=== PATIENT | female | born 1930 | race Caucasian/White ===

== ENCOUNTER 2019-06-11 10:04 | Inpatient (IN) | payer MEDICARE, OTHER ==
[2019-06-11] MEDS ORDERED: HYDROmorphone 0.5 MG/0.5 ML Syringe IVPUSH ONE (11:20)
--- NOTE | 2019-06-11 12:28 | EDM.PDOC ---
ED HPI GENERAL MEDICAL PROBLEM - General Chief Complaint: Lower Extremity Injury/Pain Stated Complaint: FALL,LEFT KNEE PAIN Time Seen by Provider: 06/11/19 11:07 Source of Information: Reports: [facility]sp Records, RN Notes Reviewed, Other ( Staff member from [facility] [place]) History Limitations: Reports: Altered Mental Status (hx/of dementia) - History of Present Illness INITIAL COMMENTS - FREE TEXT/NARRATIVE: Patient is an 88-year-old female who presents to the ED for evaluation of a left leg injury. Patient lives at the [facility] - [place], [place], which is a memory care facility. She presents with a staff member from the [facility] [place], [place]. The patient fell in her bathroom this morning, there was no one present at that time. But the patient denies any sort of head injury, there is no obvious discoloration, bruising, or swelling noted to the head. She is complaining of severe left knee pain, and also pain into her left hip. She states that her whole leg from her tippy toes to her hip hurts. She has not had any prior injury to this leg that would have been causing issues beforehand. Is not been able to bear weight, and was brought here by wheelchair and bus, and then was transferred to the bed by Misty lift in the ER. Patient is alert and coherent at this time. She does have a history of A. fib, and she is on metoprolol, and Eliquis for this. She would rate her pain at a 10 out of 10. Left Hip Pain Score (Numeric/FACES): 10 Left Knee Pain Score (Numeric/FACES): 10 - Related Data Allergies Allergy/AdvReac Type Severity Reaction Status Date / Time aloe vera Allergy Rash Verified 06/11/19 10:36 Home Meds: Home Meds Acetaminophen [Tylenol Arthritis Pain] 650 mg PO Q8H PRN 06/11/19 [History] Apixaban [Eliquis] 2.5 mg PO BID 06/11/19 [History] Ascorbate Calcium [Vitamin C] 500 mg PO MOWEFR 06/11/19 [History] Bisacodyl [Dulcolax] 5 mg PO DAILY PRN 06/11/19 [History] Celecoxib 200 mg PO DAILY 06/11/19 [History] Cholecalciferol (Vitamin D3) [Vitamin D3] 1,000 unit PO DAILY 06/11/19 [History] Docusate Sodium [Colace] 100 mg PO TID PRN 06/11/19 [History] Ferrous Sulfate 325 mg PO MOWEFR 06/11/19 [History] Menthol [Biofreeze] 1 applic TOP TID PRN 06/11/19 [History] Metoprolol Succinate [Toprol Xl] 25 mg PO DAILY 06/11/19 [History] Mirtazapine 7.5 mg PO BEDTIME 06/11/19 [History] Omeprazole 20 mg PO DAILY 06/11/19 [History] Sertraline [Zoloft] 75 mg PO DAILY 06/11/19 [History] Past Medical History HEENT History: Reports: Other (See Below) Other HEENT History: has no teeth. 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 History: Reports: Neurological History: Reports: Other (See Below) Other Neuro History: dementia--pt resides in memory care facility Psychiatric History: Reports: Dementia Hematologic History: Reports: Anemia - Past Surgical History HEENT Surgical History: Reports: Tonsillectomy GI Surgical History: Reports: Appendectomy, Cholecystectomy Social & Family History - Tobacco Use Smoking Status *Q: Never Smoker Second Hand Smoke Exposure: No - Caffeine Use Caffeine Use: Reports: Tea - Recreational Drug Use Recreational Drug Use: No Review of Systems - Review of Systems Review Of Systems: See Below Constitutional: Denies: Chills, Fever Respiratory: Denies: Shortness of Breath Cardiovascular: Denies: Chest Pain GI/Abdominal: Denies: Abdominal Pain, Diarrhea, Nausea, Vomiting Genitourinary: Denies: Dysuria Musculoskeletal: Reports: Joint Pain (Left hip/knee) Skin: Denies: Bruising Neurological: Denies: Numbness, Tingling ED EXAM, GENERAL - Physical Exam Exam: See Below Exam Limited By: Altered Mental Status (pt follows commands appropriately) General Appearance: Alert, WD/WN, No Apparent Distress Eye Exam: Bilateral Eye: EOMI, Normal Inspection, PERRL Ears: Normal External Exam, Normal Canal, Hearing Grossly Normal, Normal TMs Nose: Normal Inspection Throat/Mouth: Normal Inspection, Normal Lips, Normal Teeth, Normal Gums, Normal Oropharynx, Normal Voice, No Airway Compromise Head: Atraumatic, Normocephalic Neck: Normal Inspection Respiratory/Chest: No Respiratory Distress, Lungs Clear, Normal Breath Sounds, No Accessory Muscle Use, Chest Non-Tender Cardiovascular: Normal Peripheral Pulses, Regular Rate, Rhythm, No Murmur Peripheral Pulses: 3+: Dorsalis Pedis (L), Dorsalis Pedis (R) GI/Abdominal: Normal Bowel Sounds, Soft, Non-Tender, No Distention, No Mass Extremities: Normal Inspection, Normal Capillary Refill, Limited Range of Motion (pt unable to move L leg much at all d/t pain), Other (pt is tender to palpation of superior left knee, slight deformity noted, no pain with palpation of L hip joing). No: Joint Swelling Neurological: Alert, Normal Cognition (appropriate for her self), No Motor/ Sensory Deficits Psychiatric: Normal Affect, Normal Mood Skin Exam: Warm, Dry, Intact, Normal Color, No Rash EKG INTERPRETATION EKG Date: 06/11/19 Time: 12:31 Rhythm: A-Fib (Rate of 75-100.) Rate (Beats/Min): 83 [place]: Normal P-Wave: Absent QRS: Normal ST-T: Normal QT: Prolonged Comparison: NA - No Prior EKG EKG Interpretation Comments: EKG was reviewed by myself and Dr. Rodriguez, no acute ischemic changes were noted. Course - Vital Signs Last Recorded V/S: Last Vital Signs Temp 98.6 F 06/11/19 19:15 Pulse 77 06/11/19 21:32 Resp 14 06/11/19 19:15 BP 128/81 06/11/19 21:02 Pulse Ox 98 06/11/19 21:32 - Orders/Labs/Meds Orders: Active Orders 24 hr Category Date Time Status Antiembolic Devices [RC] BID Care 06/11/19 19:38 Active Elevate Extremity [RC] BID Care 06/11/19 19:38 Active Insert Coles Catheter [Insert Urinary Catheter] [OM.PC] Care 06/11/19 15:45 Ordered Q24H Notify Provider Consults [RC] ASDIRECTED Care 06/11/19 12:30 Active Notify Provider [RC] ASDIRECTED Care 06/11/19 18:32 Active Oxygen Therapy [RC] ASDIRECTED Care 06/11/19 18:32 Active Pulse Oximetry [RC] ASDIRECTED Care 06/11/19 18:32 Active RT Incentive Spirometry [RC] Q1HWA Care 06/11/19 19:35 Active Urinary Catheter Assessment [RC] 04,10,16,22 Care 06/11/19 15:39 Active Consult to Physician [CONS] Stat Cons 06/11/19 12:30 Active OT Evaluation and Treatment [CONS] Routine Cons 06/11/19 19:35 Active PT Evaluation and Treatment [CONS] Routine Cons 06/11/19 19:35 Active Knee 1V or 2V Lt [CR] Timed Exams 06/11/19 19:38 Taken COMPREHENSIVE METABOLIC PN,CMP [CHEM] AM Lab 06/12/19 19:45 Ordered Acetaminophen/HYDROcodone [Dingle 325-5 MG] Med 06/11/19 19:41 Active 1 - 2 tab PO Q6H PRN ceFAZolin [Ancef] 2 gm Med 06/12/19 00:00 Active Premix Bag 1 bag IV Q8H Schedule Procedure [COMM] Stat Oth 06/11/19 15:08 Ordered Sequential Compression Device [OM.PC] Per Unit Routine Oth 06/11/19 19:35 Ordered Weight bearing status [OM.PC] Routine Oth 06/11/19 19:42 Ordered Medication Orders Hydrocodone Bitart/Acetaminophen (Dingle 325-5 Mg) 1 - 2 tab PO Q6H PRN PRN Reason: Pain Last Admin: 06/11/19 20:25 Dose: 2 tab Cefazolin Sodium/Dextrose 2 gm (/ Premix) 50 mls @ 100 mls/hr IV Q8H BETH Stop: 06/12/19 16:29 Lactated Ringer's (Ringers, Lactated) 1,000 mls @ 75 mls/hr IV ASDIRECTED BETH Last Admin: 06/11/19 20:25 Dose: 75 mls/hr Labs: Laboratory Tests 06/11/19 06/11/19 Range/Units 10:55 10:55 WBC 8.82 (3.98-10.04) K/mm3 RBC 4.18 (3.98-5.22) M/mm3 Hgb 10.7 L (11.2-15.7) gm/dl Hct 32.3 L (34.1-44.9) % MCV 77.3 L (79.4-94.8) fl MCH 25.6 (25.6-32.2) pg MCHC 33.1 (32.2-35.5) g/dl RDW Std Deviation 46.9 H (36.4-46.3) fL Plt Count 323 (182-369) K/mm3 MPV 10.4 (9.4-12.3) fl Neut % (Auto) 79.9 H (34.0-71.1) % Lymph % (Auto) 11.2 L (19.3-51.7) % [place] % (Auto) 7.6 (4.7-12.5) % Eos % (Auto) 0.9 (0.7-5.8) Baso % (Auto) 0.1 (0.1-1.2) % Neut # (Auto) 7.04 H (1.56-6.13) K/mm3 Lymph # (Auto) 0.99 L (1.18-3.74) K/mm3 [place] # (Auto) 0.67 H (0.24-0.36) K/mm3 Eos # (Auto) 0.08 (0.04-0.36) K/mm3 Baso # (Auto) 0.01 (0.01-0.08) K/mm3 Sodium 136 (136-145) mEq/L Potassium 4.1 (3.5-5.1) mEq/L Chloride 103 (98-107) mEq/L Carbon Dioxide 23 (21-32) mEq/L Anion Gap 14.1 (5-15) BUN 28 H (7-18) mg/dL Creatinine 1.3 H (0.55-1.02) mg/dL Est Cr Clr Drug Dosing 24.57 mL/min Estimated GFR (MDRD) 39 (>60) mL/min BUN/Creatinine Ratio 21.5 H (14-18) Glucose 117 H (83-115) mg/dL Calcium 8.2 L (8.5-10.1) mg/dL Total Bilirubin 1.0 (0.2-1.0) mg/dL AST 26 (15-37) U/L ALT 40 (14-59) U/L Alkaline Phosphatase 101 (46-116) U/L Total Protein 6.2 L (6.4-8.2) g/dl Albumin 3.0 L (3.4-5.0) g/dl Globulin 3.2 gm/dL Albumin/Globulin Ratio 0.9 L (1-2) Meds: Medications Generic Name Dose Route Start Last Admin Trade Name Danilo PRN Reason Stop Dose Admin Hydrocodone Bitart/Acetaminophen 1 - 2 tab 06/11/19 19:41 06/11/19 20:25 Dingle 325-5 Mg PO 2 tab Q6H PRN Administration Pain Cefazolin Sodium/Dextrose 2 gm 50 mls @ 100 mls/hr 06/12/19 00:00 / Premix IV 06/12/19 16:29 Q8H BETH Lactated Ringer's 1,000 mls @ 75 mls/hr 06/11/19 20:00 06/11/19 20:25 Ringers, Lactated IV 75 mls/hr ASDIRECTED BETH Administration Discontinued Medications Generic Name Dose Route Start Last Admin Trade Name Danilo PRN Reason Stop Dose Admin Bupivacaine HCl Confirm 06/11/19 15:40 Sensorcaine-Mpf 0.25% Administered 06/11/19 15:41 Dose 20 ml .ROUTE .STK-MED ONE Bupivacaine HCl Confirm 06/11/19 16:25 06/11/19 18:12 Sensorcaine-Mpf 0.25% Administered 06/11/19 16:26 20 ml Dose Administration 10 ml .ROUTE .STK-MED ONE Bupivacaine HCl/Dextrose Confirm 06/11/19 15:28 Marcaine 0.75% Spinal Administered 06/11/19 15:29 Dose 2 ml .ROUTE .STK-MED ONE Cefazolin Sodium Confirm 06/11/19 15:23 Ancef Administered 06/11/19 15:24 Dose 2 gm .ROUTE .STK-MED ONE Ephedrine Sulfate Confirm 06/11/19 16:15 Ephedrine In Ns Administered 06/11/19 16:16 Dose 25 mg .ROUTE .STK-MED ONE Ephedrine Sulfate Confirm 06/11/19 17:06 Ephedrine In Ns Administered 06/11/19 17:07 Dose 25 mg .ROUTE .STK-MED ONE Fentanyl Confirm 06/11/19 15:21 Sublimaze Administered 06/11/19 15:22 Dose 100 mcg .ROUTE .STK-MED ONE Hydromorphone HCl 0.5 mg 06/11/19 11:20 06/11/19 11:35 Dilaudid IVPUSH 06/11/19 11:21 0.5 mg ONETIME ONE Administration Sodium Chloride 1,000 mls @ 999 mls/hr 06/11/19 13:47 06/11/19 13:57 Normal Saline IV 06/11/19 14:47 999 mls/hr ONETIME ONE Administration Sodium Chloride 1,000 mls @ 999 mls/hr 06/11/19 14:33 06/11/19 15:16 Normal Saline IV 06/11/19 15:33 500 mls/hr ONETIME ONE Administration Lidocaine HCl Confirm 06/11/19 15:23 Xylocaine-Mpf 1% Administered 06/11/19 15:24 Dose 4 mls @ as directed .ROUTE .STK-MED ONE Lactated Ringer's Confirm 06/11/19 15:30 Ringers, Lactated Administered 06/11/19 15:31 Dose 1,000 mls @ as directed .ROUTE .STK-MED ONE Phenylephrine HCl Confirm 06/11/19 16:22 Phenylephrine In Ns 100 Mcg/Ml Administered 06/11/19 16:23 Dose 1 mg .ROUTE .STK-MED ONE Phenylephrine HCl Confirm 06/11/19 16:47 Phenylephrine In Ns 100 Mcg/Ml Administered 06/11/19 16:48 Dose 1 mg .ROUTE .STK-MED ONE Phenylephrine HCl Confirm 06/11/19 18:01 Phenylephrine In Ns 100 Mcg/Ml Administered 06/11/19 18:02 Dose 1 mg .ROUTE .STK-MED ONE Propofol Confirm 06/11/19 15:20 Diprivan 20 Ml Administered 06/11/19 15:21 Dose 200 mg .ROUTE .STK-MED ONE - Re-Assessments/Exams Free Text/Narrative Re-Assessment/Exam: 06/11/19 12:28 Patient presents to the ED for the evaluation of a left leg injury. Did order left hip and left knee x-ray, and this does demonstrate a distal anterior displaced fracture of the left femur. Patient was given 0.5 mg of Dilaudid, and has achieved adequate pain control with this. Labs were drawn, CBC, CMP, will order EKG and chest x-ray as the patient will likely need fixation of this in the OR due to the displacement. I have called Dr. Michelle, so he can look at the films. He is in surgery, and will review this between cases. 06/11/19 14:34 Official radiology read is pending on both studies, however the hospitalist Dr. Blanquita Glover was over to evaluate the patient, and is questioning an impacted fracture of the left hip. I have called radiology to have Dr. Faulkner read this urgently as it was made known to me that Dr. Michelle is trying to get her cleared for surgery sooner rather than later. Upon review of the films, the head of the left femur does look slightly impacted, this was not obvious when I looked at the initial films. The whole hip joint is severely osteoarthritic. The patient does have an anteriorly displaced distal femur fracture. Labs are essentially WNL, and Chest x-ray and EKG was also done, EKG demonstrated A-fib, Chest x-ray demonstrates no focal abnormalities, but again, official radiology read is pending at this time. RN has informed me that her blood pressure is mildly low systolically is in the high 80s. I did order 1 bolus of fluids to be given wide open, and have ordered a second to be ran at 500 mils per hour as her systolic blood pressure was still in the high 80s after the initial bolus. Of note patient is laying flat in bed, as this causes her the least amount of pain. 06/11/19 15:08 Official radiology reads are done, there is severe degenerative change noted within the left hip, but no impaction fracture appreciated. The only acute finding was the distal displaced femur fracture as noted in my prior reads. Chest x-ray shows findings suspicious for mild CHF, but no other acute findings. At this time it is made apparent to me that the patient is going for surgery for fixation of the femur fracture. Departure - Departure Time of Disposition: 14:30 Disposition: DC/Tfer to Critical Access [facility] Condition: Fair Clinical Impression: Femur fracture, left Qualifiers: Encounter type: initial encounter Femur location: distal, unspecified portion Fracture type: closed Fracture morphology: other fracture Qualified Code(s): S72.492A - Other fracture of lower end of left femur, initial encounter for closed fracture - Discharge Information *PRESCRIPTION DRUG MONITORING PROGRAM REVIEWED*: No *COPY OF PRESCRIPTION DRUG MONITORING REPORT IN PATIENT MURIEL: No Sepsis Event Note - Evaluation Sepsis Screening Result: No Definite Risk - Focused Exam Vital Signs: Vital Signs Temp Pulse Resp BP Pulse Ox Pulse Ox 06/11/19 19:15 98.6 F 14 109/83 94 L 06/11/19 19:00 18 93/76 94 L 06/11/19 18:50 14 102/77 98 06/11/19 18:40 14 90/54 L 100 93 L 06/11/19 18:26 98.2 F 13 90/64 93 L 06/11/19 15:30 98.3 F 80 17 111/80 95 06/11/19 13:15 98.5 F Date Exam was Performed: 06/11/19 Time Exam was Performed: 22:25 - My Orders Last 24 Hours: My Active Orders 06/11/19 12:30 Notify Provider Consults [RC] ASDIRECTED Consult to Physician [CONS] Stat - Assessment/Plan Last 24 Hours: My Active Orders 06/11/19 12:30 Notify Provider Consults [RC] ASDIRECTED Consult to Physician [CONS] Stat
[2019-06-11] MEDS ORDERED: Sodium Chloride 0.9% 1,000 ML IV ONE ×2 (13:47→14:33)
--- NOTE | 2019-06-11 14:26 | PCM.CONS ---
H&P History of Present Illness - General Date of Service: 06/11/19 - History of Present Illness Initial Comments - Free Text/Narative: --History obtained by chart review-- Patient fell in the restroom this morning around 9:30AM. Fall was not witnessed but they deny any LOC, loss of continence (bowel or urinary), head trauma, chest pain or any other complaints. Patient complained of pain immediately after fall for which she was brought to the ED by [facility] staff Left Hip Pain Score (Numeric/FACES): 10 Left Knee Pain Score (Numeric/FACES): 10 - Related Data Allergies/Adverse Reactions: Allergies Allergy/AdvReac Type Severity Reaction Status Date / Time aloe vera Allergy Rash Verified 06/11/19 10:36 Past Medical History HEENT History: Reports: Other (See Below) Other HEENT History: has no teeth. 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: Neurological History: Reports: Other (See Below) Other Neuro History: dementia--pt resides in memory care facility Psychiatric History: Reports: Dementia Hematologic History: Reports: Anemia - Past Surgical History HEENT Surgical History: Reports: Tonsillectomy GI Surgical History: Reports: Appendectomy, Cholecystectomy Social & Family History - Tobacco Use Smoking Status *Q: Never Smoker Second Hand Smoke Exposure: No - Caffeine Use Caffeine Use: Reports: Tea - Recreational Drug Use Recreational Drug Use: No H&P Review of Systems - Review of Systems: Review Of Systems: Unable To Obtain Reason Not Obtained: Patient with altered mental status, worse than baseline Exam - Exam Exam: See Below - Vital Signs Vital Signs: Last Vital Signs Temp 99.4 F 06/11/19 10:04 Pulse 94 06/11/19 10:04 Resp 20 06/11/19 10:04 BP 136/100 H 06/11/19 10:04 Pulse Ox 97 06/11/19 10:04 Weight: 75.478 kg - Exam General: Alert. No: Mild Distress HEENT: Conjunctiva Clear, EACs Clear, EOMI, Hearing Intact, PERRLA Neck: Supple, Trachea Midline Lungs: Clear to Auscultation, Normal Respiratory Effort Cardiovascular: Regular Rate, Regular Rhythm. No: Systolic Murmur, Diastolic Murmur, Rubs, Gallop/S3, Gallop/S4 GI/Abdominal Exam: Normal Bowel Sounds, Soft, Non-Tender, No Organomegaly Extremities: Other (pain in left hip) Skin: Ecchymosis Skin Alteration Location (Drawings Not To Scale): 1 - large ecchymotic lesion Psychiatric: Normal Affect, Normal Mood - Patient Data Result Diagrams: 06/11/19 10:55 06/11/19 10:55 Sepsis Event Note - Evaluation Sepsis Screening Result: No Definite Risk - Focused Exam Vital Signs: Vital Signs Temp Pulse Resp BP Pulse Ox 06/11/19 10:04 99.4 F 94 20 136/100 H 97 Date Exam was Performed: 06/11/19 Time Exam was Performed: 14:50 Consult PN Assessment/Plan POD#: 0 Problem List Initiated/Reviewed/Updated: Yes Plan: Femoral distal fracture 2/2 fall from own height Primary osteoarthritis of left hip Vitamin D deficiency Fall from own height this AM Fracture does not appear displaced Geriatric estimated risk probability for perioperative myocardial infarction or cardiac arrest 0.3% Estimated risk of adverse outcome with non-cardiac surgery, very low risk Estimate rate of myocardial infarction, pulmonary edema, ventricular fibrillation, cardiac arrest, or complete heart block 0.4% PLAN - Surgery today - Pain management Dementia Major depressive disorder Anxiety Can transfer, ambulate and bed mobility by himself Uses a 4 wheeled walker for ambulation Dress and personal hygiene as well as bathing with 1 assist Is continent as for toileting Home management with Sertraline, Mirtazapine PLAN - Continue home meds once PO Atrial fibrillation Chronic anticoagulation with Eliquis Large hematoma of right chest Rate controlled HR 88 on admission Home management with metoprolol and Eliquis Given 3 extra doses of double her prescribed dose last week She has a large ecchymotic lesion with hematoma on right chest that extends from axilla down to breast PLAN - Continue metoprolol after surgery - Monitor hematoma size and temperature, if worsening will et US Constipation Unknown last BM Home management with colace PLAN - Continue home colace once PO Hiatal hernia 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 esophagitis No signs of GI bleed Hb 10.7 PLAN - Continue Omeprazole PROPHYLAXIS: DVT- Hold Eliquis for now GI- Continue home omeprazole CODE STATUS: FULL CODE DISPOSITION: Patient will be admitted for surgery. PERIOPERATIVE RISK EVALUATION Geriatric estimated risk probability for perioperative myocardial infarction or cardiac arrest 0.3% Estimated risk of adverse outcome with non-cardiac surgery, very low risk Estimate rate of myocardial infarction, pulmonary edema, ventricular fibrillation, cardiac arrest, or complete heart block 0.4% Requesting Provider: Tee Michelle MD Date Consult Requested: 06/11/19 Reason for Consult: Pre-operative evaluation Patient History Reviewed: Yes Admission H&P Reviewed: Yes Consult Result/Summary:: PERIOPERATIVE RISK EVALUATION Geriatric estimated risk probability for perioperative myocardial infarction or cardiac arrest 0.3% Estimated risk of adverse outcome with non-cardiac surgery, very low risk Estimate rate of myocardial infarction, pulmonary edema, ventricular fibrillation, cardiac arrest, or complete heart block 0.4% Time Spent (in minutes): 60
--- NOTE | 2019-06-11 14:55 | PCM.PREANE ---
Preanesthetic Assessment - Procedure Proposed Procedure: ORIF left femur - Anesthesia/Transfusion/Family Hx Anesthesia History: Prior Anesthesia Without Reaction Family History of Anesthesia Reaction: No Transfusion History: Prior Transfusion Without Reaction - Review of Systems General: Fatigue Pulmonary: No Symptoms Cardiovascular: No Symptoms Gastrointestinal: No Symptoms Neurological: No Symptoms Other: Reports: None - Physical Assessment NPO Status Date: 06/11/19 NPO Status Time: 08:00 Vital Signs: Last Vital Signs Temp 37.4 C 06/11/19 10:04 Pulse 94 06/11/19 10:04 Resp 20 06/11/19 10:04 BP 136/100 H 06/11/19 10:04 Pulse Ox 97 06/11/19 10:04 Height: 1.57 m Weight: 75.478 kg ASA Class: 3 Mental Status: Other (dementia) Thyro-Mental Finger Breadths: 3 Mouth Opening Finger Breadths: 2 ROM/Head Extension: Full Lungs: Clear to Auscultation, Normal Respiratory Effort Cardiovascular: Irregular Rhythm (A-Fib) - Lab Values: Laboratory Last Values WBC 8.82 K/mm3 (3.98-10.04) 06/11/19 10:55 RBC 4.18 M/mm3 (3.98-5.22) 06/11/19 10:55 Hgb 10.7 gm/dl (11.2-15.7) L 06/11/19 10:55 Hct 32.3 % (34.1-44.9) L 06/11/19 10:55 MCV 77.3 fl (79.4-94.8) L 06/11/19 10:55 MCH 25.6 pg (25.6-32.2) 06/11/19 10:55 MCHC 33.1 g/dl (32.2-35.5) 06/11/19 10:55 RDW Std Deviation 46.9 fL (36.4-46.3) H 06/11/19 10:55 Plt Count 323 K/mm3 (182-369) 06/11/19 10:55 MPV 10.4 fl (9.4-12.3) 06/11/19 10:55 Neut % (Auto) 79.9 % (34.0-71.1) H 06/11/19 10:55 Lymph % (Auto) 11.2 % (19.3-51.7) L 06/11/19 10:55 [place] % (Auto) 7.6 % (4.7-12.5) 06/11/19 10:55 Eos % (Auto) 0.9 (0.7-5.8) 06/11/19 10:55 Baso % (Auto) 0.1 % (0.1-1.2) 06/11/19 10:55 Neut # (Auto) 7.04 K/mm3 (1.56-6.13) H 06/11/19 10:55 Lymph # (Auto) 0.99 K/mm3 (1.18-3.74) L 06/11/19 10:55 [place] # (Auto) 0.67 K/mm3 (0.24-0.36) H 06/11/19 10:55 Eos # (Auto) 0.08 K/mm3 (0.04-0.36) 06/11/19 10:55 Baso # (Auto) 0.01 K/mm3 (0.01-0.08) 06/11/19 10:55 Sodium 136 mEq/L (136-145) 06/11/19 10:55 Potassium 4.1 mEq/L (3.5-5.1) 06/11/19 10:55 Chloride 103 mEq/L (98-107) 06/11/19 10:55 Carbon Dioxide 23 mEq/L (21-32) 06/11/19 10:55 Anion Gap 14.1 (5-15) 06/11/19 10:55 BUN 28 mg/dL (7-18) H 06/11/19 10:55 Creatinine 1.3 mg/dL (0.55-1.02) H 06/11/19 10:55 Est Cr Clr Drug Dosing 24.57 mL/min 06/11/19 10:55 Estimated GFR (MDRD) 39 mL/min (>60) 06/11/19 10:55 BUN/Creatinine Ratio 21.5 (14-18) H 06/11/19 10:55 Glucose 117 mg/dL (83-115) H 06/11/19 10:55 Calcium 8.2 mg/dL (8.5-10.1) L 06/11/19 10:55 Total Bilirubin 1.0 mg/dL (0.2-1.0) 06/11/19 10:55 AST 26 U/L (15-37) 06/11/19 10:55 ALT 40 U/L (14-59) 06/11/19 10:55 Alkaline Phosphatase 101 U/L (46-116) 06/11/19 10:55 Total Protein 6.2 g/dl (6.4-8.2) L 06/11/19 10:55 Albumin 3.0 g/dl (3.4-5.0) L 06/11/19 10:55 Globulin 3.2 gm/dL 06/11/19 10:55 Albumin/Globulin Ratio 0.9 (1-2) L 06/11/19 10:55 - Imaging/EKG Impressions: EKG A-Fib with prolonged QT - Allergies Allergies/Adverse Reactions: Allergies Allergy/AdvReac Type Severity Reaction Status Date / Time aloe vera Allergy Rash Verified 06/11/19 10:36 - Anesthesia Plan Beta Irma: Metoprolol Med Last Dose Date: 06/11/19 Med Last Dose Time: 09:30 - Acknowledgements Anesthesia Type Planned: Spinal Pt an Appropriate Candidate for the Planned Anesthesia: Yes Alternatives and Risks of Anesthesia Discussed w Pt/Guardian: Yes Pt/Guardian Understands and Agrees with Anesthesia Plan: Yes PreAnesthesia Questionnaire HEENT History: Reports: Other (See Below) Other HEENT History: has no teeth. Cardiovascular History: Reports: Afib Gastrointestinal History: Reports: GERD Genitourinary History: Reports: UTI, Recurrent [employer] History: Reports: Neurological History: Reports: Other (See Below) Other Neuro History: dementia--pt resides in memory care facility Psychiatric History: Reports: Dementia Hematologic History: Reports: Anemia - Past Surgical History HEENT Surgical History: Reports: Tonsillectomy GI Surgical History: Reports: Appendectomy, Cholecystectomy - SUBSTANCE USE Smoking Status *Q: Never Smoker Second Hand Smoke Exposure: No Days Per Week of Alcohol Use: 0 Number of Drinks Per Day: 0 Total Drinks Per Week: 0 Recreational Drug Use History: No - CURRENT (IN HOUSE) MEDS Current Meds: Current Medications Sodium Chloride (Normal Saline) 1,000 mls @ 999 mls/hr IV ONETIME ONE Stop: 06/11/19 15:33 Discontinued Medications Hydromorphone HCl (Dilaudid) 0.5 mg IVPUSH ONETIME ONE Stop: 06/11/19 11:21 Last Admin: 06/11/19 11:35 Dose: 0.5 mg Sodium Chloride (Normal Saline) 1,000 mls @ 999 mls/hr IV ONETIME ONE Stop: 06/11/19 14:47 Last Admin: 06/11/19 13:57 Dose: 999 mls/hr
--- NOTE | 2019-06-11 15:03 | CR ---
Left knee: AP and lateral views of the left knee were obtained. Displaced distal femur fracture is seen within the epicondylar region. Displacement of the proximal fragment is anterior with slight overlapping of the fracture fragments. Severe joint space narrowing is noted within the medial compartment of the left knee. Osteophytes are noted off the medial joint. Bony structures are osteopenic. Soft tissue swelling is noted. Impression: 1. Displaced distal femur fracture. 2. Other findings as noted above. Diagnostic code #5 This report was dictated in [place] Standard Time
--- NOTE | 2019-06-11 15:03 | CR ---
Pelvis and left hip: AP view of the pelvis is obtained as well as AP and lateral views of the left hip. Severe joint space narrowing and degenerative subchondral cysts are seen within the left hip as well as some remodeling of the femoral head and acetabulum. Joint space within the right hip is preserved. Osteopenia is seen. Disc space narrowing and scoliosis is noted within the spine. Nothing acute is seen. Impression: 1. Severe degenerative change within the left hip as noted above. 2. Other findings as described above. 3. Nothing acute is appreciated on AP pelvis or on two- view left hip exam. Diagnostic code #3 This report was dictated in [place] Standard Time
--- NOTE | 2019-06-11 15:03 | CR ---
Chest: Portable view of the chest was obtained. Comparison: No prior chest x-ray. Heart is enlarged. Tortuous thoracic aorta is seen. Pulmonary vessels are slightly congested. Lungs otherwise are clear. Degenerative change is noted within both shoulders. Bony structures are osteopenic. Impression: 1. Findings suspicious for mild CHF. 2. Other nonacute findings as noted above. Diagnostic code #3 This report was dictated in [place] Standard Time
[2019-06-11] MEDS ORDERED: Propofol 200 MG/20 ML SDV ONE (15:20)
[2019-06-11] MEDS ORDERED: fentaNYL 100 MCG/2 ML SDV ONE (15:21)
[2019-06-11] MEDS ORDERED: Lidocaine 1% 4 ML ONE (15:23)
[2019-06-11] MEDS ORDERED: ceFAZolin 1 GM Vial ONE (15:23)
[2019-06-11] MEDS ORDERED: Bupivacaine 0.75%/D5W 2 ML Amp ONE (15:28)
[2019-06-11] MEDS ORDERED: Lactated Ringers 1,000 ML ONE (15:30)
[2019-06-11] MEDS ORDERED: Bupivacaine 0.25% 10 ML SDV ONE ×2 (15:40→16:25)
[2019-06-11] MEDS ORDERED: ePHEDrine/Normal Saline 25 MG/5 ML Syringe ONE ×2 (16:15→17:06)
[2019-06-11] MEDS ORDERED: Phenylephrine/Normal Saline 100 MCG/ML 10 ML Syringe ONE ×3 (16:22→18:01)
--- NOTE | 2019-06-11 18:33 | PCM.POSTAN ---
POST ANESTHESIA ASSESSMENT - MENTAL STATUS Mental Status: Alert, Oriented - VITAL SIGNS Vital Signs: Last Vital Signs Temp 36.8 C 06/11/19 18:26 Pulse 80 06/11/19 15:30 Resp 13 06/11/19 18:26 BP 90/64 06/11/19 18:26 Pulse Ox 93 L 06/11/19 18:26 - RESPIRATORY Respiratory Status: Respiratory Rate WNL, Airway Patent, O2 Saturation Stable - CARDIOVASCULAR CV Status: Pulse Rate WNL, Blood Pressure Stable - GASTROINTESTINAL GI Status: No Symptoms - PAIN Pain Score: 0 - POST OP HYDRATION Hydration Status: Adequate & Stable - OBSERVATIONS Free Text/Narrative:: no anesthesia complications noted
--- NOTE | 2019-06-11 19:10 | CR ---
Left knee: 14 fluoroscopic spot views were obtained utilizing C-arm device. Study shows fixation of previous distal left knee fracture. Plate and screws are noted on the final films. Fluoroscopy time is given as 220 seconds. Impression: 1. Procedural study as noted above. Diagnostic code #2 This report was dictated in [place] Standard Time
[2019-06-11] MEDS: Lactated Ringers 1,000 ML IV SCH (20:25)
[2019-06-11] MEDS: Acetaminophen/HYDROcodone 325-5 MG Tab PO PRN (20:25)
[2019-06-11] MEDS: ceFAZolin 2 GM in Premix Bag 1 BAG IV SCH (23:01)
[2019-06-12] MEDS ORDERED: Furosemide 20 MG/2 ML VIAL IVPUSH ONE (01:05)
[2019-06-12] MEDS: Acetaminophen/HYDROcodone 325-5 MG Tab PO PRN ×3 (02:59→18:56)
--- NOTE | 2019-06-12 07:48 | PCM48HPAN ---
Post Anesthesia Note - EVALUATION WITHIN 48HRS OF ANESTHETIC Vital Signs in Normal Range: Yes Patient Participated in Evaluation: Yes Respiratory Function Stable: Yes Airway Patent: Yes Cardiovascular Function Stable: Yes Hydration Status Stable: Yes Pain Control Satisfactory: Yes Nausea and Vomiting Control Satisfactory: Yes Mental Status Recovered: Yes Vital Signs: Last Vital Signs Temp 36.8 C 06/12/19 03:05 Pulse 96 06/12/19 03:05 Resp 16 06/12/19 03:05 BP 88/58 L 06/12/19 03:05 Pulse Ox 93 L 06/12/19 03:05
[2019-06-12] MEDS: ceFAZolin 2 GM in Premix Bag 1 BAG IV SCH ×2 (08:02→16:20)
--- NOTE | 2019-06-12 10:20 | CR ---
Left knee: AP and lateral views of the left knee were obtained. Comparison: Operative study performed earlier on same day as well as baseline left knee exam of 06/11/19. Distal femur fracture is seen. Plate and screws are in place affixing the fracture. Soft tissue air is noted as well as skin marybel. Osteopenia is seen. Mild degenerative change is noted within the lateral joint. Impression: 1. Plate and screws affix previous femur fracture. 2. Other findings as noted above. Diagnostic code #2 This report was dictated in [place] Standard Time I agree with preliminary report from [facility], finalized on 06/11/19, 10:46 PM Central Time
[2019-06-12] MEDS: Lactated Ringers 1,000 ML IV SCH (10:29)
--- NOTE | 2019-06-12 13:00 | CT ---
Head CT Technique: Multiple axial sections through the brain were obtained. Intravenous contrast was not utilized. Comparison: No prior intracranial imaging is available. Findings: Ventricles along with basal cisterns and sulci over the convexities are mildly prominent. No abnormal parenchymal densities are seen. No evidence of intracranial hemorrhage. No midline shift or mass effect is seen. Visualized mastoid sinuses show nothing acute. Visualized paranasal sinuses show nothing acute. No acute calvarial abnormality is appreciated. Mild atherosclerotic calcification is seen within the carotid siphon and within the vertebral vessels. Impression: 1. Mild senescent change. 2. No acute intracranial abnormality is identified. Diagnostic code #2 This report was dictated in [place] Standard Time
--- NOTE | 2019-06-12 13:53 | PCM.HP.2 ---
H&P History of Present Illness - General Date of Service: 06/11/19 Admit Problem/Dx: Admission Diagnosis/Problem Admission Diagnosis/Problem Fracture of distal end of femur - History of Present Illness Initial Comments - Free Text/Narative: --History obtained by chart review and verbal staff reports-- Patient fell in the restroom this morning around 9:30AM. Fall was not witnessed but they deny any LOC, loss of continence (bowel or urinary), head trauma, chest pain or any other complaints. Patient complained of pain immediately after fall for which she was brought to the ED by [facility] staff Left Hip Pain Score (Numeric/FACES): 10 Left Knee Pain Score (Numeric/FACES): 10 - Related Data Allergies/Adverse Reactions: Allergies Allergy/AdvReac Type Severity Reaction Status Date / Time aloe vera Allergy Rash Verified 06/11/19 10:36 Home Medications: Home Meds Acetaminophen [Tylenol Arthritis Pain] 650 mg PO Q8H PRN 06/11/19 [History] Apixaban [Eliquis] 2.5 mg PO BID 06/11/19 [History] Ascorbate Calcium [Vitamin C] 500 mg PO MOWEFR 06/11/19 [History] Bisacodyl [Dulcolax] 5 mg PO DAILY PRN 06/11/19 [History] Celecoxib 200 mg PO DAILY 06/11/19 [History] Cholecalciferol (Vitamin D3) [Vitamin D3] 1,000 unit PO DAILY 06/11/19 [History] Docusate Sodium [Colace] 100 mg PO TID PRN 06/11/19 [History] Ferrous Sulfate 325 mg PO MOWEFR 06/11/19 [History] Menthol [Biofreeze] 1 applic TOP TID PRN 06/11/19 [History] Metoprolol Succinate [Toprol Xl] 25 mg PO DAILY 06/11/19 [History] Mirtazapine 7.5 mg PO BEDTIME 06/11/19 [History] Omeprazole 20 mg PO DAILY 06/11/19 [History] Sertraline [Zoloft] 75 mg PO DAILY 06/11/19 [History] Past Medical History HEENT History: Reports: Other (See Below) Other HEENT History: has no teeth. Cardiovascular History: Reports: Afib Gastrointestinal History: Reports: GERD Genitourinary History: Reports: UTI, Recurrent [employer] History: Reports: Musculoskeletal History: Reports: Arthritis, Other (See Below) Other Musculoskeletal History: Unilateral osteoarthritis of L hip Neurological History: Reports: Other (See Below) Other Neuro History: dementia--pt resides in memory care facility Psychiatric History: Reports: Dementia Hematologic History: Reports: Anemia Other Hematologic History: Vitamin D deficiency - Past Surgical History HEENT Surgical History: Reports: Tonsillectomy GI Surgical History: Reports: Appendectomy, Cholecystectomy Social & Family History - Family History Family Medical History: Noncontributory - Tobacco Use Smoking Status *Q: Never Smoker Tobacco Use Comment: Pt lives in assisted living and no smoking allowed Second Hand Smoke Exposure: No - Caffeine Use Caffeine Use: Reports: Tea - Alcohol Use Days Per Week of Alcohol Use: 0 Number of Drinks Per Day: 0 Total Drinks Per Week: 0 - Recreational Drug Use Recreational Drug Use: No H&P Review of Systems - Review of Systems: Review Of Systems: Unable To Obtain Reason Not Obtained: Patient with altered mental status, worse than baseline Exam - Exam Exam: See Below - Vital Signs Vital Signs: Last Vital Signs Temp 98.2 F 06/12/19 08:07 Pulse 85 06/12/19 08:07 Resp 16 06/12/19 08:07 BP 101/50 L 06/12/19 08:07 Pulse Ox 96 06/12/19 08:07 Weight: 79.787 kg - Exam Skin Alteration Location (Drawings Not To Scale): 1 - Ecchymosis Physical Exam Comments:: General: Alert. No: Mild Distress HEENT: Conjunctiva Clear, EACs Clear, EOMI, Hearing Intact, PERRLA Neck: Supple, Trachea Midline Lungs: Clear to Auscultation, Normal Respiratory Effort Cardiovascular: Regular Rate, Regular Rhythm. No: Systolic Murmur, Diastolic Murmur, Rubs, Gallop/S3, Gallop/S4 GI/Abdominal Exam: Normal Bowel Sounds, Soft, Non-Tender, No Organomegaly Extremities: Other (pain in left hip) Skin: Ecchymosis - Patient Data Lab Results Last 24 hrs: Laboratory Results - last 24 hr 06/11/19 06/12/19 06/12/19 Range/Units 20:30 05:35 05:35 WBC 8.44 (3.98-10.04) K/mm3 RBC 3.10 L (3.98-5.22) M/mm3 Hgb 8.0 L D (11.2-15.7) gm/dl Hct 24.6 L (34.1-44.9) % MCV 79.4 (79.4-94.8) fl MCH 25.8 (25.6-32.2) pg MCHC 32.5 (32.2-35.5) g/dl RDW Std Deviation 47.0 H (36.4-46.3) fL Plt Count 233 D (182-369) K/mm3 MPV 9.8 (9.4-12.3) fl Neut % (Auto) 69.7 (34.0-71.1) % Lymph % (Auto) 18.1 L (19.3-51.7) % [place] % (Auto) 10.9 (4.7-12.5) % Eos % (Auto) 0.9 (0.7-5.8) Baso % (Auto) 0.2 (0.1-1.2) % Neut # (Auto) 5.87 (1.56-6.13) K/mm3 Lymph # (Auto) 1.53 (1.18-3.74) K/mm3 [place] # (Auto) 0.92 H (0.24-0.36) K/mm3 Eos # (Auto) 0.08 (0.04-0.36) K/mm3 Baso # (Auto) 0.02 (0.01-0.08) K/mm3 Manual Slide Review Normal smear Sodium 137 (136-145) mEq/L Potassium 3.9 (3.5-5.1) mEq/L Chloride 106 (98-107) mEq/L Carbon Dioxide 21 (21-32) mEq/L Anion Gap 13.9 (5-15) BUN 27 H (7-18) mg/dL Creatinine 1.1 H (0.55-1.02) mg/dL Est Cr Clr Drug Dosing 29.04 mL/min Estimated GFR (MDRD) 47 (>60) mL/min BUN/Creatinine Ratio 24.5 H (14-18) Glucose 96 (83-115) mg/dL Calcium 7.6 L (8.5-10.1) mg/dL Phosphorus 4.0 (2.6-4.7) mg/dL Magnesium 1.6 L (1.8-2.4) mg/dl Total Bilirubin 0.9 (0.2-1.0) mg/dL AST 21 (15-37) U/L ALT 26 (14-59) U/L Alkaline Phosphatase 77 (46-116) U/L Total Protein 4.9 L (6.4-8.2) g/dl Albumin 2.3 L (3.4-5.0) g/dl Globulin 2.6 gm/dL Albumin/Globulin Ratio 0.9 L (1-2) MRSA (PCR) Negative Result Diagrams: 06/12/19 05:35 06/12/19 05:35 Sepsis Event Note - Evaluation Sepsis Screening Result: No Definite Risk - Focused Exam Vital Signs: Vital Signs Temp Pulse Resp BP Pulse Ox 06/12/19 08:07 98.2 F 85 16 101/50 L 96 06/12/19 03:05 98.2 F 96 16 88/58 L 93 L Date Exam was Performed: 06/12/19 Time Exam was Performed: 13:58 - Problem List (1) Fall SNOMED Code(s): 7455252, 787672839 ICD Code: W19.XXXA - UNSPECIFIED FALL, INITIAL ENCOUNTER Status: Acute Current Visit: Yes (2) Femur fracture, left SNOMED Code(s): 06789523 ICD Code: S72.92XA - UNSP FRACTURE OF LEFT FEMUR, INIT ENCNTR FOR CLOSED FRACTURE Status: Acute Current Visit: Yes Qualifiers: Encounter type: initial encounter Femur location: distal, unspecified portion Fracture type: closed Fracture morphology: other fracture Qualified Code(s): S72.492A - Other fracture of lower end of left femur, initial encounter for closed fracture (3) Atrial fibrillation SNOMED Code(s): 12651301 ICD Code: I48.91 - UNSPECIFIED ATRIAL FIBRILLATION Status: Acute Current Visit: Yes (4) Vitamin D deficiency SNOMED Code(s): 27942598 ICD Code: E55.9 - VITAMIN D DEFICIENCY, UNSPECIFIED Status: Acute Current Visit: Yes (5) Dementia SNOMED Code(s): 88060746 ICD Code: F03.90 - UNSPECIFIED DEMENTIA WITHOUT BEHAVIORAL DISTURBANCE Status: Acute Current Visit: Yes (6) Chronic anticoagulation SNOMED Code(s): 073642460 ICD Code: Z79.01 - [facility] (CURRENT) USE OF ANTICOAGULANTS Status: Acute Current Visit: Yes (7) Hematoma SNOMED Code(s): 385571305 ICD Code: T14.8XXA - OTHER INJURY OF UNSPECIFIED BODY REGION, INITIAL ENCOUNTER Status: Acute Current Visit: Yes (8) Hiatal hernia 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 esophagitis SNOMED Code(s): 693864411 ICD Code: K44.9 - DIAPHRAGMATIC HERNIA WITHOUT OBSTRUCTION OR GANGRENE; K21.9 - GASTRO-ESOPHAGEAL REFLUX DISEASE WITHOUT ESOPHAGITIS Status: Acute Current Visit: Yes (9) Constipation SNOMED Code(s): 10386272 ICD Code: K59.00 - CONSTIPATION, UNSPECIFIED Status: Acute Current Visit : Yes Problem List Initiated/Reviewed/Updated: Yes Assessment/Plan Comment:: Femoral distal fracture 2/2 fall from own height Primary osteoarthritis of left hip Vitamin D deficiency Fall from own height this AM Fracture does not appear displaced Geriatric estimated risk probability for perioperative myocardial infarction or cardiac arrest 0.3% Estimated risk of adverse outcome with non-cardiac surgery, very low risk Estimate rate of myocardial infarction, pulmonary edema, ventricular fibrillation, cardiac arrest, or complete heart block 0.4% PLAN - Surgery today - Pain management Dementia Major depressive disorder Anxiety Can transfer, ambulate and bed mobility by himself Uses a 4 wheeled walker for ambulation Dress and personal hygiene as well as bathing with 1 assist Is continent as for toileting Home management with Sertraline, Mirtazapine PLAN - Continue home meds once PO Atrial fibrillation Chronic anticoagulation with Eliquis Large hematoma of right chest Rate controlled HR 88 on admission Home management with metoprolol and Eliquis Given 3 extra doses of double her prescribed dose last week She has a large ecchymotic lesion with hematoma on right chest that extends from axilla down to breast PLAN - Continue metoprolol after surgery - Monitor hematoma size and temperature, if worsening will et US Constipation Unknown last BM Home management with colace PLAN - Continue home colace once PO Hiatal hernia 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 esophagitis No signs of GI bleed Hb 10.7 PLAN - Continue Omeprazole PROPHYLAXIS: DVT- Hold Eliquis for now GI- Continue home omeprazole CODE STATUS: FULL CODE DISPOSITION: Patient will be admitted for surgery. Resident of [facility] [place], will need placement depending on PT/OT recommendations. No MPOA. PERIOPERATIVE RISK EVALUATION Geriatric estimated risk probability for perioperative myocardial infarction or cardiac arrest 0.3% Estimated risk of adverse outcome with non-cardiac surgery, very low risk Estimate rate of myocardial infarction, pulmonary edema, ventricular fibrillation, cardiac arrest, or complete heart block 0.4%
[2019-06-12] MEDS ORDERED: Lidocaine 1% 10 ML MDV SCH (14:00)
--- NOTE | 2019-06-12 14:08 | US ---
Left shoulder: Multiple real-time images of the left shoulder obtained. Fluid collection is seen within the left shoulder measuring 7.9 x 3.2 x 8.5 cm. Impression: 1. Fluid collection as noted above. Diagnostic code #3 This report was dictated in [place] Standard Time
--- NOTE | 2019-06-12 14:08 | CR ---
Left shoulder: Three views of the left shoulder were obtained. Comparison: No prior shoulder exam. Severe degenerative change is noted within the left shoulder with findings suspicious for chronic rotator cuff tear. Bony structures are osteoporotic. No acute bony abnormality is seen. Soft tissue swelling is seen within the left shoulder. Impression: 1. Severe degenerative change within the left glenohumeral joint with findings suspicious for chronic rotator cuff tear. 2. Soft tissue swelling within the left shoulder which correlates to the clinical history. Diagnostic code #3 This report was dictated in [place] Standard Time
--- NOTE | 2019-06-12 15:06 | PCM.PN ---
- General Info Date of Service: 06/12/19 Subjective Update: Feeling ok Tolerating diet Moving to and from chair Pain controlled - Patient Data Vitals - Most Recent: Last Vital Signs Temp 98.2 F 06/12/19 08:07 Pulse 85 06/12/19 08:07 Resp 16 06/12/19 08:07 BP 101/50 L 06/12/19 08:07 Pulse Ox 96 06/12/19 08:07 Weight - Most Recent: 79.787 kg - Exam General: Alert, Oriented, Cooperative, No Acute Distress HEENT: Pupils Equal, Pupils Reactive, Mucous Membr. Moist/[place] Neck: Supple, Trachea Midline, No JVD Lungs: Clear to Auscultation, Normal Respiratory Effort. No: Crackles, Rales, Rub, Stridor, Wheezing Cardiovascular: Regular Rate, Regular Rhythm. No: Murmurs, Gallops, Rubs GI/Abdominal Exam: Normal Bowel Sounds, Soft, Non-Tender, No Organomegaly Extremities: Normal Capillary Refill, Limited Range of Motion Neurological: No New Focal Deficit Psy/Mental Status: Alert, Normal Affect, Normal Mood Sepsis Event Note - Evaluation Sepsis Screening Result: No Definite Risk - Focused Exam Vital Signs: Vital Signs Temp Pulse Resp BP Pulse Ox 06/12/19 08:07 98.2 F 85 16 101/50 L 96 06/12/19 03:05 98.2 F 96 16 88/58 L 93 L Date Exam was Performed: 06/12/19 Time Exam was Performed: 15:07 - Problem List & Annotations (1) Fall SNOMED Code(s): 4028313, 180592158 Code(s): W19.XXXA - UNSPECIFIED FALL, INITIAL ENCOUNTER Status: Acute Current Visit: Yes (2) Femur fracture, left SNOMED Code(s): 17604276 Code(s): S72.92XA - UNSP FRACTURE OF LEFT FEMUR, INIT ENCNTR FOR CLOSED FRACTURE Status: Acute Current Visit: Yes Qualifiers: Encounter type: initial encounter Femur location: distal, unspecified portion Fracture type: closed Fracture morphology: other fracture Qualified Code(s): S72.492A - Other fracture of lower end of left femur, initial encounter for closed fracture (3) Atrial fibrillation SNOMED Code(s): 62872106 Code(s): I48.91 - UNSPECIFIED ATRIAL FIBRILLATION Status: Acute Current Visit: Yes (4) Vitamin D deficiency SNOMED Code(s): 60708418 Code(s): E55.9 - VITAMIN D DEFICIENCY, UNSPECIFIED Status: Acute Current Visit: Yes (5) Dementia SNOMED Code(s): 51937983 Code(s): F03.90 - UNSPECIFIED DEMENTIA WITHOUT BEHAVIORAL DISTURBANCE Status: Acute Current Visit: Yes (6) Chronic anticoagulation SNOMED Code(s): 490577295 Code(s): Z79.01 - PRISON (CURRENT) USE OF ANTICOAGULANTS Status: Acute Current Visit: Yes (7) Hematoma SNOMED Code(s): 817067401 Code(s): T14.8XXA - OTHER INJURY OF UNSPECIFIED BODY REGION, INITIAL ENCOUNTER Status: Acute Current Visit: Yes (8) Hiatal hernia 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 esophagitis SNOMED Code(s): 140644926 Code(s): K44.9 - DIAPHRAGMATIC HERNIA WITHOUT OBSTRUCTION OR GANGRENE; K21.9 - GASTRO-ESOPHAGEAL REFLUX DISEASE WITHOUT ESOPHAGITIS Status: Acute Current Visit: Yes (9) Constipation SNOMED Code(s): 80327284 Code(s): K59.00 - CONSTIPATION, UNSPECIFIED Status: Acute Current Visit: Yes - Problem List Review Problem List Initiated/Reviewed/Updated: Yes - Plan Plan:: Femoral distal fracture 2/2 fall from own height s/p ORIF left femur 06/11/19 Post-operative anemia Primary osteoarthritis of left hip Vitamin D deficiency Fall from own height this AM Fracture does not appear displaced Pain control with [place] 5, none requested yet Hb on admission 10.7 now 8 PLAN - PT/OT evaluation and recommendations - Pain management - Repeat CBC in AM Dementia Major depressive disorder Anxiety Can transfer, ambulate and bed mobility by himself Uses a 4 wheeled walker for ambulation Dress and personal hygiene as well as bathing with 1 assist Is continent as for toileting Home management with Sertraline, Mirtazapine PLAN - Continue home meds Atrial fibrillation Chronic anticoagulation with Eliquis Large hematoma of right chest Rate controlled HR trend 76-91x' Home management with metoprolol and Eliquis Given 3 extra doses of double her prescribed dose last week She has a large ecchymotic lesion with hematoma on right chest that extends from axilla down to breast PLAN - Continue metoprolol after surgery - Monitor hematoma size and temperature, if worsening will get US - Hold Eliquis Constipation Last BM 06/10 Home management with colace PLAN - Continue home colace once PO Hiatal hernia 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 esophagitis No signs of GI bleed Hb 10.7 PLAN - Continue Omeprazole PROPHYLAXIS: DVT- TEDs GI- Continue home omeprazole CODE STATUS: FULL CODE DISPOSITION: Admitted for surgery on 06/11, no post operative complications so far. Pending PT/OT evaluation and recommendations. Resident of [facility], will need placement depending on PT/OT recommendations. No MPOA.
--- NOTE | 2019-06-12 15:23 | PCM.PRNOTE ---
- Free Text/Narrative Note: Left Shoulder Arthrocentesis Date: 06/12/19 Time: 15:00 Consent for Arthrocentesis: Risks and benefits discussed with patient and verbal consent obtained Pre-Procedure Diagnosis: acute left shoulder swelling with concern for hemarthrosis Post-Procedure Diagnosis: Hemarthrosis Anesthesia: 5 cc of Lidocaine The anterior left shoulder was prepped in the usual sterile fashion and the overlying skin cleaned using povidone iodine. Local anesthesia achieved using 5 ml of Lidocaine 1% without epinephrine was injected into the joint using posterior approach. Lidocaine then introduced into the joint space. 200mL of bloody colored was fluid removed. Samples were sent to the lab for analysis. The patient tolerated the procedure well without complications. Estimated Blood Loss: minimal
[2019-06-12] MEDS ORDERED: Magnesium Sulfate/Water 4 GM in Premix Bag 1 BAG IV SCH (21:00)
[2019-06-12] MEDS ORDERED: Magnesium Sulfate/Water 4 GM in Premix Bag 1 BAG IV ONE (21:15)
[2019-06-12] MEDS: Mirtazapine 15 MG Tab PO SCH (21:49)
[2019-06-13] MEDS: Lactated Ringers 1,000 ML IV SCH ×2 (00:33→21:18)
[2019-06-13] MEDS: Acetaminophen/HYDROcodone 325-5 MG Tab PO PRN ×3 (04:26→18:40)
[2019-06-13] MEDS ORDERED: Sodium Chloride 0.9% 250 ML IV SCH (06:30)
[2019-06-13] MEDS: Ferrous Sulfate 324 MG Tab.EC PO SCH (09:51)
[2019-06-13] MEDS: Cholecalciferol (Vitamin D3) 25 MCG Tab PO SCH (09:51)
[2019-06-13] MEDS: Sertraline 25 MG Tab PO SCH (09:52)
[2019-06-13] MEDS ORDERED: hydrALAZINE 20 MG/ML SDV IVPUSH PRN (10:01)
--- NOTE | 2019-06-13 14:36 | PCM.PN ---
- General Info Date of Service: 06/13/19 Subjective Update: Tolerating diet, eating 100% of soft diet 1L NC Slept ok - Patient Data Vitals - Most Recent: Last Vital Signs Temp 98.5 F 06/13/19 13:06 Pulse 91 06/13/19 13:06 Resp 21 H 06/13/19 13:06 BP 126/72 06/13/19 13:06 Pulse Ox 92 L 06/13/19 13:06 Weight - Most Recent: 82.508 kg - Exam General: Alert, Cooperative, No Acute Distress HEENT: Pupils Equal, Pupils Reactive, Mucous Membr. Moist/[place] Neck: Supple, Trachea Midline, No JVD Lungs: Decreased Breath Sounds. No: Rales, Rhonchi, Wheezing Cardiovascular: Regular Rate, Regular Rhythm, No Murmurs GI/Abdominal Exam: Normal Bowel Sounds, Soft, Non-Tender Back Exam: Normal Inspection Extremities: Normal Capillary Refill, Pedal Edema Neurological: No New Focal Deficit Sepsis Event Note - Evaluation Sepsis Screening Result: No Definite Risk - Focused Exam Vital Signs: Vital Signs Temp Pulse Pulse Resp BP BP Pulse Ox 06/13/19 13:06 98.5 F 91 21 H 126/72 92 L 06/13/19 12:52 98.0 F 93 20 114/76 91 L 06/13/19 12:40 98.0 F 93 20 114/76 91 L 06/13/19 11:45 96.4 F 89 20 129/65 94 L 06/13/19 09:41 98.8 F 84 20 128/76 89 L 06/13/19 09:38 98.8 F 82 20 128/76 92 L 06/13/19 09:24 99.2 F 79 24 H 109/88 93 L 06/13/19 09:16 99.1 F 79 24 H 109/88 93 L 06/13/19 08:37 06/13/19 07:56 98.4 F 86 20 108/49 L 94 L 06/13/19 03:11 99.1 F 86 16 108/59 L 96 Pulse Ox 06/13/19 13:06 06/13/19 12:52 06/13/19 12:40 06/13/19 11:45 06/13/19 09:41 06/13/19 09:38 06/13/19 09:24 06/13/19 09:16 06/13/19 08:37 95 06/13/19 07:56 06/13/19 03:11 Date Exam was Performed: 06/13/19 Time Exam was Performed: 19:45 - Problem List & Annotations (1) Fall SNOMED Code(s): 4057564, 066392092 Code(s): W19.XXXA - UNSPECIFIED FALL, INITIAL ENCOUNTER Status: Acute Current Visit: Yes (2) Femur fracture, left SNOMED Code(s): 25366601 Code(s): S72.92XA - UNSP FRACTURE OF LEFT FEMUR, INIT ENCNTR FOR CLOSED FRACTURE Status: Acute Current Visit: Yes Qualifiers: Encounter type: initial encounter Femur location: distal, unspecified portion Fracture type: closed Fracture morphology: other fracture Qualified Code(s): S72.492A - Other fracture of lower end of left femur, initial encounter for closed fracture (3) Atrial fibrillation SNOMED Code(s): 87929970 Code(s): I48.91 - UNSPECIFIED ATRIAL FIBRILLATION Status: Acute Current Visit: Yes (4) Vitamin D deficiency SNOMED Code(s): 86745285 Code(s): E55.9 - VITAMIN D DEFICIENCY, UNSPECIFIED Status: Acute Current Visit: Yes (5) Dementia SNOMED Code(s): 36018255 Code(s): F03.90 - UNSPECIFIED DEMENTIA WITHOUT BEHAVIORAL DISTURBANCE Status: Acute Current Visit: Yes (6) Chronic anticoagulation SNOMED Code(s): 711875178 Code(s): Z79.01 - SUPERVISOR COMMUNICATIONS AND SIGNALS (CURRENT) USE OF ANTICOAGULANTS Status: Acute Current Visit: Yes (7) Hematoma SNOMED Code(s): 827277053 Code(s): T14.8XXA - OTHER INJURY OF UNSPECIFIED BODY REGION, INITIAL ENCOUNTER Status: Acute Current Visit: Yes (8) Hiatal hernia 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 esophagitis SNOMED Code(s): 075558137 Code(s): K44.9 - DIAPHRAGMATIC HERNIA WITHOUT OBSTRUCTION OR GANGRENE; K21.9 - GASTRO-ESOPHAGEAL REFLUX DISEASE WITHOUT ESOPHAGITIS Status: Acute Current Visit: Yes (9) Constipation SNOMED Code(s): 09198373 Code(s): K59.00 - CONSTIPATION, UNSPECIFIED Status: Acute Current Visit: Yes (10) Postoperative anemia due to acute blood loss SNOMED Code(s): 98461222859656807 Code(s): D62 - ACUTE POSTHEMORRHAGIC ANEMIA Status: Acute Current Visit: Yes - Problem List Review Problem List Initiated/Reviewed/Updated: Yes - Plan Plan:: Femoral distal fracture 2/2 fall from own height s/p ORIF left femur 06/11/19 Post-operative anemia Primary osteoarthritis of left hip Vitamin D deficiency Fall from own height this AM Fracture does not appear displaced Pain control with [place] 5, none requested yet Hb on admission 10.7, 7 today PLAN - PT/OT evaluation and recommendations - Pain management - Transfuse 2u PRBC - Recheck Hb Dementia Major depressive disorder Anxiety Can transfer, ambulate and bed mobility by himself Uses a 4 wheeled walker for ambulation Dress and personal hygiene as well as bathing with 1 assist Is continent as for toileting Home management with Sertraline, Mirtazapine PLAN - Continue home meds Atrial fibrillation Chronic anticoagulation with Eliquis Large hematoma of right chest Rate controlled Home management with metoprolol and Eliquis Given 3 extra doses of double her prescribed dose last week She has a large ecchymotic lesion with hematoma on right chest that extends from axilla down to breast PLAN - Continue metoprolol after surgery - Monitor hematoma size and temperature, if worsening will get US - Hold Eliquis Constipation Last BM 06/10 Home management with colace PLAN - Continue home colace once PO Hiatal hernia 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 esophagitis No signs of GI bleed Hb 10.7 PLAN - Continue Omeprazole PROPHYLAXIS: DVT- TEDs GI- Continue home omeprazole CODE STATUS: FULL CODE DISPOSITION: Admitted for surgery on 06/11, no post operative complications so far. Pending PT/OT evaluation and recommendations. Pivot with 2 assist today Resident of [facility], will need placement depending on PT/OT recommendations. Pending cognitive evaluation No MPOA.
[2019-06-13] MEDS ORDERED: Furosemide 20 MG/2 ML VIAL IVPUSH ONE (15:15)
[2019-06-13] MEDS: amLODIPine 10 MG Tab PO SCH (21:14)
[2019-06-13] MEDS: Mirtazapine 15 MG Tab PO SCH (21:15)
[2019-06-14] MEDS: Cholecalciferol (Vitamin D3) 25 MCG Tab PO SCH (09:08)
[2019-06-14] MEDS: Psyllium Husk Powder Sugar Free 3.4 GM Packet PO SCH (09:08)
[2019-06-14] MEDS: Sertraline 25 MG Tab PO SCH (09:08)
[2019-06-14] MEDS: Lactated Ringers 1,000 ML IV SCH (10:06)
[2019-06-14] MEDS: Acetaminophen/HYDROcodone 325-5 MG Tab PO PRN ×2 (11:13→20:12)
--- NOTE | 2019-06-14 18:05 | PCM.PN ---
- General Info Date of Service: 06/14/19 Subjective Update: Slept ok Tolerating diet 2 person assist - Patient Data Vitals - Most Recent: Last Vital Signs Temp 98.6 F 06/14/19 11:13 Pulse 91 06/14/19 11:13 Resp 20 06/14/19 08:57 BP 113/70 06/14/19 11:13 Pulse Ox 95 06/14/19 11:13 Weight - Most Recent: 84.64 kg - Exam Physical Findings Comments:: General: Alert, Cooperative, No Acute Distress HEENT: Pupils Equal, Pupils Reactive, Mucous Membr. Moist/[place] Neck: Supple, Trachea Midline, No JVD Lungs: Decreased Breath Sounds. No: Rales, Rhonchi, Wheezing Cardiovascular: Regular Rate, Regular Rhythm, No Murmurs GI/Abdominal Exam: Normal Bowel Sounds, Soft, Non-Tender Back Exam: Normal Inspection Extremities: Normal Capillary Refill, Pedal Edema Neurological: No New Focal Deficit Sepsis Event Note - Evaluation Sepsis Screening Result: No Definite Risk - Focused Exam Vital Signs: Vital Signs Temp Pulse Resp BP Pulse Ox 06/14/19 11:13 98.6 F 91 113/70 95 06/14/19 08:57 99.0 F 100 20 100/66 90 L Date Exam was Performed: 06/14/19 Time Exam was Performed: 20:06 - Problem List & Annotations (1) Fall SNOMED Code(s): 2148191, 328368067 Code(s): W19.XXXA - UNSPECIFIED FALL, INITIAL ENCOUNTER Status: Acute Current Visit: Yes (2) Femur fracture, left SNOMED Code(s): 57364742 Code(s): S72.92XA - UNSP FRACTURE OF LEFT FEMUR, INIT ENCNTR FOR CLOSED FRACTURE Status: Acute Current Visit: Yes Qualifiers: Encounter type: initial encounter Femur location: distal, unspecified portion Fracture type: closed Fracture morphology: other fracture Qualified Code(s): S72.492A - Other fracture of lower end of left femur, initial encounter for closed fracture (3) Atrial fibrillation SNOMED Code(s): 87555926 Code(s): I48.91 - UNSPECIFIED ATRIAL FIBRILLATION Status: Acute Current Visit: Yes (4) Vitamin D deficiency SNOMED Code(s): 57151070 Code(s): E55.9 - VITAMIN D DEFICIENCY, UNSPECIFIED Status: Acute Current Visit: Yes (5) Dementia SNOMED Code(s): 09451787 Code(s): F03.90 - UNSPECIFIED DEMENTIA WITHOUT BEHAVIORAL DISTURBANCE Status: Acute Current Visit: Yes (6) Chronic anticoagulation SNOMED Code(s): 914023200 Code(s): Z79.01 - CERTIFIED ACTIVITIES DIRECTOR (CURRENT) USE OF ANTICOAGULANTS Status: Acute Current Visit: Yes (7) Hematoma SNOMED Code(s): 301183203 Code(s): T14.8XXA - OTHER INJURY OF UNSPECIFIED BODY REGION, INITIAL ENCOUNTER Status: Acute Current Visit: Yes (8) Hiatal hernia 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 esophagitis SNOMED Code(s): 324194819 Code(s): K44.9 - DIAPHRAGMATIC HERNIA WITHOUT OBSTRUCTION OR GANGRENE; K21.9 - GASTRO-ESOPHAGEAL REFLUX DISEASE WITHOUT ESOPHAGITIS Status: Acute Current Visit: Yes (9) Constipation SNOMED Code(s): 58160184 Code(s): K59.00 - CONSTIPATION, UNSPECIFIED Status: Acute Current Visit: Yes (10) Postoperative anemia due to acute blood loss SNOMED Code(s): 50600382481462546 Code(s): D62 - ACUTE POSTHEMORRHAGIC ANEMIA Status: Acute Current Visit: Yes - Problem List Review Problem List Initiated/Reviewed/Updated: Yes - Plan Plan:: Femoral distal fracture 2/2 fall from own height s/p ORIF left femur 06/11/19 Post-operative anemia Primary osteoarthritis of left hip Vitamin D deficiency Fall from own height this AM Fracture does not appear displaced Pain control with [place] 5, none requested yet Hb dropped to 7, transfused 2u 06/13 PLAN - PT/OT evaluation and recommendations - Pain management - Recheck Hb Dementia Major depressive disorder Anxiety Can transfer, ambulate and bed mobility by himself Uses a 4 wheeled walker for ambulation Dress and personal hygiene as well as bathing with 1 assist [place] as for toileting Home management with Sertraline, Mirtazapine PLAN - Continue home meds Atrial fibrillation Chronic anticoagulation with Eliquis Large hematoma of right chest Rate controlled Home management with metoprolol and Eliquis Given 3 extra doses of double her prescribed dose last week She has a large ecchymotic lesion with hematoma on right chest that extends from axilla down to breast PLAN - Continue metoprolol after surgery - Monitor hematoma size and temperature, if worsening will get US - Hold Eliquis Constipation Last BM 06/10 Home management with colace PLAN - Continue home colace once PO Hiatal hernia 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 esophagitis No signs of GI bleed Hb 10.7 PLAN - Continue Omeprazole PROPHYLAXIS: DVT- TEDs GI- Continue home omeprazole CODE STATUS: FULL CODE DISPOSITION: Admitted for surgery on 06/11, no post operative complications so far. Pending PT/OT evaluation and recommendations. Pivot with 2 assist today Resident of [facility], will need placement depending on PT/OT recommendations. Pending cognitive evaluation No MPOA.
[2019-06-14] MEDS: Mirtazapine 15 MG Tab PO SCH (20:12)
[2019-06-14] MEDS: amLODIPine 10 MG Tab PO SCH (20:12)
[2019-06-15] MEDS: Acetaminophen/HYDROcodone 325-5 MG Tab PO PRN ×2 (05:23→13:15)
[2019-06-15] MEDS: Cholecalciferol (Vitamin D3) 25 MCG Tab PO SCH (10:12)
[2019-06-15] MEDS: Sertraline 25 MG Tab PO SCH (10:12)
[2019-06-15] MEDS: Metoprolol Succinate 25 MG Tab.ER PO SCH (10:13)
[2019-06-15] MEDS: Psyllium Husk Powder Sugar Free 3.4 GM Packet PO SCH (10:20)
--- NOTE | 2019-06-15 16:13 | PCM.PN ---
- General Info Date of Service: 06/15/19 Subjective Update: Tolerating diet No BM yet - Patient Data Vitals - Most Recent: Last Vital Signs Temp 98.1 F 06/15/19 05:23 Pulse 85 06/15/19 10:13 Resp 16 06/15/19 05:23 BP 111/68 06/15/19 10:13 Pulse Ox 94 L 06/15/19 05:23 Weight - Most Recent: 84.912 kg - Exam General: Alert, Oriented, Cooperative, No Acute Distress HEENT: Pupils Equal, Pupils Reactive, Mucous Membr. Moist/[place] Neck: Supple, Trachea Midline, No JVD, No Thyromegaly Lungs: Clear to Auscultation, Decreased Breath Sounds. No: Crackles, Rales, Rhonchi, Rub, Wheezing Cardiovascular: Regular Rate, Regular Rhythm, No Murmurs GI/Abdominal Exam: Normal Bowel Sounds, Soft, Non-Tender (Female) Exam: Normal External Exam, Normal Speculum Exam Back Exam: Normal Inspection Extremities: Normal Capillary Refill, Pedal Edema Skin: Ecchymosis Wound/Incisions: Healing Well Neurological: No New Focal Deficit Psy/Mental Status: Alert, Normal Affect, Normal Mood Sepsis Event Note - Evaluation Sepsis Screening Result: No Definite Risk - Focused Exam Vital Signs: Vital Signs Temp Pulse Resp BP Pulse Ox 06/15/19 10:13 85 111/68 06/15/19 05:24 100/81 06/15/19 05:23 98.1 F 100 16 98/60 94 L Date Exam was Performed: 06/16/19 Time Exam was Performed: 08:56 - Problem List & Annotations (1) Fall SNOMED Code(s): 3404293, 145117433 Code(s): W19.XXXA - UNSPECIFIED FALL, INITIAL ENCOUNTER Status: Acute Current Visit: Yes (2) Femur fracture, left SNOMED Code(s): 97484476 Code(s): S72.92XA - UNSP FRACTURE OF LEFT FEMUR, INIT ENCNTR FOR CLOSED FRACTURE Status: Acute Current Visit: Yes Qualifiers: Encounter type: initial encounter Femur location: distal, unspecified portion Fracture type: closed Fracture morphology: other fracture Qualified Code(s): S72.492A - Other fracture of lower end of left femur, initial encounter for closed fracture (3) Atrial fibrillation SNOMED Code(s): 23673676 Code(s): I48.91 - UNSPECIFIED ATRIAL FIBRILLATION Status: Acute Current Visit: Yes (4) Vitamin D deficiency SNOMED Code(s): 09341044 Code(s): E55.9 - VITAMIN D DEFICIENCY, UNSPECIFIED Status: Acute Current Visit: Yes (5) Dementia SNOMED Code(s): 18999945 Code(s): F03.90 - UNSPECIFIED DEMENTIA WITHOUT BEHAVIORAL DISTURBANCE Status: Acute Current Visit: Yes (6) Chronic anticoagulation SNOMED Code(s): 199250939 Code(s): Z79.01 - DIRECTOR OF RADIO SERVICES (CURRENT) USE OF ANTICOAGULANTS Status: Acute Current Visit: Yes (7) Hematoma SNOMED Code(s): 599665905 Code(s): T14.8XXA - OTHER INJURY OF UNSPECIFIED BODY REGION, INITIAL ENCOUNTER Status: Acute Current Visit: Yes (8) Hiatal hernia 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 esophagitis SNOMED Code(s): 990822865 Code(s): K44.9 - DIAPHRAGMATIC HERNIA WITHOUT OBSTRUCTION OR GANGRENE; K21.9 - GASTRO-ESOPHAGEAL REFLUX DISEASE WITHOUT ESOPHAGITIS Status: Acute Current Visit: Yes (9) Constipation SNOMED Code(s): 27730918 Code(s): K59.00 - CONSTIPATION, UNSPECIFIED Status: Acute Current Visit: Yes (10) Postoperative anemia due to acute blood loss SNOMED Code(s): 05151657220046192 Code(s): D62 - ACUTE POSTHEMORRHAGIC ANEMIA Status: Acute Current Visit: Yes - Problem List Review Problem List Initiated/Reviewed/Updated: Yes - Plan Plan:: Femoral distal fracture 2/2 fall from own height s/p ORIF left femur 06/11/19 Post-operative anemia Primary osteoarthritis of left hip Vitamin D deficiency Fall from own height this AM Fracture does not appear displaced Pain control with [place] 5, none requested yet Hb dropped to 7, transfused 2u 06/13--> repeat Hb 9.7 PLAN - PT/OT evaluation and recommendations - Pain management Dementia Major depressive disorder Anxiety Can transfer, ambulate and bed mobility by himself Uses a 4 wheeled walker for ambulation Dress and personal hygiene as well as bathing with 1 assist [place] as for toileting Home management with Sertraline, Mirtazapine PLAN - Continue home meds - Let me sleep protocol Atrial fibrillation Chronic anticoagulation with Eliquis Large hematoma of right chest Rate controlled Home management with metoprolol and Eliquis Given 3 extra doses of double her prescribed dose last week She has a large ecchymotic lesion with hematoma on right chest that extends from axilla down to breast PLAN - Continue metoprolol after surgery - Monitor hematoma size and temperature, if worsening will get US - Hold Eliquis - Start aspirin Constipation Last BM 06/10 Home management with colace PLAN - Continue home colace - Lactulose q6h until BM Hiatal hernia 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 esophagitis No signs of GI bleed Hb 9.7 PLAN - Continue Omeprazole PROPHYLAXIS: DVT- TEDs GI- Continue home omeprazole CODE STATUS: FULL CODE DISPOSITION: Admitted for surgery on 06/11, no post operative complications so far. Pending PT/OT evaluation and recommendations. Pivot with 2 assist today Resident of [facility], will need placement depending on PT/OT recommendations. No MPOA.
[2019-06-15] MEDS: Lactulose Soln 10 GM/15 ML 30 ML UD Cup PO SCH ×2 (17:21→20:31)
[2019-06-15] MEDS: Acetaminophen/Codeine 300-30 MG Tab PO PRN (19:12)
[2019-06-15] MEDS: amLODIPine 10 MG Tab PO SCH (20:20)
[2019-06-15] MEDS: Mirtazapine 15 MG Tab PO SCH (20:20)
[2019-06-16] MEDS: Lactulose Soln 10 GM/15 ML 30 ML UD Cup PO SCH ×2 (03:46→08:51)
[2019-06-16] MEDS: Acetaminophen/Codeine 300-30 MG Tab PO PRN ×2 (03:46→13:00)
[2019-06-16] MEDS: Sertraline 25 MG Tab PO SCH (08:47)
[2019-06-16] MEDS: Ferrous Sulfate 324 MG Tab.EC PO SCH (08:49)
[2019-06-16] MEDS: Cholecalciferol (Vitamin D3) 25 MCG Tab PO SCH (08:49)
[2019-06-16] MEDS: Metoprolol Succinate 25 MG Tab.ER PO SCH (08:49)
[2019-06-16] MEDS: Psyllium Husk Powder Sugar Free 3.4 GM Packet PO SCH (08:51)
--- NOTE | 2019-06-16 11:39 | PCM.DCSUM1 ---
Discharge Summary - Hospital Course HPI Initial Comments: Patient fell in the restroom this morning around 9:30AM. Fall was not witnessed but they deny any LOC, loss of continence (bowel or urinary), head trauma, chest pain or any other complaints. Patient complained of pain immediately after fall for which she was brought to the ED by [facility] staff Diagnosis: Stroke: No - Discharge Data Discharge Date: 06/16/19 Discharge Disposition: DC/Tfer to Medicaid Nur [facility] Condition: Good - Referral to Home Health Primary Care Physician: Anthony Dean MD - Discharge Diagnosis/Problem(s) (1) Fall SNOMED Code(s): 5993218, 269445895 ICD Code: W19.XXXA - UNSPECIFIED FALL, INITIAL ENCOUNTER Status: Acute (2) Femur fracture, left SNOMED Code(s): 48768578 ICD Code: S72.92XA - UNSP FRACTURE OF LEFT FEMUR, INIT ENCNTR FOR CLOSED FRACTURE Status: Acute Qualifiers: Encounter type: initial encounter Femur location: distal, unspecified portion Fracture type: closed Fracture morphology: other fracture Qualified Code(s): S72.492A - Other fracture of lower end of left femur, initial encounter for closed fracture (3) Atrial fibrillation SNOMED Code(s): 35121443 ICD Code: I48.91 - UNSPECIFIED ATRIAL FIBRILLATION Status: Acute (4) Vitamin D deficiency SNOMED Code(s): 45284297 ICD Code: E55.9 - VITAMIN D DEFICIENCY, UNSPECIFIED Status: Acute (5) Dementia SNOMED Code(s): 27912996 ICD Code: F03.90 - UNSPECIFIED DEMENTIA WITHOUT BEHAVIORAL DISTURBANCE Status: Acute (6) Chronic anticoagulation SNOMED Code(s): 379047517 ICD Code: Z79.01 - GROUP HOME (CURRENT) USE OF ANTICOAGULANTS Status: Acute (7) Hematoma SNOMED Code(s): 510068942 ICD Code: T14.8XXA - OTHER INJURY OF UNSPECIFIED BODY REGION, INITIAL ENCOUNTER Status: Acute (8) Hiatal hernia 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 esophagitis SNOMED Code(s): 914350793 ICD Code: K44.9 - DIAPHRAGMATIC HERNIA WITHOUT OBSTRUCTION OR GANGRENE; K21.9 - GASTRO-ESOPHAGEAL REFLUX DISEASE WITHOUT ESOPHAGITIS Status: Acute (9) Constipation SNOMED Code(s): 78045971 ICD Code: K59.00 - CONSTIPATION, UNSPECIFIED Status: Acute (10) Postoperative anemia due to acute blood loss SNOMED Code(s): 50138569321360476 ICD Code: D62 - ACUTE POSTHEMORRHAGIC ANEMIA Status: Acute - Patient Summary/Data Consults: Consultations 06/11/19 12:30 Consult to Physician [CONS] Stat 06/11/19 19:35 OT Evaluation and Treatment [CONS] Routine PT Evaluation and Treatment [CONS] Routine 06/12/19 17:23 Consult to Speech Language Pathology [ELECTROMEDICAL EQUIPMENT REPAIRER Evaluation and Treatment] [CONS] Routine Hospital Course: Admitted and taken to [facility] by Dr. Michelle on day of admission Started working with physical therapy and occupational therapy who recommended SNF placement On 06/12 patient developed spontaneous hemarthrosis of left shoulder which requires arthrocentesis with drainage of 200ml or serosanguineous fluid, negative for infection or crystals Eliquis on hold since admission due to surgery and large hematoma of right chest unrelated to fall on day of admission Required [place] for pain control prior to therapy She was accepted at [facility], discharged on 06/16 - Patient Instructions Diet: Usual Diet as Tolerated Activity: As Tolerated - Discharge Plan *PRESCRIPTION DRUG MONITORING PROGRAM REVIEWED*: No *COPY OF PRESCRIPTION DRUG MONITORING REPORT IN PATIENT MURIEL: No Prescriptions/Med Rec: Lactulose 10 gm PO Q12HR PRN #10 packet PRN Reason: Constipation amLODIPine Besylate [Amlodipine Besylate] 10 mg PO DAILY #30 tablet Aspirin 81 mg PO BEDTIME #30 tab.chew Hydrocodone/Acetaminophen [[place] 5-325 Tablet] 1 each PO Q8H PRN #15 tablet PRN Reason: Pain Metoprolol Tartrate 12.5 mg PO DAILY #15 tablet Sennosides/Docusate Sodium [Senna Plus 8.6-50 mg Softgel] 1 each PO BID #14 capsule Home Medications: Home Meds Celecoxib 200 mg PO DAILY 06/11/19 [History] Cholecalciferol (Vitamin D3) [Vitamin D3] 1,000 unit PO DAILY 06/11/19 [History] Ferrous Sulfate 325 mg PO MOWEFR 06/11/19 [History] Menthol [Biofreeze] 1 applic TOP TID PRN 06/11/19 [History] Mirtazapine 7.5 mg PO BEDTIME 06/11/19 [History] Sertraline [Zoloft] 75 mg PO DAILY 06/11/19 [History] bisacodyL [Dulcolax] 5 mg PO DAILY PRN 06/11/19 [History] Aspirin 81 mg PO BEDTIME #30 tab.chew 06/16/19 [Rx] Hydrocodone/Acetaminophen [[place] 5-325 Tablet] 1 each PO Q8H PRN #15 tablet [Rx] Lactulose 10 gm PO Q12HR PRN #10 packet 06/16/19 [Rx] Metoprolol Tartrate 12.5 mg PO DAILY #15 tablet 06/16/19 [Rx] Sennosides/Docusate Sodium [Senna Plus 8.6-50 mg Softgel] 1 each PO BID #14 capsule 06/16/19 [Rx] amLODIPine Besylate [Amlodipine Besylate] 10 mg PO DAILY #30 tablet 06/16/19 [Rx ] Patient Handouts: Femoral Shaft Fracture, Aspirin, ASA oral tablets Referrals: Lilliam Story PA-C [Physician Hardware Design Engineer] - (Follow-up with DOMINIK Jones on Sunday, 2018 at 10:15am.) Anthony Dean MD [Primary Care Provider] - 06/20/19 4:30 pm (please follow up with Dr. Dean on 06/20/19 at 4:30 P.M.) - Discharge Summary/Plan Comment DC Time >30 min.: Yes (Logistics of discahrge transfer) - General Info Date of Service: 06/16/19 Subjective Update: Feeling ok Tolerating diet Pivot with assistance Slept ok - Patient Data Vitals - Most Recent: Last Vital Signs Temp 98.9 F 06/16/19 11:23 Pulse 97 06/16/19 11:05 Resp 20 06/16/19 11:05 BP 125/76 06/16/19 11:05 Pulse Ox 92 L 06/16/19 11:05 Weight - Most Recent: 84.912 kg - Exam Physical Findings Comments:: General: Alert, Oriented, Cooperative, No Acute Distress HEENT: Pupils Equal, Pupils Reactive, Mucous Membr. Moist/[place] Neck: Supple, Trachea Midline, No JVD, No Thyromegaly Lungs: Clear to Auscultation, Decreased Breath Sounds. No: Crackles, Rales, Rhonchi, Rub, Wheezing Cardiovascular: Regular Rate, Regular Rhythm, No Murmurs GI/Abdominal Exam: Normal Bowel Sounds, Soft, Non-Tender (Female) Exam: Normal External Exam, Normal Speculum Exam Back Exam: Normal Inspection Extremities: Normal Capillary Refill, Pedal Edema Skin: Ecchymosis with interval improvement Wound/Incisions: Healing Well Neurological: No New Focal Deficit Psy/Mental Status: Alert, Normal Affect, Normal Mood
--- NOTE | 2019-06-17 16:36 | PCM.OPNOTE ---
- General Post-Op/Procedure Note Date of Surgery/Procedure: 06/11/19 Operative Procedure(s): open reduction internal fixation of left distal femur fracture Pre Op Diagnosis: left distal femoral supracondylar fracture Post-Op Diagnosis: Same Anesthesia Technique: General LMA, Local Primary Surgeon: Tee Michelle Anesthesia Provider: David Lucero Kiln Drawer: Lilliam Story EBL in mLs: 150 Complications: None Condition: Good
--- NOTE | 2019-06-17 16:54 | CONS ---
CONSULTING PHYSICIAN: Tee Michelle MD DATE OF CONSULTATION: 06/11/2019 HISTORY OF PRESENT ILLNESS: This is an 88-year-old female, who lives at [facility], who fell with her walker, sustaining a left lower extremity injury. The patient was unable to weight bear and unable to get up off the floor. She was subsequently taken by the ambulance where she was found to have a left distal femur fracture. The patient denies any previous pain or injury to the left knee before this happened and was able to ambulate with a walker. She is doing assisted living at this point. The patient subsequently was admitted to Hospitalist Service, and we were consulted for surgical fixation. The patient has a history of atrial fibrillation and is on blood thinners, but she last took her blood thinner Eliquis 2 days ago. PHYSICAL EXAMINATION: GENERAL: The patient is alert. She is in no acute distress. EXTREMITIES: Does have obvious deformity to the left distal femur. She has 2+ distal pulses. She is neurovascularly intact L2 through S1 with 2+ distal pulses. She has no ankle tenderness. She has no pain with log roll of the left hip. Otherwise, no gross deformity noted to the right lower extremity or the upper extremities. RADIOGRAPHS: Radiographs were reviewed, showing a severely displaced left distal femur fracture with comminution in the metaphyseal region. PLAN: At this time, secondary to the severe displacement as well as the neurovascular bundle that would be back there, I would recommend open reduction and internal fixation of the left distal femur. The risks, benefits, complications, and alternatives were discussed with both her and her caregiver at today's visit. The patient, at this time, is in agreement with this plan. Consent was obtained. We will take the patient directly back to surgery. RAMIN /[id number]
--- NOTE | 2019-06-17 17:08 | OR ---
DATE OF OPERATION: 06/11/2019 SURGEON: Tee Michelle MD OPERATION PERFORMED: Open reduction and internal fixation of left distal femur fracture. PREOPERATIVE DIAGNOSIS: Left distal femoral displaced supracondylar femur fracture. POSTOPERATIVE DIAGNOSIS: Left distal femoral displaced supracondylar femur fracture. ANESTHESIA: General LMA with local. ANESTHESIA PROVIDER: David Lucero CRNA. KICK BOXER: Lilliam Story PA-C. ESTIMATED BLOOD LOSS: 150 mL. COMPLICATIONS: None. CONDITION: Stable. DESCRIPTION OF PROCEDURE: The patient was identified in the preop holding area. Proper site was marked and identified by surgeon. The patient was taken back to the operating theater. After adequate anesthesia, the patient's left lower extremity was sterilely prepped and draped in the usual sterile fashion. OR time-out was performed. The patient received 2 g IV Ancef. At this time, standard lateral incision was made. This was taken down to the IT band. IT band was incised along the incisional length. The vastus lateralis was then identified and was retracted and the distal femoral was identified. At this time, submuscular plating with a distal femoral locking plate Baker, stainless steel, 8-hole, was then placed under direct C-arm fluoroscopy. The femur was first reduced and then the plate was K-wired into place and found to be in proper position. At this time, a nonlocking screw was placed distally, adhered the plate to the distal femur and then 5 locking screws were placed distally. Once this was secured and the patient did not have a flexion or extension deformity noted to the left lower extremity and the left knee, the plate was secured to the shaft. At this time, we placed alternating locking and nonlocking screws, with placing 7 screws proximal to the fracture site obtaining 14 cortices. At this time, it was found to have adequate fixation. The patient was able to achieve full knee extension and flexion with no instability noted on C-arm fluoroscopy. At this time, adequate saline was irrigated through the wound. 0 Vicryl was used for closure of the IT band, 2-0 Vicryl was used subcutaneously, and marybel were used for the skin. The patient had sterile soft dressing applied and was placed in a hinged knee brace and sent to the PACU in stable condition. MMODAL /[id number]
== END 2019-06-16 13:19 | DRG 481 ==
LOC: JD.ED 10:04 → JD.SDS 15:16 → OBSVTOIN 19:45 → JD.MS 19:45
PROVIDERS: ADMIT Internal Medicine; ATTEND Internal Medicine
PROC: 0QSC04Z Reposition Left Lower Femur with Internal Fixation Device, Open Approach (ICD-10-PCS; principal; 2019-06-11)
PROC: 0R9K3ZX Drainage of Left Shoulder Joint, Percutaneous Approach, Diagnostic (ICD-10-PCS; 2019-06-12)
DX: S72.452A Displaced supracondylar fracture without intracondylar extension of lower end of left femur, initial encounter for closed fracture (principal); D62 Acute posthemorrhagic anemia; M25.012 Hemarthrosis, left shoulder; I48.91 Unspecified atrial fibrillation; E55.9 Vitamin D deficiency, unspecified; F03.90 Unspecified dementia, unspecified severity, without behavioral disturbance, psychotic disturbance, mood disturbance, and anxiety; F32.9 Major depressive disorder, single episode, unspecified; F41.9 Anxiety disorder, unspecified; K44.9 Diaphragmatic hernia without obstruction or gangrene; K21.9 Gastro-esophageal reflux disease without esophagitis; K59.00 Constipation, unspecified; M79.81 Nontraumatic hematoma of soft tissue; M16.12 Unilateral primary osteoarthritis, left hip; D64.9 Anemia, unspecified; W19.XXXA Unspecified fall, initial encounter; Z90.89 Acquired absence of other organs; Z90.49 Acquired absence of other specified parts of digestive tract; Z79.01 Long term (current) use of anticoagulants; Z79.899 Other long term (current) drug therapy; Z91.018 Allergy to other foods; Z87.440 Personal history of urinary (tract) infections; Z79.82 Long term (current) use of aspirin
CPT/HCPCS: 01230; 36415; 36430; 51702; 51798; 70450; 70450-26; 71045; 71045-26; 73030-26-LT; 73030-LT; 73502-26-LT; 73502-LT; 73560-26-LT; 73560-LT; 76000; 76000-26; 76881-26-LT; 76881-LT; 80048; 80053; 83735; 84100; 85014; 85025; 85027; 85610; 86850; 86900; 86901; 86922; 87070; 87205; 87641; 89050; 89060; 92523-GN; 93005; 93010; 96361; 96374; 97110-GO; 97110-GP; 97162-GP; 97165-GO; 97530-GO; 97530-GP; 99284; 99285-25; A9270-GY; C1713; J0690; J1170; J2001; J2370; J2704; J3010; J3475; J3490; J7030; J7050; J7120; P9016

== ENCOUNTER 2019-06-21 18:23 | Inpatient (IN) | payer MEDICARE, OTHER ==
[2019-06-21] MEDS ORDERED: Sodium Chloride 0.9% 10 ML Syringe FLUSH PRN (18:35)
--- NOTE | 2019-06-21 18:52 | EDM.PDOC ---
ED HPI GENERAL MEDICAL PROBLEM - General Chief Complaint: Gastrointestinal Problem Stated Complaint: [facility] Time Seen by Provider: 06/21/19 18:30 Source of Information: Reports: Patient, EMS, Senior Living Records, RN Notes Reviewed - History of Present Illness INITIAL COMMENTS - FREE TEXT/NARRATIVE: 88 female has been brought here by EMS for evaluation of rectal bleeding. We don 't have a lot of information at this time but understand there has been some rectal bleeding and also now hypotension along with that. Patient does have history of dementia but states that she has to her knowledge been having some rectal bleeding for the last 2 or 3 days and occasionally prior to that. She just had a fall around 10 days ago and suffered fracture distal left humerus. It looks like she was just discharged to the alf about 4 days ago. She had been living at the [facility] prior to her fall. Med list did not come over with the patient, we are getting that information at this time. It is likely that she has been on some type of blood thinner type therapy. She states she has been having some abdominal pain off and on today. We did call the alf for more information and they state that she had to "bloody stools this past morning and then 1 this later afternoon. - Related Data Allergies Allergy/AdvReac Type Severity Reaction Status Date / Time aloe vera Allergy Rash Verified 06/21/19 18:30 Home Meds: Home Meds Celecoxib 200 mg PO DAILY 06/11/19 [History] Cholecalciferol (Vitamin D3) [Vitamin D3] 1,000 unit PO DAILY 06/11/19 [History] Ferrous Sulfate 325 mg PO MOWEFR 06/11/19 [History] Menthol [Biofreeze] 1 applic TOP TID PRN 06/11/19 [History] Mirtazapine 7.5 mg PO BEDTIME 06/11/19 [History] Sertraline [Zoloft] 75 mg PO DAILY 06/11/19 [History] bisacodyL [Dulcolax] 5 mg PO DAILY PRN 06/11/19 [History] Aspirin 81 mg PO BEDTIME #30 tab.chew 06/16/19 [Rx] Hydrocodone/Acetaminophen [[place] 5-325 Tablet] 1 each PO Q8H PRN #15 tablet [Rx] Lactulose 10 gm PO Q12HR PRN #10 packet 06/16/19 [Rx] Metoprolol Tartrate 12.5 mg PO DAILY #15 tablet 06/16/19 [Rx] Sennosides/Docusate Sodium [Senna Plus 8.6-50 mg Softgel] 1 each PO BID #14 capsule 06/16/19 [Rx] amLODIPine Besylate [Amlodipine Besylate] 10 mg PO DAILY #30 tablet 06/16/19 [Rx ] Past Medical History HEENT History: Reports: Other (See Below) Other HEENT History: has no teeth. Cardiovascular History: Reports: Afib Gastrointestinal History: Reports: GERD Genitourinary History: Reports: UTI, Recurrent CASH APPLICATION REPRESENTATIVE History: Reports: Musculoskeletal History: Reports: Arthritis, Other (See Below) Other Musculoskeletal History: Unilateral osteoarthritis of L hip Neurological History: Reports: Other (See Below) Other Neuro History: dementia--pt resides in memory care facility Psychiatric History: Reports: Dementia Hematologic History: Reports: Anemia Other Hematologic History: Vitamin D deficiency - Past Surgical History HEENT Surgical History: Reports: Tonsillectomy GI Surgical History: Reports: Appendectomy, Cholecystectomy Social & Family History - Family History Family Medical History: Noncontributory - Tobacco Use Smoking Status *Q: Never Smoker - Caffeine Use Caffeine Use: Reports: Tea ED ROS GENERAL - Review of Systems Review Of Systems: See Below Constitutional: Denies: Diaphoresis HEENT: Denies: Throat Pain Respiratory: Denies: Shortness of Breath, Pleuritic Chest Pain Cardiovascular: Denies: Chest Pain GI/Abdominal: Reports: Abdominal Pain (Mild generalized), Hematochezia, Melena. Denies: Hematemesis, Nausea, Vomiting Musculoskeletal: Reports: Leg Pain (Left distal thigh pain and left knee pain) Skin: Reports: Bruising (Left thigh) Neurological: Reports: Other (History dementia). Denies: Numbness, Tingling, Trouble Speaking ED EXAM, GI/ABD - Physical Exam Exam: See Below General Appearance: Alert, No Apparent Distress Eyes: Bilateral: Normal Appearance Throat/Mouth: Other (Oral mucosa is somewhat dry) Neck: Normal Inspection Respiratory/Chest: No Respiratory Distress, Lungs Clear, Normal Breath Sounds Cardiovascular: Tachycardia, Irregularly Irregular GI/Abdominal Exam: Soft, Other (Mild upper midabdominal tenderness). No: Guarding, Rebound Rectal (Female) Exam: Other (Maroon colored blood present inside and outside rectum at time of rectal exam, no mass palpable or unusual tenderness) Extremities: Joint Swelling (There is swelling of the left knee and left distal femur wearing a knee immobilizer) Neurological: Alert, No Motor/Sensory Deficits Skin Exam: Warm, Intact, Ecchymosis (There is diffuse bruising noted of the left thigh) Course - Vital Signs Last Recorded V/S: Last Vital Signs Temp 97.8 F 06/21/19 18:30 Pulse 113 H 06/21/19 18:30 Resp BP 94/65 06/21/19 18:30 Pulse Ox 99 06/21/19 18:30 - Orders/Labs/Meds Orders: Active Orders 24 hr Category Date Time Status EKG 12 Lead [EKG Documentation Completion] [RC] STAT Care 06/21/19 18:36 Active Peripheral IV Care [RC] . DIRECTED Care 06/21/19 18:36 Active PACKED CELLS [RED BLOOD CELLS LP] [BBK] Stat Lab 06/21/19 18:30 Received TYPE AND SCREEN [BBK] Stat Lab 06/21/19 18:30 Received Pantoprazole [ProTONIX IV] Med 06/21/19 19:30 Ordered 40 mg IVPUSH Q12H Sodium Chloride 0.9% [Saline Flush] Med 06/21/19 18:35 Active 10 ml FLUSH ASDIRECTED PRN Peripheral IV Insertion Adult [OM.PC] Stat Oth 06/21/19 18:36 Ordered Transfuse PRBC [Transfuse Red Blood Cells] [COMM] Stat Oth 06/21/19 19:22 Ordered Medication Orders Pantoprazole Sodium (Protonix Iv) 40 mg IVPUSH Q12H BETH Sodium Chloride (Saline Flush) 10 ml FLUSH ASDIRECTED PRN PRN Reason: Keep Vein Open Labs: Laboratory Tests 06/21/19 06/21/19 06/21/19 Range/Units 18:30 18:30 18:30 WBC 11.48 H (3.98-10.04) K/mm3 RBC 3.01 L (3.98-5.22) M/mm3 Hgb 8.0 L D (11.2-15.7) gm/dl Hct 24.6 L (34.1-44.9) % MCV 81.7 (79.4-94.8) fl MCH 26.6 (25.6-32.2) pg MCHC 32.5 (32.2-35.5) g/dl RDW Std Deviation 50.8 H (36.4-46.3) fL Plt Count 486 H D (182-369) K/mm3 MPV 8.6 L (9.4-12.3) fl Neut % (Auto) 74.4 H (34.0-71.1) % Lymph % (Auto) 16.0 L (19.3-51.7) % [place] % (Auto) 8.3 (4.7-12.5) % Eos % (Auto) 0.8 (0.7-5.8) Baso % (Auto) 0.2 (0.1-1.2) % Neut # (Auto) 8.55 H (1.56-6.13) K/mm3 Lymph # (Auto) 1.84 (1.18-3.74) K/mm3 [place] # (Auto) 0.95 H (0.24-0.36) K/mm3 Eos # (Auto) 0.09 (0.04-0.36) K/mm3 Baso # (Auto) 0.02 (0.01-0.08) K/mm3 Manual Slide Review Abnormal smear PT 11.9 (9.7-12.0) SECONDS INR 1.10 APTT 30 (22-31) SECONDS Sodium 137 (136-145) mEq/L Potassium 4.5 (3.5-5.1) mEq/L Chloride 103 (98-107) mEq/L Carbon Dioxide 23 (21-32) mEq/L Anion Gap 15.5 H (5-15) BUN 33 H (7-18) mg/dL Creatinine 1.0 (0.55-1.02) mg/dL Est Cr Clr Drug Dosing TNP Estimated GFR (MDRD) 53 (>60) mL/min BUN/Creatinine Ratio 33.0 H (14-18) Glucose 104 (83-115) mg/dL Calcium 8.1 L (8.5-10.1) mg/dL Total Bilirubin 1.2 H (0.2-1.0) mg/dL AST 17 (15-37) U/L ALT 14 (14-59) U/L Alkaline Phosphatase 92 (46-116) U/L Total Protein 5.8 L (6.4-8.2) g/dl Albumin 2.5 L (3.4-5.0) g/dl Globulin 3.3 gm/dL Albumin/Globulin Ratio 0.8 L (1-2) Crossmatch 06/21/19 Range/Units 18:30 WBC (3.98-10.04) K/mm3 RBC (3.98-5.22) M/mm3 Hgb (11.2-15.7) gm/dl Hct (34.1-44.9) % MCV (79.4-94.8) fl MCH (25.6-32.2) pg MCHC (32.2-35.5) g/dl RDW Std Deviation (36.4-46.3) fL Plt Count (182-369) K/mm3 MPV (9.4-12.3) fl Neut % (Auto) (34.0-71.1) % Lymph % (Auto) (19.3-51.7) % [place] % (Auto) (4.7-12.5) % Eos % (Auto) (0.7-5.8) Baso % (Auto) (0.1-1.2) % Neut # (Auto) (1.56-6.13) K/mm3 Lymph # (Auto) (1.18-3.74) K/mm3 [place] # (Auto) (0.24-0.36) K/mm3 Eos # (Auto) (0.04-0.36) K/mm3 Baso # (Auto) (0.01-0.08) K/mm3 Manual Slide Review PT (9.7-12.0) SECONDS INR APTT (22-31) SECONDS Sodium (136-145) mEq/L Potassium (3.5-5.1) mEq/L Chloride (98-107) mEq/L Carbon Dioxide (21-32) mEq/L Anion Gap (5-15) BUN (7-18) mg/dL Creatinine (0.55-1.02) mg/dL Est Cr Clr Drug Dosing Estimated GFR (MDRD) (>60) mL/min BUN/Creatinine Ratio (14-18) Glucose (83-115) mg/dL Calcium (8.5-10.1) mg/dL Total Bilirubin (0.2-1.0) mg/dL AST (15-37) U/L ALT (14-59) U/L Alkaline Phosphatase (46-116) U/L Total Protein (6.4-8.2) g/dl Albumin (3.4-5.0) g/dl Globulin gm/dL Albumin/Globulin Ratio (1-2) Crossmatch See Detail Meds: Medications Generic Name Dose Route Start Last Admin Trade Name Freq PRN Reason Stop Dose Admin Pantoprazole Sodium 40 mg 06/21/19 19:30 Protonix Iv IVPUSH Q12H BETH Sodium Chloride 10 ml 06/21/19 18:35 Saline Flush FLUSH ASDIRECTED PRN Keep Vein Open - Re-Assessments/Exams Free Text/Narrative Re-Assessment/Exam: 06/21/19 19:05 As noted med list was not sent over with the patient nor was a detailed problem list. [facility] has been called and they will be faxing that information over to us. Appropriate initial labs been ordered. Of note her hemoglobin at around time of discharge 5 days ago was 9.7. 06/21/19 19:15. Hemoglobin this evening is 8.0. As noted at time of rectal exam there4 was a small amount of blood around the rectum maroonish red indicating ongoing rectal bleeding, source unclear. Considering her age, ongoing rectal bleeding hemoglobin of 8 I have ordered type and cross for 2 units packed cells start slow transfusion when available. Have ordered Protonix 40 mg IV now and continue twice a day. I discussed this with Dr. Alba, Hospitalist who would also like to continue with every 4 hours hemoglobins. Admit to ICU to better monitor and care for this patient. She is DNR status. Departure - Departure Time of Disposition: 19:35 Disposition: Admitted As Inpatient 68 Condition: Serious Clinical Impression: Rectal bleeding, Atrial fibrillation with RVR Anemia Qualifiers: Anemia type: unspecified type Qualified Code(s): D64.9 - Anemia, unspecified - Discharge Information Forms: ED Department Discharge Sepsis Event Note - Evaluation Sepsis Screening Result: No Definite Risk - Focused Exam Vital Signs: Vital Signs Temp Pulse BP Pulse Ox 06/21/19 18:30 97.8 F 113 H 94/65 99 Date Exam was Performed: 06/21/19 Time Exam was Performed: 19:27 ED Communication - Discussed Case With (1) Discussed Case With (1): Admitting Provider (Dr Alba, decision to admit at about 19:15.) - My Orders Last 24 Hours: My Active Orders 06/21/19 18:30 PACKED CELLS [RED BLOOD CELLS LP] [BBK] Stat TYPE AND SCREEN [BBK] Stat 06/21/19 18:35 Sodium Chloride 0.9% [Saline Flush] 10 ml FLUSH ASDIRECTED PRN 06/21/19 18:36 EKG 12 Lead [EKG Documentation Completion] [RC] STAT Peripheral IV Care [RC] . DIRECTED Peripheral IV Insertion Adult [OM.PC] Stat 06/21/19 19:22 Transfuse PRBC [Transfuse Red Blood Cells] [COMM] Stat 06/21/19 19:30 Pantoprazole [ProTONIX IV] 40 mg IVPUSH Q12H - Assessment/Plan Last 24 Hours: My Active Orders 06/21/19 18:30 PACKED CELLS [RED BLOOD CELLS LP] [BBK] Stat TYPE AND SCREEN [BBK] Stat 06/21/19 18:35 Sodium Chloride 0.9% [Saline Flush] 10 ml FLUSH ASDIRECTED PRN 06/21/19 18:36 EKG 12 Lead [EKG Documentation Completion] [RC] STAT Peripheral IV Care [RC] . DIRECTED Peripheral IV Insertion Adult [OM.PC] Stat 06/21/19 19:22 Transfuse PRBC [Transfuse Red Blood Cells] [COMM] Stat 06/21/19 19:30 Pantoprazole [ProTONIX IV] 40 mg IVPUSH Q12H
[2019-06-21] MEDS: Pantoprazole 40 MG Vial IVPUSH SCH (19:43)
[2019-06-21] MEDS ORDERED: Sodium Chloride 0.9% 250 ML IV SCH (21:00)
[2019-06-21] MEDS ORDERED: Lactated Ringers 1,000 ML IV SCH (23:45)
--- NOTE | 2019-06-22 05:49 | PCM.HP.2 ---
H&P History of Present Illness - General Date of Service: 06/22/19 Admit Problem/Dx: Admission Diagnosis/Problem Admission Diagnosis/Problem Gastrointestinal hemorrhage - History of Present Illness Initial Comments - Free Text/Narative: This is an 88-year-old female who comes to the ED via EMS for hematochezia. Information is very limited but she zamora sbeen javing multiple episode of hematochezia and hypotension for which she was sent here. OF note she was recently discharged from this facility after a fall with subsequent femur fracture and ORIF. Discharged on baby aspirin. Abdomen Pain Score (Numeric/FACES): 2 - Related Data Allergies/Adverse Reactions: Allergies Allergy/AdvReac Type Severity Reaction Status Date / Time aloe vera Allergy Rash Verified 06/21/19 18:30 Home Medications: Home Meds Celecoxib 200 mg PO DAILY 06/11/19 [History] Cholecalciferol (Vitamin D3) [Vitamin D3] 1,000 unit PO DAILY 06/11/19 [History] Ferrous Sulfate 325 mg PO MOWEFR 06/11/19 [History] Mirtazapine 7.5 mg PO BEDTIME 06/11/19 [History] Sertraline [Zoloft] 75 mg PO DAILY 06/11/19 [History] bisacodyL [Dulcolax] 5 mg PO DAILY PRN 06/11/19 [History] Aspirin 81 mg PO BEDTIME #30 tab.chew 06/16/19 [Rx] Hydrocodone/Acetaminophen [[place] 5-325 Tablet] 1 each PO Q8H PRN #15 tablet [Rx] Lactulose 10 gm PO Q12HR PRN #10 packet 06/16/19 [Rx] Metoprolol Tartrate 12.5 mg PO DAILY #15 tablet 06/16/19 [Rx] Sennosides/Docusate Sodium [Senna Plus 8.6-50 mg Softgel] 1 each PO BID #14 capsule 06/16/19 [Rx] amLODIPine Besylate [Amlodipine Besylate] 10 mg PO DAILY #30 tablet 06/16/19 [Rx ] Acetaminophen [Tylenol] 650 mg PO Q6HR PRN 06/21/19 [History] Apixaban [Eliquis] 2.5 mg PO BID 06/21/19 [History] Ascorbate Calcium [Vitamin C] 500 mg PO DAILY 06/21/19 [History] Lidocaine HCl [Aspercreme] 76.5 gm TP TID PRN 06/21/19 [History] Past Medical History HEENT History: Reports: Other (See Below) Other HEENT History: has no teeth. Cardiovascular History: Reports: Afib Gastrointestinal History: Reports: GERD Genitourinary History: Reports: UTI, Recurrent [employer] History: Reports: Musculoskeletal History: Reports: Arthritis, Other (See Below) Other Musculoskeletal History: Unilateral osteoarthritis of L hip. left femur fractur Neurological History: Reports: Other (See Below) Other Neuro History: dementia--pt resides in [facility] facility Psychiatric History: Reports: Dementia Hematologic History: Reports: Anemia Other Hematologic History: Vitamin D deficiency - Past Surgical History HEENT Surgical History: Reports: Tonsillectomy GI Surgical History: Reports: Appendectomy, Cholecystectomy Social & Family History - Family History Family Medical History: Noncontributory - Tobacco Use Smoking Status *Q: Never Smoker - Caffeine Use Caffeine Use: Reports: Tea - Recreational Drug Use Recreational Drug Use: No H&P Review of Systems - Review of Systems: Review Of Systems: Unable To Obtain Reason Not Obtained: advanced dementia Exam - Exam Exam: See Below - Vital Signs Vital Signs: Last Vital Signs Temp 98.6 F 06/22/19 02:24 Pulse 90 06/22/19 04:31 Resp 21 H 06/22/19 04:31 BP 97/59 L 06/22/19 04:31 Pulse Ox 93 L 06/22/19 04:31 Weight: 83.915 kg - Exam Physical Exam Comments:: General Appearance: Alert, No Apparent Distress Eyes: Bilateral: Normal Appearance Throat/Mouth: Other (Oral mucosa is somewhat dry) Neck: Normal Inspection Respiratory/Chest: No Respiratory Distress, Lungs Clear, Normal Breath Sounds Cardiovascular: Tachycardia, Irregularly Irregular GI/Abdominal Exam: Soft, Other (Mild upper midabdominal tenderness). No: Guarding, Rebound Rectal (Female) Exam: Other (Maroon colored blood present inside and outside rectum at time of rectal exam, no mass palpable or unusual tenderness) Extremities: Joint Swelling (There is swelling of the left knee and left distal femur wearing a knee immobilizer) Neurological: Alert, No Motor/Sensory Deficits Skin Exam: Warm, Intact, Ecchymosis (There is diffuse bruising noted of the left thigh) - Patient Data Lab Results Last 24 hrs: Laboratory Results - last 24 hr 06/21/19 06/21/19 06/21/19 Range/Units 18:30 18:30 18:30 WBC 11.48 H (3.98-10.04) K/mm3 RBC 3.01 L (3.98-5.22) M/mm3 Hgb 8.0 L D (11.2-15.7) gm/dl Hct 24.6 L (34.1-44.9) % MCV 81.7 (79.4-94.8) fl MCH 26.6 (25.6-32.2) pg MCHC 32.5 (32.2-35.5) g/dl RDW Std Deviation 50.8 H (36.4-46.3) fL Plt Count 486 H D (182-369) K/mm3 MPV 8.6 L (9.4-12.3) fl Neut % (Auto) 74.4 H (34.0-71.1) % Lymph % (Auto) 16.0 L (19.3-51.7) % [place] % (Auto) 8.3 (4.7-12.5) % Eos % (Auto) 0.8 (0.7-5.8) Baso % (Auto) 0.2 (0.1-1.2) % Neut # (Auto) 8.55 H (1.56-6.13) K/mm3 Lymph # (Auto) 1.84 (1.18-3.74) K/mm3 [place] # (Auto) 0.95 H (0.24-0.36) K/mm3 Eos # (Auto) 0.09 (0.04-0.36) K/mm3 Baso # (Auto) 0.02 (0.01-0.08) K/mm3 Manual Slide Review Abnormal smear PT 11.9 (9.7-12.0) SECONDS INR 1.10 APTT 30 (22-31) SECONDS Sodium 137 (136-145) mEq/L Potassium 4.5 (3.5-5.1) mEq/L Chloride 103 (98-107) mEq/L Carbon Dioxide 23 (21-32) mEq/L Anion Gap 15.5 H (5-15) BUN 33 H (7-18) mg/dL Creatinine 1.0 (0.55-1.02) mg/dL Est Cr Clr Drug Dosing TNP Estimated GFR (MDRD) 53 (>60) mL/min BUN/Creatinine Ratio 33.0 H (14-18) Glucose 104 (83-115) mg/dL Calcium 8.1 L (8.5-10.1) mg/dL Total Bilirubin 1.2 H (0.2-1.0) mg/dL AST 17 (15-37) U/L ALT 14 (14-59) U/L Alkaline Phosphatase 92 (46-116) U/L Total Protein 5.8 L (6.4-8.2) g/dl Albumin 2.5 L (3.4-5.0) g/dl Globulin 3.3 gm/dL Albumin/Globulin Ratio 0.8 L (1-2) Blood Type Gel Antibody Screen Crossmatch 06/21/19 06/22/19 Range/Units 18:30 03:30 WBC (3.98-10.04) K/mm3 RBC (3.98-5.22) M/mm3 Hgb 9.9 L D (11.2-15.7) gm/dl Hct (34.1-44.9) % MCV (79.4-94.8) fl MCH (25.6-32.2) pg MCHC (32.2-35.5) g/dl RDW Std Deviation (36.4-46.3) fL Plt Count (182-369) K/mm3 MPV (9.4-12.3) fl Neut % (Auto) (34.0-71.1) % Lymph % (Auto) (19.3-51.7) % [place] % (Auto) (4.7-12.5) % Eos % (Auto) (0.7-5.8) Baso % (Auto) (0.1-1.2) % Neut # (Auto) (1.56-6.13) K/mm3 Lymph # (Auto) (1.18-3.74) K/mm3 [place] # (Auto) (0.24-0.36) K/mm3 Eos # (Auto) (0.04-0.36) K/mm3 Baso # (Auto) (0.01-0.08) K/mm3 Manual Slide Review PT (9.7-12.0) SECONDS INR APTT (22-31) SECONDS Sodium (136-145) mEq/L Potassium (3.5-5.1) mEq/L Chloride (98-107) mEq/L Carbon Dioxide (21-32) mEq/L Anion Gap (5-15) BUN (7-18) mg/dL Creatinine (0.55-1.02) mg/dL Est Cr Clr Drug Dosing Estimated GFR (MDRD) (>60) mL/min BUN/Creatinine Ratio (14-18) Glucose (83-115) mg/dL Calcium (8.5-10.1) mg/dL Total Bilirubin (0.2-1.0) mg/dL AST (15-37) U/L ALT (14-59) U/L Alkaline Phosphatase (46-116) U/L Total Protein (6.4-8.2) g/dl Albumin (3.4-5.0) g/dl Globulin gm/dL Albumin/Globulin Ratio (1-2) Blood Type A POSITIVE Gel Antibody Screen Negative Crossmatch See Detail Result Diagrams: 06/22/19 03:30 06/21/19 18:30 Sepsis Event Note - Evaluation Sepsis Screening Result: No Definite Risk - Problem List (1) Rectal bleeding SNOMED Code(s): 17960992 ICD Code: K62.5 - HEMORRHAGE OF ANUS AND RECTUM Status: Acute Current Visit: No (2) Anemia SNOMED Code(s): 413934348 ICD Code: D64.9 - ANEMIA, UNSPECIFIED Status: Acute Current Visit: No Qualifiers: Anemia type: unspecified type Qualified Code(s): D64.9 - Anemia, unspecified (3) Atrial fibrillation SNOMED Code(s): 64597994 ICD Code: I48.91 - UNSPECIFIED ATRIAL FIBRILLATION Status: Acute Current Visit: No (4) Dementia SNOMED Code(s): 51591105 ICD Code: F03.90 - UNSPECIFIED DEMENTIA WITHOUT BEHAVIORAL DISTURBANCE Status: Acute Current Visit: No (5) Femur fracture, left SNOMED Code(s): 77112376 ICD Code: S72.92XA - UNSP FRACTURE OF LEFT FEMUR, INIT ENCNTR FOR CLOSED FRACTURE Status: Acute Current Visit: No Qualifiers: Encounter type: initial encounter Femur location: distal, unspecified portion Fracture type: closed Fracture morphology: other fracture Qualified Code(s): S72.492A - Other fracture of lower end of left femur, initial encounter for closed fracture (6) Hiatal hernia 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 esophagitis SNOMED Code(s): 744792006 ICD Code: K44.9 - DIAPHRAGMATIC HERNIA WITHOUT OBSTRUCTION OR GANGRENE; K21.9 - GASTRO-ESOPHAGEAL REFLUX DISEASE WITHOUT ESOPHAGITIS Status: Acute Current Visit: No (7) Vitamin D deficiency SNOMED Code(s): 46586152 ICD Code: E55.9 - VITAMIN D DEFICIENCY, UNSPECIFIED Status: Acute Current Visit: No Problem List Initiated/Reviewed/Updated: Yes Assessment/Plan Comment:: Rectal bleeding Anemia Previously on Eliquis Discontinued on previous admission and discharged on aspirina alone Found to be hypotensive with BRBPR in nusring home Positive LYNETTE in the ED PLAN - Scheduled pantopraolve - Transfuse when indicated - REpeat hemglobin - Consult surgery if steadily declining Atrial fibrillation Rate controlled Continue home medications PLAN - Monitor VS - Continue home meds Dementia No acute issues PLAN - Let me sleep protocol PROPHYLAXIS DVT- TANISHA GI- pantoprazole CODE STATUS: DNR DNI DISPOSITION: Patient will be admitted to the ICU for close cmonitorizations trasnferred to floor if hb remains stable
[2019-06-22] MEDS: Pantoprazole 40 MG Vial IVPUSH SCH ×2 (07:57→19:06)
[2019-06-22] MEDS ORDERED: LIDOCAINE TOP PRN (09:04)
[2019-06-22] MEDS ORDERED: [UNRECOGNIZED DRUG - OTHER] TOP PRN (09:04)
[2019-06-22] MEDS ORDERED: Bisacodyl 5 MG Tab PO PRN (09:04)
[2019-06-22] MEDS ORDERED: Magnesium Sulfate/Water 2 GM in Premix Bag 1 BAG IV ONE (09:09)
[2019-06-22] MEDS ORDERED: Lactulose Soln 10 GM/15 ML 30 ML UD Cup PO PRN (09:15)
[2019-06-22] MEDS: Sertraline 50 MG Tab PO SCH (09:57)
[2019-06-22] MEDS: Metoprolol Tartrate 25 MG Tab PO SCH (09:58)
[2019-06-22] MEDS ORDERED: Calcium Carbonate 500 MG Tab.Chew PO PRN (10:28)
--- NOTE | 2019-06-22 10:33 | CR ---
Chest: Portable view of the chest was obtained. Comparison: Prior chest x-ray of 06/11/19. Heart is enlarged. Pulmonary vessels are mildly congested. Lungs otherwise are clear with no acute parenchymal opacities seen. Degenerative change is noted within both shoulders. 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 Mild scoliosis is noted with scattered disc space narrowing and endplate spurring. Osteopenia is also present. Impression: 1. Findings suspicious for mild CHF. 2. Other nonacute findings as noted above. Diagnostic code #3 This report was dictated in [place] Standard Time
[2019-06-22] MEDS: Ondansetron 4 MG/2 ML SDV IVPUSH PRN (11:24)
[2019-06-22] MEDS ORDERED: Furosemide 20 MG/2 ML VIAL IVPUSH ONE (14:36)
--- NOTE | 2019-06-22 14:36 | PCM.SN ---
- Free Text/Narrative Note: Went to see patient as follow-up from admission. Patient overall is doing well but continues to have black watery stools. Repeat hemoglobin is up to 10.0. Chest x-ray was performed after getting to units of packed red blood cells to rule out fluid overload and I did suggest some mild CHF. I will give her Lasix 20 mg IV x1. Continue to monitor hemoglobin.
[2019-06-22] MEDS: Mirtazapine 15 MG Tab PO SCH (20:24)
[2019-06-22] MEDS: Acetaminophen/HYDROcodone 325-5 MG Tab PO PRN (20:25)
[2019-06-23] MEDS: Acetaminophen/HYDROcodone 325-5 MG Tab PO PRN ×2 (05:25→17:38)
[2019-06-23] MEDS: Pantoprazole 40 MG Vial IVPUSH SCH ×3 (05:30→19:27)
[2019-06-23] MEDS: Sertraline 50 MG Tab PO SCH (08:02)
[2019-06-23] MEDS: Acetaminophen 325 MG Tab PO PRN (08:04)
[2019-06-23] MEDS: Metoprolol Tartrate 25 MG Tab PO SCH (08:06)
--- NOTE | 2019-06-23 08:11 | PCM.PN ---
- General Info Date of Service: 06/23/19 Admission Dx/Problem (Free Text): Admission Diagnosis/Problem Admission Diagnosis/Problem Gastrointestinal hemorrhage Functional Status: Reports: Pain Controlled, Tolerating Diet, Ambulating, Urinating. Denies: New Symptoms - Review of Systems General: Reports: No Symptoms, Weakness. Denies: Fever, Fatigue, Malaise, Chills HEENT: Reports: No Symptoms. Denies: Headaches Pulmonary: Reports: No Symptoms. Denies: Shortness of Breath, Cough, Sputum, Wheezing Cardiovascular: Reports: No Symptoms. Denies: Chest Pain, Palpitations Gastrointestinal: Reports: No Symptoms. Denies: Abdominal Pain, Constipation, Diarrhea, Nausea, Vomiting Genitourinary: Reports: No Symptoms. Denies: Pain Musculoskeletal: Reports: No Symptoms Skin: Reports: No Symptoms. Denies: Cyanosis Neurological: Reports: Pre-Existing Deficit (s/p left femur OIRF), Difficulty Walking, Gait Disturbance Psychiatric: Reports: No Symptoms Systems Review Comment:: ROS difficult to obtain based on dementia. Overall patient denies any pain. ROS is a combination of patient responses and nursing observations. - Patient Data Vitals - Most Recent: Last Vital Signs Temp 97.9 F 06/23/19 05:29 Pulse 101 H 06/23/19 08:06 Resp 18 06/23/19 05:29 BP 114/69 06/23/19 08:06 Pulse Ox 92 L 06/23/19 05:29 Weight - Most Recent: 175 lb 3.2 oz I&O - Last 24 Hours: Intake & Output 06/22/19 06/23/19 06/23/19 22:59 06:59 14:59 Intake Total 1220 600 Output Total 200 1950 Balance 1020 -1350 Lab Results Last 24 Hours: Laboratory Results - last 24 hr 06/22/19 06/22/19 06/22/19 Range/Units 07:37 07:37 11:52 WBC (3.98-10.04) K/mm3 RBC (3.98-5.22) M/mm3 Hgb 10.0 L (11.2-15.7) gm/dl Hct (34.1-44.9) % MCV (79.4-94.8) fl MCH (25.6-32.2) pg MCHC (32.2-35.5) g/dl RDW Std Deviation (36.4-46.3) fL Plt Count (182-369) K/mm3 MPV (9.4-12.3) fl Neut % (Auto) (34.0-71.1) % Lymph % (Auto) (19.3-51.7) % [place] % (Auto) (4.7-12.5) % Eos % (Auto) (0.7-5.8) Baso % (Auto) (0.1-1.2) % Neut # (Auto) (1.56-6.13) K/mm3 Lymph # (Auto) (1.18-3.74) K/mm3 [place] # (Auto) (0.24-0.36) K/mm3 Eos # (Auto) (0.04-0.36) K/mm3 Baso # (Auto) (0.01-0.08) K/mm3 Sodium (136-145) mEq/L Potassium (3.5-5.1) mEq/L Chloride (98-107) mEq/L Carbon Dioxide (21-32) mEq/L Anion Gap (5-15) BUN (7-18) mg/dL Creatinine (0.55-1.02) mg/dL Est Cr Clr Drug Dosing mL/min Estimated GFR (MDRD) (>60) mL/min BUN/Creatinine Ratio (14-18) Glucose (83-115) mg/dL Calcium (8.5-10.1) mg/dL Phosphorus 3.3 (2.6-4.7) mg/dL Magnesium 1.6 L (1.8-2.4) mg/dl NT-Pro-B Natriuret Pep 8745 H (0-450) pg/mL 06/22/19 06/22/19 06/23/19 Range/Units 16:00 19:33 00:02 WBC (3.98-10.04) K/mm3 RBC (3.98-5.22) M/mm3 Hgb 9.6 L 9.0 L 8.9 L (11.2-15.7) gm/dl Hct (34.1-44.9) % MCV (79.4-94.8) fl MCH (25.6-32.2) pg MCHC (32.2-35.5) g/dl RDW Std Deviation (36.4-46.3) fL Plt Count (182-369) K/mm3 MPV (9.4-12.3) fl Neut % (Auto) (34.0-71.1) % Lymph % (Auto) (19.3-51.7) % [place] % (Auto) (4.7-12.5) % Eos % (Auto) (0.7-5.8) Baso % (Auto) (0.1-1.2) % Neut # (Auto) (1.56-6.13) K/mm3 Lymph # (Auto) (1.18-3.74) K/mm3 [place] # (Auto) (0.24-0.36) K/mm3 Eos # (Auto) (0.04-0.36) K/mm3 Baso # (Auto) (0.01-0.08) K/mm3 Sodium (136-145) mEq/L Potassium (3.5-5.1) mEq/L Chloride (98-107) mEq/L Carbon Dioxide (21-32) mEq/L Anion Gap (5-15) BUN (7-18) mg/dL Creatinine (0.55-1.02) mg/dL Est Cr Clr Drug Dosing mL/min Estimated GFR (MDRD) (>60) mL/min BUN/Creatinine Ratio (14-18) Glucose (83-115) mg/dL Calcium (8.5-10.1) mg/dL Phosphorus (2.6-4.7) mg/dL Magnesium (1.8-2.4) mg/dl NT-Pro-B Natriuret Pep (0-450) pg/mL 06/23/19 06/23/19 Range/Units 05:24 05:24 WBC 7.32 (3.98-10.04) K/mm3 RBC 3.43 L (3.98-5.22) M/mm3 Hgb 9.4 L (11.2-15.7) gm/dl Hct 28.7 L (34.1-44.9) % MCV 83.7 (79.4-94.8) fl MCH 27.4 (25.6-32.2) pg MCHC 32.8 (32.2-35.5) g/dl RDW Std Deviation 49.8 H (36.4-46.3) fL Plt Count 369 (182-369) K/mm3 MPV 8.7 L (9.4-12.3) fl Neut % (Auto) 65.6 (34.0-71.1) % Lymph % (Auto) 20.8 (19.3-51.7) % [place] % (Auto) 9.8 (4.7-12.5) % Eos % (Auto) 3.1 (0.7-5.8) Baso % (Auto) 0.3 (0.1-1.2) % Neut # (Auto) 4.80 (1.56-6.13) K/mm3 Lymph # (Auto) 1.52 (1.18-3.74) K/mm3 [place] # (Auto) 0.72 H (0.24-0.36) K/mm3 Eos # (Auto) 0.23 (0.04-0.36) K/mm3 Baso # (Auto) 0.02 (0.01-0.08) K/mm3 Sodium 135 L (136-145) mEq/L Potassium 4.1 (3.5-5.1) mEq/L Chloride 100 (98-107) mEq/L Carbon Dioxide 25 (21-32) mEq/L Anion Gap 14.1 (5-15) BUN 30 H (7-18) mg/dL Creatinine 1.2 H (0.55-1.02) mg/dL Est Cr Clr Drug Dosing 26.38 mL/min Estimated GFR (MDRD) 43 (>60) mL/min BUN/Creatinine Ratio 25.0 H (14-18) Glucose 89 (83-115) mg/dL Calcium 8.7 (8.5-10.1) mg/dL Phosphorus (2.6-4.7) mg/dL Magnesium 2.1 (1.8-2.4) mg/dl NT-Pro-B Natriuret Pep (0-450) pg/mL Med Orders - Current: Current Medications Acetaminophen (Tylenol) 650 mg PO Q6H PRN PRN Reason: Pain Last Admin: 06/23/19 08:04 Dose: 650 mg Hydrocodone Bitart/Acetaminophen ([place] 325-5 Mg) 1 tab PO Q8H PRN PRN Reason: PAIN Last Admin: 06/23/19 05:25 Dose: 1 tab Bisacodyl (Dulcolax) 5 mg PO DAILY PRN PRN Reason: Constipation Calcium Carbonate/Glycine (Tums) 1,000 mg PO Q2HR PRN PRN Reason: Indigestion Last Admin: 06/22/19 11:23 Dose: 1,000 mg Lactulose (Cephulac) 10 gm PO Q12H PRN PRN Reason: CONSTIPATION Metoprolol Tartrate (Lopressor) 12.5 mg PO DAILY [facility] Last Admin: 06/23/19 08:06 Dose: 12.5 mg Mirtazapine (Remeron) 7.5 mg PO BEDTIME [facility] Last Admin: 06/22/19 20:24 Dose: 7.5 mg Ondansetron HCl (Zofran) 4 mg IVPUSH Q8H PRN PRN Reason: Nausea/Vomiting Last Admin: 06/22/19 11:24 Dose: 4 mg Pantoprazole Sodium (Protonix Iv) 40 mg IVPUSH Q12H [facility] Last Admin: 06/23/19 06:30 Dose: Not Given Aspercreme Lidocaine (76.5 Gm) 0 each TOP TID PRN PRN Reason: Pain Senna/Docusate Sodium (Senna Plus) 1 tab PO BID [facility] Last Admin: 06/23/19 08:04 Dose: 1 tab Sertraline HCl (Zoloft) 75 mg PO DAILY [facility] Last Admin: 06/23/19 08:02 Dose: 75 mg Sodium Chloride (Saline Flush) 10 ml FLUSH ASDIRECTED PRN PRN Reason: Keep Vein Open Last Admin: 06/21/19 19:44 Dose: 10 ml Discontinued Medications Furosemide (Lasix) 20 mg IVPUSH ONETIME ONE Stop: 06/22/19 14:37 Last Admin: 06/22/19 15:28 Dose: 20 mg Sodium Chloride (Normal Saline) 250 mls @ 50 mls/hr IV ASDIRECTED [facility] Last Admin: 06/22/19 02:25 Dose: 50 mls/hr Lactated Ringer's (Ringers, Lactated) 1,000 mls @ 50 mls/hr IV ASDIRECTED [facility] Last Admin: 06/22/19 00:22 Dose: 50 mls/hr Magnesium Sulfate 2 gm/ Premix 50 mls @ 25 mls/hr IV ONETIME ONE Stop: 06/22/19 11:08 Last Admin: 06/22/19 09:57 Dose: 25 mls/hr - Exam Quality Assessment: DVT Prophylaxis General: Alert, Cooperative, No Acute Distress HEENT: Pupils Equal, Pupils Reactive, Mucous Membr. Moist/[place] Neck: Supple, Trachea Midline Lungs: Clear to Auscultation, Normal Respiratory Effort Cardiovascular: Irregular Rhythm GI/Abdominal Exam: Normal Bowel Sounds, Soft, Non-Tender, No Distention, No Abnormal Bruit (Female) Exam: Deferred Back Exam: Normal Inspection, Decreased Range of Motion Extremities: Normal Inspection, Normal Range of Motion, No Pedal Edema, Normal Capillary Refill, Leg Pain (left ) Skin: Warm, Dry, Intact Neurological: No New Focal Deficit Psy/Mental Status: Alert Sepsis Event Note - Evaluation Sepsis Screening Result: No Definite Risk - Focused Exam Vital Signs: Vital Signs Temp Pulse Resp BP Pulse Ox 06/23/19 08:06 101 H 114/69 06/23/19 05:29 97.9 F 98 18 104/51 L 92 L 06/22/19 20:31 98.1 F 96 18 114/92 H 93 L Date Exam was Performed: 06/23/19 Time Exam was Performed: 11:49 - Problem List & Annotations (1) Status post fracture of femur SNOMED Code(s): 894715278 Code(s): Z87.81 - PERSONAL HISTORY OF (HEALED) TRAUMATIC FRACTURE Status: Acute Priority: High Current Visit: Yes (2) Anemia SNOMED Code(s): 250147089 Code(s): D64.9 - ANEMIA, UNSPECIFIED Status: Acute Priority: High Current Visit: Yes Qualifiers: Anemia type: unspecified type Qualified Code(s): D64.9 - Anemia, unspecified (3) Atrial fibrillation SNOMED Code(s): 90714788 Code(s): I48.91 - UNSPECIFIED ATRIAL FIBRILLATION Status: Chronic Priority: Medium Current Visit: Yes Qualifiers: Atrial fibrillation type: unspecified Qualified Code(s): I48.91 - Unspecified atrial fibrillation (4) Chronic anticoagulation SNOMED Code(s): 507579540 Code(s): Z79.01 - ORTHOPTIST (CURRENT) USE OF ANTICOAGULANTS Status: Chronic Priority: Medium Current Visit: No (5) Dementia SNOMED Code(s): 84375106 Code(s): F03.90 - UNSPECIFIED DEMENTIA WITHOUT BEHAVIORAL DISTURBANCE Status: Chronic Priority: Medium Current Visit: Yes Qualifiers: Dementia type: unspecified type Dementia behavioral disturbance: without behavioral disturbance Qualified Code(s): F03.90 - Unspecified dementia without behavioral disturbance (6) Rectal bleeding SNOMED Code(s): 14448104 Code(s): K62.5 - HEMORRHAGE OF ANUS AND RECTUM Status: Acute Priority: High Current Visit: Yes (7) Vitamin D deficiency SNOMED Code(s): 56811064 Code(s): E55.9 - VITAMIN D DEFICIENCY, UNSPECIFIED Status: Chronic Priority: Medium Current Visit: No (8) Hiatal hernia 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 esophagitis SNOMED Code(s): 801426277 Code(s): K44.9 - DIAPHRAGMATIC HERNIA WITHOUT OBSTRUCTION OR GANGRENE; K21.9 - GASTRO-ESOPHAGEAL REFLUX DISEASE WITHOUT ESOPHAGITIS Status: Chronic Priority: Medium Current Visit: No - Problem List Review Problem List Initiated/Reviewed/Updated: Yes - My Orders Last 24 Hours: My Active Orders 06/23/19 07:32 Consult to Occupational Therapy [OT Evaluation and Treatment] [CONS] Routine Consult to Physical Therapy [PT Evaluation and Treatment] [CONS] Routine 06/23/19 11:30 HEMOGLOBIN/HEMATOCRIT,HH [HEME] Routine - Plan Plan:: Rectal bleeding Anemia Previously on Eliquis Discontinued on previous admission and discharged on aspirin alone Found to be hypotensive with BRBPR in [facility] home Positive LYNETTE in the ED No bloody BMs today per nursing PLAN - Scheduled pantoprazole - Transfuse when indicated - Repeat hemoglobin today at 1130 and 1800 - Consult surgery if steadily declining Atrial fibrillation Rate controlled Continue home medications PLAN - Monitor VS - Continue home meds Dementia No acute issues PLAN - Let me sleep protocol PROPHYLAXIS DVT- TANISHA GI- pantoprazole CODE STATUS: DNR DNI DISPOSITION: Patient was admitted to the ICU and subsequently transferred to the floor once she became more stable.
[2019-06-23] MEDS: Mirtazapine 15 MG Tab PO SCH (20:49)
[2019-06-24] MEDS: Pantoprazole 40 MG Vial IVPUSH SCH ×2 (06:36→19:51)
--- NOTE | 2019-06-24 07:48 | PCM.PN ---
Addendum entered and electronically signed by Allen Montes De Oca PA-C 06/24/19 12:20 : 1100 Hgb check has returned very low at 6.5. Ordered 2 units PRBCs. Patient has had 2 actively bloody BMs since suppository was given. Nursing reports BM is not bright red but more dark. Contacted Dr. Lazar, general surgery who requested CTA of abdomen and pelvis with GI bleeding protocol. Discussed this with survey technologist. Dr. Lazar request we do not start blood transfusion until after CTA is obtained. Will make her NPO. Original Note: - General Info Date of Service: 06/24/19 Admission Dx/Problem (Free Text): Admission Diagnosis/Problem Admission Diagnosis/Problem Gastrointestinal hemorrhage Subjective Update: In to see Flaca. Her Hgb was 8.0 today, which was an unexpected drop. Will re- check at 1100. Dr. Lazar, General surgeon, consulted. Patient was complaining of left sided abdominal pain and felt distended. She had a BM today which appeared to to have some old blood in it. This did relieve her abdominal pain. Per Dr. Lazar, will order CTA of abdomen/pelvis if Hgb has dropped further. She also complained of some nausea, which nursing treated.. Functional Status: Reports: Pain Controlled (mostly ), Tolerating Diet, Urinating. Denies: New Symptoms - Review of Systems General: Reports: No Symptoms. Denies: Fever, Weakness, Fatigue, Malaise, Chills HEENT: Reports: No Symptoms. Denies: Headaches, Sore Throat Pulmonary: Reports: No Symptoms. Denies: Shortness of Breath, Pleuritic Chest Pain, Cough, Sputum, Wheezing Cardiovascular: Reports: No Symptoms. Denies: Chest Pain, Palpitations, Dyspnea on Exertion, Lightheadedness Gastrointestinal: Reports: No Symptoms. Denies: Abdominal Pain (resolved ), Constipation (resolved with BM today), Diarrhea, Nausea (Resolved ), Vomiting Genitourinary: Reports: No Symptoms. Denies: Pain Musculoskeletal: Reports: No Symptoms Skin: Reports: No Symptoms. Denies: Cyanosis Neurological: Reports: Pre-Existing Deficit, Difficulty Walking, Gait Disturbance Psychiatric: Reports: No Symptoms Systems Review Comment:: Patient is pleasantly confused but able to answer most questions - Patient Data Vitals - Most Recent: Last Vital Signs Temp 98.8 F 06/24/19 03:41 Pulse 108 H 06/24/19 03:41 Resp 20 06/24/19 03:41 BP 116/70 06/24/19 03:41 Pulse Ox 92 L 06/24/19 03:41 Weight - Most Recent: 177 lb 3.2 oz I&O - Last 24 Hours: Intake & Output 06/23/19 06/24/19 06/24/19 22:59 06:59 14:59 Intake Total 450 200 Output Total 425 Balance 450 -225 Lab Results Last 24 Hours: Laboratory Results - last 24 hr 06/23/19 06/23/19 06/24/19 Range/Units 11:34 18:29 05:25 WBC 6.12 (3.98-10.04) K/mm3 RBC 2.95 L (3.98-5.22) M/mm3 Hgb 8.3 L 9.5 L 8.0 L D (11.2-15.7) gm/dl Hct 26.0 L 29.3 L 25.0 L (34.1-44.9) % MCV 84.7 (79.4-94.8) fl MCH 27.1 (25.6-32.2) pg MCHC 32.0 L (32.2-35.5) g/dl RDW Std Deviation 51.4 H (36.4-46.3) fL Plt Count 321 (182-369) K/mm3 MPV 9.2 L (9.4-12.3) fl Neut % (Auto) 77.0 H (34.0-71.1) % Lymph % (Auto) 11.1 L (19.3-51.7) % Pope % (Auto) 10.9 (4.7-12.5) % Eos % (Auto) 0.5 L (0.7-5.8) Baso % (Auto) 0.2 (0.1-1.2) % Neut # (Auto) 4.71 (1.56-6.13) K/mm3 Lymph # (Auto) 0.68 L (1.18-3.74) K/mm3 Pope # (Auto) 0.67 H (0.24-0.36) K/mm3 Eos # (Auto) 0.03 L (0.04-0.36) K/mm3 Baso # (Auto) 0.01 (0.01-0.08) K/mm3 Sodium (136-145) mEq/L Potassium (3.5-5.1) mEq/L Chloride (98-107) mEq/L Carbon Dioxide (21-32) mEq/L Anion Gap (5-15) BUN (7-18) mg/dL Creatinine (0.55-1.02) mg/dL Est Cr Clr Drug Dosing mL/min Estimated GFR (MDRD) (>60) mL/min BUN/Creatinine Ratio (14-18) Glucose (83-115) mg/dL Calcium (8.5-10.1) mg/dL Magnesium (1.8-2.4) mg/dl 06/24/19 Range/Units 05:25 WBC (3.98-10.04) K/mm3 RBC (3.98-5.22) M/mm3 Hgb (11.2-15.7) gm/dl Hct (34.1-44.9) % MCV (79.4-94.8) fl MCH (25.6-32.2) pg MCHC (32.2-35.5) g/dl RDW Std Deviation (36.4-46.3) fL Plt Count (182-369) K/mm3 MPV (9.4-12.3) fl Neut % (Auto) (34.0-71.1) % Lymph % (Auto) (19.3-51.7) % Pope % (Auto) (4.7-12.5) % Eos % (Auto) (0.7-5.8) Baso % (Auto) (0.1-1.2) % Neut # (Auto) (1.56-6.13) K/mm3 Lymph # (Auto) (1.18-3.74) K/mm3 Pope # (Auto) (0.24-0.36) K/mm3 Eos # (Auto) (0.04-0.36) K/mm3 Baso # (Auto) (0.01-0.08) K/mm3 Sodium 133 L (136-145) mEq/L Potassium 4.4 (3.5-5.1) mEq/L Chloride 101 (98-107) mEq/L Carbon Dioxide 22 (21-32) mEq/L Anion Gap 14.4 (5-15) BUN 33 H (7-18) mg/dL Creatinine 1.1 H (0.55-1.02) mg/dL Est Cr Clr Drug Dosing 28.78 mL/min Estimated GFR (MDRD) 47 (>60) mL/min BUN/Creatinine Ratio 30.0 H (14-18) Glucose 104 (83-115) mg/dL Calcium 7.9 L (8.5-10.1) mg/dL Magnesium 1.9 (1.8-2.4) mg/dl Med Orders - Current: Current Medications Acetaminophen (Tylenol) 650 mg PO Q6H PRN PRN Reason: Pain Last Admin: 06/23/19 08:04 Dose: 650 mg Hydrocodone Bitart/Acetaminophen ([place] 325-5 Mg) 1 tab PO Q8H PRN PRN Reason: PAIN Last Admin: 06/23/19 17:38 Dose: 1 tab Bisacodyl (Dulcolax) 5 mg PO DAILY PRN PRN Reason: Constipation Calcium Carbonate/Glycine (Tums) 1,000 mg PO Q2HR PRN PRN Reason: Indigestion Last Admin: 06/22/19 11:23 Dose: 1,000 mg Lactulose (Cephulac) 10 gm PO Q12H PRN PRN Reason: CONSTIPATION Metoprolol Tartrate (Lopressor) 12.5 mg PO DAILY [facility] Last Admin: 06/23/19 08:06 Dose: 12.5 mg Mirtazapine (Remeron) 7.5 mg PO BEDTIME [facility] Last Admin: 06/23/19 20:49 Dose: 7.5 mg Ondansetron HCl (Zofran) 4 mg IVPUSH Q8H PRN PRN Reason: Nausea/Vomiting Last Admin: 06/22/19 11:24 Dose: 4 mg Pantoprazole Sodium (Protonix Iv) 40 mg IVPUSH Q12H [facility] Last Admin: 06/24/19 06:36 Dose: 40 mg Aspercreme Lidocaine (76.5 Gm) 0 each TOP TID PRN PRN Reason: Pain Senna/Docusate Sodium (Senna Plus) 1 tab PO BID [facility] Last Admin: 06/23/19 20:49 Dose: 1 tab Sertraline HCl (Zoloft) 75 mg PO DAILY [facility] Last Admin: 06/23/19 08:02 Dose: 75 mg Sodium Chloride (Saline Flush) 10 ml FLUSH ASDIRECTED PRN PRN Reason: Keep Vein Open Last Admin: 06/21/19 19:44 Dose: 10 ml Discontinued Medications Furosemide (Lasix) 20 mg IVPUSH ONETIME ONE Stop: 06/22/19 14:37 Last Admin: 06/22/19 15:28 Dose: 20 mg Sodium Chloride (Normal Saline) 250 mls @ 50 mls/hr IV ASDIRECTED BETH Last Admin: 06/22/19 02:25 Dose: 50 mls/hr Lactated Ringer's (Ringers, Lactated) 1,000 mls @ 50 mls/hr IV ASDIRECTED BETH Last Admin: 06/22/19 00:22 Dose: 50 mls/hr Magnesium Sulfate 2 gm/ Premix 50 mls @ 25 mls/hr IV ONETIME ONE Stop: 06/22/19 11:08 Last Admin: 06/22/19 09:57 Dose: 25 mls/hr - Exam Quality Assessment: DVT Prophylaxis General: Alert, Cooperative, No Acute Distress. No: Oriented HEENT: Pupils Equal, Pupils Reactive, EOMI, Mucous Membr. Moist/[place]oberg Neck: Supple, Trachea Midline Lungs: Clear to Auscultation, Normal Respiratory Effort Cardiovascular: Irregular Rhythm GI/Abdominal Exam: Normal Bowel Sounds, Soft, Non-Tender, No Distention, No Abnormal Bruit (Female) Exam: Deferred Back Exam: Normal Inspection, Full Range of Motion Extremities: Normal Inspection, Normal Range of Motion, Non-Tender, No Pedal Edema, Normal Capillary Refill, Other (Toe touch weight bearing ) Skin: Warm, Dry, Intact Neurological: No New Focal Deficit Psy/Mental Status: Alert Sepsis Event Note - Evaluation Sepsis Screening Result: No Definite Risk - Focused Exam Vital Signs: Vital Signs Temp Pulse Resp BP Pulse Ox 06/24/19 03:41 98.8 F 108 H 20 116/70 92 L 06/23/19 20:55 99.0 F 104 H 18 122/59 L 93 L Date Exam was Performed: 06/24/19 Time Exam was Performed: 10:52 - Problem List & Annotations (1) Status post fracture of femur SNOMED Code(s): 697594112 Code(s): Z87.81 - PERSONAL HISTORY OF (HEALED) TRAUMATIC FRACTURE Status: Acute Priority: High Current Visit: Yes (2) Anemia SNOMED Code(s): 330787805 Code(s): D64.9 - ANEMIA, UNSPECIFIED Status: Acute Priority: High Current Visit: Yes Qualifiers: Anemia type: unspecified type Qualified Code(s): D64.9 - Anemia, unspecified (3) Atrial fibrillation SNOMED Code(s): 27604674 Code(s): I48.91 - UNSPECIFIED ATRIAL FIBRILLATION Status: Chronic Priority: Medium Current Visit: Yes Qualifiers: Atrial fibrillation type: unspecified Qualified Code(s): I48.91 - Unspecified atrial fibrillation (4) Chronic anticoagulation SNOMED Code(s): 521506984 Code(s): Z79.01 - [facility] (CURRENT) USE OF ANTICOAGULANTS Status: Chronic Priority: Medium Current Visit: No (5) Dementia SNOMED Code(s): 36834387 Code(s): F03.90 - UNSPECIFIED DEMENTIA WITHOUT BEHAVIORAL DISTURBANCE Status: Chronic Priority: Medium Current Visit: Yes Qualifiers: Dementia type: unspecified type Dementia behavioral disturbance: without behavioral disturbance Qualified Code(s): F03.90 - Unspecified dementia without behavioral disturbance (6) Rectal bleeding SNOMED Code(s): 66028868 Code(s): K62.5 - HEMORRHAGE OF ANUS AND RECTUM Status: Acute Priority: High Current Visit: Yes (7) Vitamin D deficiency SNOMED Code(s): 47920794 Code(s): E55.9 - VITAMIN D DEFICIENCY, UNSPECIFIED Status: Chronic Priority: Medium Current Visit: No (8) Hiatal hernia 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 esophagitis SNOMED Code(s): 358499746 Code(s): K44.9 - DIAPHRAGMATIC HERNIA WITHOUT OBSTRUCTION OR GANGRENE; K21.9 - GASTRO-ESOPHAGEAL REFLUX DISEASE WITHOUT ESOPHAGITIS Status: Chronic Priority: Medium Current Visit: No - Problem List Review Problem List Initiated/Reviewed/Updated: Yes - My Orders Last 24 Hours: My Active Orders 06/23/19 07:32 Consult to Occupational Therapy [OT Evaluation and Treatment] [CONS] Routine Consult to Physical Therapy [PT Evaluation and Treatment] [CONS] Routine 06/23/19 11:37 Consult to Spiritual Care [CONS] Routine 06/23/19 11:44 Weight bearing status [OM.PC] Routine 06/24/19 11:00 HEMOGLOBIN/HEMATOCRIT,HH [HEME] Routine 06/25/19 05:11 BASIC METABOLIC PANEL,BMP [CHEM] AM CBC WITH AUTO DIFF [HEME] AM MAGNESIUM [CHEM] AM 06/26/19 05:11 BASIC METABOLIC PANEL,BMP [CHEM] AM CBC WITH AUTO DIFF [HEME] AM MAGNESIUM [CHEM] AM 06/27/19 05:11 BASIC METABOLIC PANEL,BMP [CHEM] AM CBC WITH AUTO DIFF [HEME] AM MAGNESIUM [CHEM] AM - Plan Plan:: Rectal bleeding Anemia Abdominal pain Previously on Eliquis prior to past surgery Discontinued on previous admission and discharged on aspirin alone Recently prescribed Eliquis, however did not start taking Found to be hypotensive with BRBPR in group home Positive LYNETTE in the ED Had BM today with apparent old blood in it PLAN - Scheduled pantoprazole BID - Hold ASA - Transfuse when indicated - Repeat hemoglobin today at 1100, tonight at 1800 - Consult surgery - Dr. Lazar - Per Dr. Lazar, consider Abdominal/pelvis CTA if Hgb has dropped Atrial fibrillation Rate controlled Continue home medications PLAN - Monitor VS - Continue home meds Dementia No acute issues PLAN - Let me sleep protocol PROPHYLAXIS DVT- TANISHA GI- pantoprazole CODE STATUS: DNR DNI DISPOSITION: Patient was admitted to the ICU and subsequently transferred to the floor once she became more stable. Family is reportedly working on getting patient placed in [facility] to be closer to family. LOS >96 hr due to continued GI bleeding, variable hemoglobin
[2019-06-24] MEDS: Acetaminophen/HYDROcodone 325-5 MG Tab PO PRN ×2 (08:02→17:31)
[2019-06-24] MEDS: Metoprolol Tartrate 25 MG Tab PO SCH (08:11)
[2019-06-24] MEDS: Sertraline 50 MG Tab PO SCH (08:13)
--- NOTE | 2019-06-24 08:47 | PCM.CONS ---
H&P History of Present Illness - General Date of Service: 06/24/19 Admit Problem/Dx: Admission Diagnosis/Problem Admission Diagnosis/Problem Gastrointestinal hemorrhage Source of Information: Patient, Provider History Limitations: Reports: Altered Mental Status - History of Present Illness Initial Comments - Free Text/Narative: 88 yo woman with dementia, living in senior care, presents with GI bleed/ bright red blood per rectum. She recently had a fall and femur fracture, but is currently not on any antiplatelet or anticoagulation medication other than 81 mg aspirin. She has no known history of diverticular disease. She has had colonoscopy in the past but the details are not currently available. She has multiple abdominal surgical scars including a large right subcostal and a lower midline. She is DNR. Abdomen Pain Score (Numeric/FACES): 2 - Related Data Allergies/Adverse Reactions: Allergies Allergy/AdvReac Type Severity Reaction Status Date / Time aloe vera Allergy Rash Verified 06/21/19 18:30 Home Medications: Home Meds Celecoxib 200 mg PO DAILY 06/11/19 [History] Cholecalciferol (Vitamin D3) [Vitamin D3] 1,000 unit PO DAILY 06/11/19 [History] Ferrous Sulfate 325 mg PO MOWEFR 06/11/19 [History] Mirtazapine 7.5 mg PO BEDTIME 06/11/19 [History] Sertraline [Zoloft] 75 mg PO DAILY 06/11/19 [History] bisacodyL [Dulcolax] 5 mg PO DAILY PRN 06/11/19 [History] Hydrocodone/Acetaminophen [[place] 5-325 Tablet] 1 each PO Q8H PRN #15 tablet [Rx] Lactulose 10 gm PO Q12HR PRN #10 packet 06/16/19 [Rx] Metoprolol Tartrate 12.5 mg PO DAILY #15 tablet 06/16/19 [Rx] Sennosides/Docusate Sodium [Senna Plus 8.6-50 mg Softgel] 1 each PO BID #14 capsule 06/16/19 [Rx] amLODIPine Besylate [Amlodipine Besylate] 10 mg PO DAILY #30 tablet 06/16/19 [Rx ] Acetaminophen [Tylenol] 650 mg PO Q6H 06/21/19 [History] Apixaban [Eliquis] 2.5 mg PO BID 06/21/19 [History] Ascorbate Calcium [Vitamin C] 500 mg PO MOWEFR 06/21/19 [History] Lidocaine HCl [Aspercreme] 76.5 gm TP TID PRN 06/21/19 [History] Aspirin [Ecotrin EC] 81 mg PO BEDTIME 06/23/19 [History] Past Medical History HEENT History: Reports: Other (See Below) Other HEENT History: has no teeth. Cardiovascular History: Reports: Afib Gastrointestinal History: Reports: GERD Genitourinary History: Reports: UTI, Recurrent [employer]CH[employer]ICIAN History: Reports: Musculoskeletal History: Reports: Arthritis, Other (See Below) Other Musculoskeletal History: Unilateral osteoarthritis of L hip. left femur fractur Neurological History: Reports: Other (See Below) Other Neuro History: dementia--pt resides in memory care facility Psychiatric History: Reports: Dementia Hematologic History: Reports: Anemia Other Hematologic History: Vitamin D deficiency - Past Surgical History HEENT Surgical History: Reports: Tonsillectomy GI Surgical History: Reports: Appendectomy, Cholecystectomy Social & Family History - Family History Family Medical History: Noncontributory - Tobacco Use Smoking Status *Q: Never Smoker - Caffeine Use Caffeine Use: Reports: Tea - Recreational Drug Use Recreational Drug Use: No H&P Review of Systems - Review of Systems: Review Of Systems: See Below General: Reports: Weakness, Fatigue HEENT: Reports: No Symptoms Pulmonary: Reports: No Symptoms Cardiovascular: Reports: No Symptoms Gastrointestinal: Reports: Abdominal Pain, Bloody Stool Genitourinary: Reports: No Symptoms Skin: Reports: Bruising Psychiatric: Reports: Confusion Neurological: Reports: Confusion, Weakness Hematologic/Lymphatic: Reports: Anemia Immunologic: Reports: No Symptoms Exam - Exam Exam: See Below - Vital Signs Vital Signs: Last Vital Signs Temp 37.1 C 06/24/19 03:41 Pulse 89 06/24/19 08:11 Resp 20 06/24/19 03:41 BP 117/56 L 06/24/19 08:11 Pulse Ox 92 L 06/24/19 03:41 Weight: 80.377 kg - Exam General: Alert, Cooperative HEENT: Conjunctiva Clear Neck: Trachea Midline Lungs: Clear to Auscultation, Normal Respiratory Effort Cardiovascular: Regular Rate GI/Abdominal Exam: Soft, Distended, Other (tympanitic abdomen, minimally tender , no masses) (Female) Exam: Deferred Rectal (Female) Exam: Deferred (deferred for now, patient is sitting in chair and not easily moved without assistance) Skin: Dry Neuro Extensive - Mental Status: Memory Loss-Remote Events Psychiatric: Alert, Normal Affect - Patient Data Lab Results Last 24 hrs: Laboratory Results - last 24 hr 06/23/19 06/23/19 06/24/19 Range/Units 11:34 18:29 05:25 WBC 6.12 (3.98-10.04) K/mm3 RBC 2.95 L (3.98-5.22) M/mm3 Hgb 8.3 L 9.5 L 8.0 L D (11.2-15.7) gm/dl Hct 26.0 L 29.3 L 25.0 L (34.1-44.9) % MCV 84.7 (79.4-94.8) fl MCH 27.1 (25.6-32.2) pg MCHC 32.0 L (32.2-35.5) g/dl RDW Std Deviation 51.4 H (36.4-46.3) fL Plt Count 321 (182-369) K/mm3 MPV 9.2 L (9.4-12.3) fl Neut % (Auto) 77.0 H (34.0-71.1) % Lymph % (Auto) 11.1 L (19.3-51.7) % [place] % (Auto) 10.9 (4.7-12.5) % Eos % (Auto) 0.5 L (0.7-5.8) Baso % (Auto) 0.2 (0.1-1.2) % Neut # (Auto) 4.71 (1.56-6.13) K/mm3 Lymph # (Auto) 0.68 L (1.18-3.74) K/mm3 [place]kins # (Auto) 0.67 H (0.24-0.36) K/mm3 Eos # (Auto) 0.03 L (0.04-0.36) K/mm3 Baso # (Auto) 0.01 (0.01-0.08) K/mm3 Sodium (136-145) mEq/L Potassium (3.5-5.1) mEq/L Chloride (98-107) mEq/L Carbon Dioxide (21-32) mEq/L Anion Gap (5-15) BUN (7-18) mg/dL Creatinine (0.55-1.02) mg/dL Est Cr Clr Drug Dosing mL/min Estimated GFR (MDRD) (>60) mL/min BUN/Creatinine Ratio (14-18) Glucose (83-115) mg/dL Calcium (8.5-10.1) mg/dL Magnesium (1.8-2.4) mg/dl 06/24/19 Range/Units 05:25 WBC (3.98-10.04) K/mm3 RBC (3.98-5.22) M/mm3 Hgb (11.2-15.7) gm/dl Hct (34.1-44.9) % MCV (79.4-94.8) fl MCH (25.6-32.2) pg MCHC (32.2-35.5) g/dl RDW Std Deviation (36.4-46.3) fL Plt Count (182-369) K/mm3 MPV (9.4-12.3) fl Neut % (Auto) (34.0-71.1) % Lymph % (Auto) (19.3-51.7) % [place] % (Auto) (4.7-12.5) % Eos % (Auto) (0.7-5.8) Baso % (Auto) (0.1-1.2) % Neut # (Auto) (1.56-6.13) K/mm3 Lymph # (Auto) (1.18-3.74) K/mm3 [place] # (Auto) (0.24-0.36) K/mm3 Eos # (Auto) (0.04-0.36) K/mm3 Baso # (Auto) (0.01-0.08) K/mm3 Sodium 133 L (136-145) mEq/L Potassium 4.4 (3.5-5.1) mEq/L Chloride 101 (98-107) mEq/L Carbon Dioxide 22 (21-32) mEq/L Anion Gap 14.4 (5-15) BUN 33 H (7-18) mg/dL Creatinine 1.1 H (0.55-1.02) mg/dL Est Cr Clr Drug Dosing 28.78 mL/min Estimated GFR (MDRD) 47 (>60) mL/min BUN/Creatinine Ratio 30.0 H (14-18) Glucose 104 (83-115) mg/dL Calcium 7.9 L (8.5-10.1) mg/dL Magnesium 1.9 (1.8-2.4) mg/dl Result Diagrams: 06/24/19 05:25 06/24/19 05:25 Sepsis Event Note - Evaluation Sepsis Screening Result: No Definite Risk - Focused Exam Vital Signs: Vital Signs Temp Pulse Resp BP Pulse Ox 06/24/19 08:11 89 117/56 L 06/24/19 03:41 37.1 C 108 H 20 116/70 92 L 06/23/19 20:55 37.2 C 104 H 18 122/59 L 93 L Date Exam was Performed: 06/24/19 Time Exam was Performed: 08:41 Consult PN Assessment/Plan Procedures: Procedures ASSAY OF MAGNESIUM (06/11/19) ASSAY OF PHOSPHORUS (06/11/19) BLOOD TRANSFUSION SERVICE (06/11/19) BLOOD TYPING SEROLOGIC ABO (06/11/19) BLOOD TYPING SEROLOGIC RH(D) (06/11/19) BODY FLUID CELL COUNT (06/11/19) COMPATIBILITY TEST ANTIGLOB (06/11/19) COMPLETE CBC AUTOMATED (06/11/19) COMPLETE CBC W/AUTO DIFF WBC (06/11/19) COMPREHEN METABOLIC PANEL (06/11/19) CT HEAD/BRAIN W/O DYE (06/11/19) CULTURE OTHR SPECIMN AEROBIC (06/11/19) EXAM SYNOVIAL FLUID CRYSTALS (06/11/19) HEMATOCRIT (06/11/19) METABOLIC PANEL TOTAL CA (06/11/19) MR-STAPH DNA AMP PROBE (06/11/19) OT EVAL LOW COMPLEX 30 MIN (06/11/19) PROTHROMBIN TIME (06/11/19) PT EVAL MOD COMPLEX 30 MIN (06/11/19) RBC ANTIBODY SCREEN (06/11/19) ROUTINE VENIPUNCTURE (06/11/19) SMEAR GRAM STAIN (06/11/19) SPEECH SOUND LANG COMPREHEN (06/11/19) THERAPEUTIC ACTIVITIES (06/11/19) THERAPEUTIC EXERCISES (06/11/19) US COMPL JOINT R-T W/IMG (06/11/19) US URINE CAPACITY MEASURE (06/11/19) X-RAY EXAM OF KNEE 1 OR 2 (06/11/19) X-RAY EXAM OF SHOULDER (06/11/19) Problem List Initiated/Reviewed/Updated: Yes Plan: Hgb has hovered around 9 g/dL since admission, fluctuating up an down after a single transfusion a few days ago. No BM for a few days now. Due for another hemoglobin check at 11 AM- if a significant drop is noted, this would be indicative of active hemorrhage and would be a good time to get a CT angiogram to help determine the source of the GI bleed. Differential at this point includes colorectal malignancy, diverticular bleed, AV malformation, hemorrhoidal disease. Requesting Provider: Hospitalist team Date Consult Requested: 06/24/19 Reason for Consult: GI bleed Patient History Reviewed: Yes Admission H&P Reviewed: Yes Consult Result/Summary:: Recheck Hgb in a few hours, if active hemorrhage is evident plan for CT angiogram to localize. Notified Requestor: Yes Time Spent (in minutes): 30
[2019-06-24] MEDS ORDERED: Bisacodyl 10 MG Supp RECTAL ONE (08:54)
[2019-06-24] MEDS: Ondansetron 4 MG/2 ML SDV IVPUSH PRN (09:12)
[2019-06-24] MEDS ORDERED: Iopamidol 755 MG/ML 50 ML Bottle IVPUSH ONE (12:54)
[2019-06-24] MEDS ORDERED: Iopamidol 755 Mg/ML 100 ML Bottle IVPUSH ONE (12:54)
[2019-06-24] MEDS: Sodium Chloride 0.9% 100 ML IV ONE ×2 (13:35→13:52)
[2019-06-24] MEDS ORDERED: Sodium Chloride 0.9% 250 ML IV SCH (13:45)
--- NOTE | 2019-06-24 14:34 | CT ---
This study was dictated as part of previous abdominal angiogram CT. Not mentioned on previous report is that the appendix is not visualized.
--- NOTE | 2019-06-24 14:34 | CT ---
CT abdomen and pelvis Technique: Multiple axial sections were obtained from above the dome of the diaphragm inferiorly through the pubic symphysis. Intravenous contrast was utilized. Study performed in the arterial phase for arterial angiogram. Delayed images were also obtained through the abdomen and pelvis. Findings: Bilateral pleural effusions are seen which are small on the left side and small to moderate on the right side. Pleural effusions causes bibasilar atelectasis. Intrahepatic biliary air is noted. Several low density lesions are seen within the liver most likely due to small cysts. Largest cyst has Hounsfield unit measurements compatible with cyst and measures 1.3 cm. Spleen appears within normal limits. Adrenal glands not well seen but show no discrete nodule. Kidneys show symmetric contrast enhancement. Parapelvic cysts are noted within both kidneys. Several cortical cyst are noted within the left kidney. Aorta shows ectasia without aneurysm. Atherosclerotic calcification is noted at the origin of both renal arteries. Atherosclerotic change is noted at the origin of the celiac access and superior mesenteric artery. No discrete focal stenosis is seen. Inferior mesenteric artery appears patent. Both external and internal iliac arteries are patent. Common iliac arteries are patent. No pelvic mass or adenopathy is seen. No retroperitoneal adenopathy is seen. Fat-containing bilateral inguinal hernias are noted. Diverticuli are seen throughout the sigmoid colon. Delayed images shows contrast excretion into both ureters and bladder. No contrast extravasation is seen on delayed images. Impression: 1. Bilateral pleural effusions with bibasilar atelectasis. 2. Parapelvic cysts and cortical cysts within the kidneys. Liver cysts also felt to be present. 3. Intrahepatic biliary air presumably from previous biliary intervention. 4. Atherosclerotic change as noted above. No focal stenosis within the aorta or branch vessels. 5. Delayed images shows no contrast extravasation. 6. Other findings as noted above believed to be incidental. Diagnostic code #2 This report was dictated in [place] Standard Time
[2019-06-24] MEDS ORDERED: diphenhydrAMINE 50 MG/ML SDV IVPUSH ONE (17:38)
[2019-06-24] MEDS: Acetaminophen 325 MG Tab PO PRN (17:46)
[2019-06-24] MEDS: Mirtazapine 15 MG Tab PO SCH (19:51)
[2019-06-25] MEDS: Acetaminophen 325 MG Tab PO PRN (04:44)
[2019-06-25] MEDS: Mirtazapine 15 MG Tab PO SCH ×2 (06:01→20:05)
[2019-06-25] MEDS: Pantoprazole 40 MG Vial IVPUSH SCH ×2 (07:48→18:38)
[2019-06-25] MEDS: Sertraline 50 MG Tab PO SCH (08:50)
--- NOTE | 2019-06-25 08:57 | PCM.SN ---
- Free Text/Narrative Note: This note is intentionally very brief because [employer] closes out notes without saving while I am in the middle of writing them. Responded well to 1 u pRBC in terms of Hgb, but had low grade fever so complete transfusion was aborted. CT scan non-diagnostic, noted pneumobilia which is odd in patient without instrumentation signs of cholangitis. VSS. 1 bloody BM this morning. A/P: GI bleed in patient with advanced dementia living in correction with limited mobility after femur fracture from fall recently. I started discussions of goals of care with patient, because if she has a problem potentially treatable with a major emergency surgical operation, she is at high risk for complication given her frailty. Her quality of life may diminish substantially after surgery, and I think it is appropriate to clarify things with patient and family about aggressive treatment vs comfort measures/ hospice.
[2019-06-25] MEDS: Metoprolol Tartrate 25 MG Tab PO SCH (10:58)
--- NOTE | 2019-06-25 11:11 | PCM.PN ---
- General Info Date of Service: 06/25/19 Admission Dx/Problem (Free Text): Admission Diagnosis/Problem Admission Diagnosis/Problem Gastrointestinal hemorrhage Subjective Update: Josseline continues to have black watery stools. Last night after her first unit of packed red blood cells she developed a low-grade fever up to 101. The second transfusion was held until this morning. It appears that it was a febrile nonhemolytic transfusion reaction versus new infection. Chest x-ray done this morning showed bibasilar atelectasis with a confluence in the right base possibly pneumonia versus pleural effusion. White count is normal today. I spoke with her, her sister Jayla, and her son Norm and explained to them that with the finding of the CT exam showing air in the intrahepatic biliary system and no explanation for her blood loss that it would make surgical intervention difficult. Patient would have extremely difficult time being extubated and if this is a developing pneumonia would make it even more difficult. Nursing also reports that her blood pressure has started to decrease which could be secondary to hypovolemia versus possibly sepsis if this is a pneumonia. Pneumonia is unlikely with the normal white count, but it is in the differential. Patient states that she does not want aggressive treatment and, "if I I ." Patient's sister states that she has said several times in the past and most recently as 3 months ago that she does not want her life prolonged if she develops a serious illness. I confirmed this with her son Norm. I did try to get a hold of her oldest daughter, which she is estranged from, Jayla Florence and was unable to do so at the number given. ([phone]) phone rang and there was no voicemail. Functional Status: Reports: Pain Controlled - Review of Systems General: Reports: No Symptoms HEENT: Reports: No Symptoms Pulmonary: Reports: No Symptoms Cardiovascular: Reports: No Symptoms Gastrointestinal: Reports: No Symptoms Genitourinary: Reports: No Symptoms - Patient Data Vitals - Most Recent: Last Vital Signs Temp 98.5 F 06/25/19 11:02 Pulse 92 06/25/19 11:02 Resp 17 06/25/19 11:02 BP 100/46 L 06/25/19 11:02 Pulse Ox 94 L 06/25/19 11:02 Weight - Most Recent: 177 lb I&O - Last 24 Hours: Intake & Output 06/24/19 06/25/19 06/25/19 22:59 06:59 14:59 Intake Total 360 400 536 Output Total 550 325 Balance -190 75 536 Lab Results Last 24 Hours: Laboratory Results - last 24 hr 06/21/19 06/24/19 06/24/19 Range/Units 18:30 11:31 18:04 WBC (3.98-10.04) K/mm3 RBC (3.98-5.22) M/mm3 Hgb 6.5 L* D (11.2-15.7) gm/dl Hct 20.6 L (34.1-44.9) % MCV (79.4-94.8) fl MCH (25.6-32.2) pg MCHC (32.2-35.5) g/dl RDW Std Deviation (36.4-46.3) fL Plt Count (182-369) K/mm3 MPV (9.4-12.3) fl Neut % (Auto) (34.0-71.1) % Lymph % (Auto) (19.3-51.7) % [place] % (Auto) (4.7-12.5) % Eos % (Auto) (0.7-5.8) Baso % (Auto) (0.1-1.2) % Neut # (Auto) (1.56-6.13) K/mm3 Lymph # (Auto) (1.18-3.74) K/mm3 [place] # (Auto) (0.24-0.36) K/mm3 Eos # (Auto) (0.04-0.36) K/mm3 Baso # (Auto) (0.01-0.08) K/mm3 Manual Slide Review Sodium (136-145) mEq/L Potassium (3.5-5.1) mEq/L Chloride (98-107) mEq/L Carbon Dioxide (21-32) mEq/L Anion Gap (5-15) BUN (7-18) mg/dL Creatinine (0.55-1.02) mg/dL Est Cr Clr Drug Dosing mL/min Estimated GFR (MDRD) (>60) mL/min BUN/Creatinine Ratio (14-18) Glucose (83-115) mg/dL Calcium (8.5-10.1) mg/dL Magnesium (1.8-2.4) mg/dl Urine Color (Yellow) Urine Appearance (Clear) Urine pH (5.0-8.0) Ur Specific [place] (1.005-1.030) Urine Protein (Negative) Urine Glucose (UA) (Negative) Urine Ketones (Negative) Urine Occult Blood (Negative) Urine Nitrite (Negative) Urine Bilirubin (Negative) Urine Urobilinogen (0.2-1.0) Ur Leukocyte Esterase (Negative) Urine RBC (0-5) /hpf Urine WBC (0-5) /hpf Ur Squamous Epith Cells (0-5) /hpf Urine Bacteria (FEW) /hpf Urine Mucus (FEW) /hpf Blood Type A POSITIVE Gel Antibody Screen Negative Crossmatch See Detail See Detail Tx Rx Implicated Unit 1 [id number] Unit 1 Component Prbc Tx React Review Date 06/24/19 Reaction Clerical Check Acceptable Pre-Trans Vis Hemolysis Negative Pre-Trans Icterus Negative Post-Trans Blood Type A positive Post-Tx Visible Hemolys Negative Post-Trans Icterus Negative Post-Trans NICK IgG Negative Reaction Interpretation See comment Reaction Pathol Review Jorge ward 06/24/19 06/25/19 06/25/19 Range/Units 18:40 04:50 05:45 WBC 5.84 (3.98-10.04) K/mm3 RBC 2.68 L (3.98-5.22) M/mm3 Hgb 7.8 L 7.4 L (11.2-15.7) gm/dl Hct 24.1 L 23.1 L (34.1-44.9) % MCV 86.2 (79.4-94.8) fl MCH 27.6 (25.6-32.2) pg MCHC 32.0 L (32.2-35.5) g/dl RDW Std Deviation 52.2 H (36.4-46.3) fL Plt Count 264 (182-369) K/mm3 MPV 9.1 L (9.4-12.3) fl Neut % (Auto) 75.6 H (34.0-71.1) % Lymph % (Auto) 14.2 L (19.3-51.7) % [place] % (Auto) 9.4 (4.7-12.5) % Eos % (Auto) 0.2 L (0.7-5.8) Baso % (Auto) 0.3 (0.1-1.2) % Neut # (Auto) 4.41 (1.56-6.13) K/mm3 Lymph # (Auto) 0.83 L (1.18-3.74) K/mm3 [place] # (Auto) 0.55 H (0.24-0.36) K/mm3 Eos # (Auto) 0.01 L (0.04-0.36) K/mm3 Baso # (Auto) 0.02 (0.01-0.08) K/mm3 Manual Slide Review Abnormal smear Sodium (136-145) mEq/L Potassium (3.5-5.1) mEq/L Chloride (98-107) mEq/L Carbon Dioxide (21-32) mEq/L Anion Gap (5-15) BUN (7-18) mg/dL Creatinine (0.55-1.02) mg/dL Est Cr Clr Drug Dosing mL/min Estimated GFR (MDRD) (>60) mL/min BUN/Creatinine Ratio (14-18) Glucose (83-115) mg/dL Calcium (8.5-10.1) mg/dL Magnesium (1.8-2.4) mg/dl Urine Color Yellow (Yellow) Urine Appearance Clear (Clear) Urine pH 6.0 (5.0-8.0) Ur Specific [place] 1.020 (1.005-1.030) Urine Protein Negative (Negative) Urine Glucose (UA) Negative (Negative) Urine Ketones Negative (Negative) Urine Occult Blood Trace-lysed H (Negative) Urine Nitrite Negative (Negative) Urine Bilirubin Negative (Negative) Urine Urobilinogen 0.2 (0.2-1.0) Ur Leukocyte Esterase Negative (Negative) Urine RBC 0-5 (0-5) /hpf Urine WBC 0-5 (0-5) /hpf Ur Squamous Epith Cells 0-5 (0-5) /hpf Urine Bacteria Not seen (FEW) /hpf Urine Mucus Not seen (FEW) /hpf Blood Type Gel Antibody Screen Crossmatch Tx Rx Implicated Unit 1 Unit 1 Component Tx React Review Date Reaction Clerical Check Pre-Trans Vis Hemolysis Pre-Trans Icterus Post-Trans Blood Type Post-Tx Visible Hemolys Post-Trans Icterus Post-Trans NICK IgG Reaction Interpretation Reaction Pathol Review 06/25/19 06/25/19 Range/Units 05:45 05:45 WBC (3.98-10.04) K/mm3 RBC (3.98-5.22) M/mm3 Hgb (11.2-15.7) gm/dl Hct (34.1-44.9) % MCV (79.4-94.8) fl MCH (25.6-32.2) pg MCHC (32.2-35.5) g/dl RDW Std Deviation (36.4-46.3) fL Plt Count (182-369) K/mm3 MPV (9.4-12.3) fl Neut % (Auto) (34.0-71.1) % Lymph % (Auto) (19.3-51.7) % [place] % (Auto) (4.7-12.5) % Eos % (Auto) (0.7-5.8) Baso % (Auto) (0.1-1.2) % Neut # (Auto) (1.56-6.13) K/mm3 Lymph # (Auto) (1.18-3.74) K/mm3 [place] # (Auto) (0.24-0.36) K/mm3 Eos # (Auto) (0.04-0.36) K/mm3 Baso # (Auto) (0.01-0.08) K/mm3 Manual Slide Review Sodium 135 L (136-145) mEq/L Potassium 4.6 (3.5-5.1) mEq/L Chloride 102 (98-107) mEq/L Carbon Dioxide 24 (21-32) mEq/L Anion Gap 13.6 (5-15) BUN 33 H (7-18) mg/dL Creatinine 1.1 H (0.55-1.02) mg/dL Est Cr Clr Drug Dosing 28.78 mL/min Estimated GFR (MDRD) 47 (>60) mL/min BUN/Creatinine Ratio 30.0 H (14-18) Glucose 101 (83-115) mg/dL Calcium 7.5 L (8.5-10.1) mg/dL Magnesium 1.9 (1.8-2.4) mg/dl Urine Color (Yellow) Urine Appearance (Clear) Urine pH (5.0-8.0) Ur Specific [place] (1.005-1.030) Urine Protein (Negative) Urine Glucose (UA) (Negative) Urine Ketones (Negative) Urine Occult Blood (Negative) Urine Nitrite (Negative) Urine Bilirubin (Negative) Urine Urobilinogen (0.2-1.0) Ur Leukocyte Esterase (Negative) Urine RBC (0-5) /hpf Urine WBC (0-5) /hpf Ur Squamous Epith Cells (0-5) /hpf Urine Bacteria (FEW) /hpf Urine Mucus (FEW) /hpf Blood Type A POSITIVE Gel Antibody Screen Negative Crossmatch See Detail Tx Rx Implicated Unit 1 Unit 1 Component Tx React Review Date Reaction Clerical Check Pre-Trans Vis Hemolysis Pre-Trans Icterus Post-Trans Blood Type Post-Tx Visible Hemolys Post-Trans Icterus Post-Trans NICK IgG Reaction Interpretation Reaction Pathol Review Med Orders - Current: Current Medications Acetaminophen (Tylenol) 650 mg PO Q6H PRN PRN Reason: Pain Last Admin: 06/25/19 04:44 Dose: 650 mg Hydrocodone Bitart/Acetaminophen ([place] 325-5 Mg) 1 tab PO Q8H PRN PRN Reason: PAIN Last Admin: 06/24/19 17:31 Dose: 1 tab Bisacodyl (Dulcolax) 5 mg PO DAILY PRN PRN Reason: Constipation Calcium Carbonate/Glycine (Tums) 1,000 mg PO Q2HR PRN PRN Reason: Indigestion Last Admin: 06/22/19 11:23 Dose: 1,000 mg Sodium Chloride (Normal Saline) 250 mls @ 25 mls/hr IV ASDIRECTED [facility] Lactulose (Cephulac) 10 gm PO Q12H PRN PRN Reason: CONSTIPATION Metoprolol Tartrate (Lopressor) 12.5 mg PO DAILY [facility] Last Admin: 06/25/19 10:58 Dose: 12.5 mg Mirtazapine (Remeron) 7.5 mg PO BEDTIME [facility] Last Admin: 06/25/19 06:01 Dose: Not Given Ondansetron HCl (Zofran) 4 mg IVPUSH Q8H PRN PRN Reason: Nausea/Vomiting Last Admin: 06/24/19 09:12 Dose: 4 mg Pantoprazole Sodium (Protonix Iv) 40 mg IVPUSH Q12H [facility] Last Admin: 06/25/19 07:48 Dose: 40 mg Aspercreme Lidocaine (76.5 Gm) 0 each TOP TID PRN PRN Reason: Pain Senna/Docusate Sodium (Senna Plus) 1 tab PO BID [facility] Last Admin: 06/25/19 08:51 Dose: 1 tab Sertraline HCl (Zoloft) 75 mg PO DAILY [facility] Last Admin: 06/25/19 08:50 Dose: 75 mg Sodium Chloride (Saline Flush) 10 ml FLUSH ASDIRECTED PRN PRN Reason: Keep Vein Open Last Admin: 06/21/19 19:44 Dose: 10 ml Discontinued Medications Bisacodyl (Dulcolax) 10 mg RECTAL ONETIME ONE Stop: 06/24/19 08:55 Last Admin: 06/24/19 09:12 Dose: 10 mg Diphenhydramine HCl (Benadryl) 25 mg IVPUSH ONETIME ONE Stop: 06/24/19 17:39 Last Admin: 06/24/19 17:47 Dose: 25 mg Furosemide (Lasix) 20 mg IVPUSH ONETIME ONE Stop: 06/22/19 14:37 Last Admin: 06/22/19 15:28 Dose: 20 mg Sodium Chloride (Normal Saline) 250 mls @ 50 mls/hr IV ASDIRECTED [facility] Last Admin: 06/22/19 02:25 Dose: 50 mls/hr Lactated Ringer's (Ringers, Lactated) 1,000 mls @ 50 mls/hr IV ASDIRECTED [facility] Last Admin: 06/22/19 00:22 Dose: 50 mls/hr Magnesium Sulfate 2 gm/ Premix 50 mls @ 25 mls/hr IV ONETIME ONE Stop: 06/22/19 11:08 Last Admin: 06/22/19 09:57 Dose: 25 mls/hr Sodium Chloride (Normal Saline) 100 mls @ 4 mls/sec IV ONETIME ONE Stop: 06/24/19 12:55 Last Admin: 06/24/19 13:52 Dose: 4 mls/sec Iopamidol (Isovue-370 (76%)) 100 ml IVPUSH ONETIME ONE Stop: 06/24/19 12:55 Last Admin: 06/24/19 13:34 Dose: 100 ml Iopamidol (Isovue-370 (76%)) 40 ml IVPUSH ONETIME ONE Stop: 06/24/19 12:55 Last Admin: 06/24/19 13:34 Dose: 40 ml - Exam Quality Assessment: Supplemental Oxygen General: Alert. No: Oriented (Disoriented to place and time) HEENT: Pupils Equal Neck: Supple Lungs: Normal Respiratory Effort, Decreased Breath Sounds, Crackles Cardiovascular: Regular Rate, Irregular Rhythm GI/Abdominal Exam: Normal Bowel Sounds, Soft, Tender (Diffuse tenderness with no guarding) Extremities: Pedal Edema (Mild 1+) Skin: Warm, Dry, Intact Psy/Mental Status: Other (Confused) Sepsis Event Note - Evaluation Sepsis Screening Result: Sepsis Risk - Focused Exam Vital Signs: Vital Signs Temp Temp Pulse Pulse Resp BP BP 06/25/19 11:02 98.5 F 92 17 100/46 L 06/25/19 10:58 107 H 95/59 L 06/25/19 10:48 97.2 F 93 18 95/59 L 06/25/19 10:47 97.2 F 93 18 95/59 L 06/25/19 10:32 98.4 F 88 17 89/41 L 06/25/19 10:16 98.4 F 88 17 89/41 L 06/25/19 08:02 109 H 06/25/19 08:00 100.0 F 103 H 20 98/53 L 06/25/19 05:39 06/25/19 04:44 100.8 F H 06/25/19 03:00 100.8 F H 108 H 20 BP Pulse Ox Pulse Ox 06/25/19 11:02 94 L 06/25/19 10:58 06/25/19 10:48 94 L 06/25/19 10:47 95 06/25/19 10:32 92 L 06/25/19 10:16 92 L 06/25/19 08:02 92 L 06/25/19 08:00 90 L 06/25/19 05:39 91 L 06/25/19 04:44 06/25/19 03:00 133/64 92 L Date Exam was Performed: 06/25/19 Time Exam was Performed: 13:05 - Problem List Review Problem List Initiated/Reviewed/Updated: Yes - My Orders Last 24 Hours: My Active Orders 06/24/19 15:08 Communication Order [RC] ASDIRECTED 06/24/19 16:45 EKG 12 Lead [EK] Routine 06/24/19 17:01 Oxygen Therapy [RC] ASDIRECTED 06/25/19 07:06 CXR [Chest 1V Frontal] [CR] Routine 06/25/19 08:42 Transfuse Red Blood Cells [COMM] Routine 06/25/19 Breakfast Mechanical Soft Diet [DIET] - Plan Plan:: Rectal bleeding Anemia Abdominal pain Previously on Eliquis prior to past surgery Discontinued on previous admission and discharged on aspirin alone Recently prescribed Eliquis, however did not start taking Found to be hypotensive with BRBPR in halfway Positive LYNETTE in the ED Had BM today with apparent old blood in it PLAN - Scheduled pantoprazole BID - Hold ASA - Transfuse 1 unit packed red blood cells today and recheck hemoglobin Fever post transfusion likely febrile nonhemolytic transfusion reaction Possible fluid overload versus pneumonia Hypotension Atrial fibrillation Rate controlled Continue home medications PLAN - Monitor VS It appears that it was a febrile nonhemolytic transfusion reaction versus new infection. Chest x-ray done this morning showed bibasilar atelectasis with a confluence in the right base possibly pneumonia versus pleural effusion. White count is normal today. I spoke with her, her sister Jayla, and her son Norm and explained to them that with the finding of the CT exam showing air in the intrahepatic biliary system and no explanation for her blood loss that it would make surgical intervention difficult. Patient would have extremely difficult time being extubated and if this is a developing pneumonia would make it even more difficult. Nursing also reports that her blood pressure has started to decrease which could be secondary to hypovolemia versus possibly sepsis if this is a pneumonia. Pneumonia is unlikely with the normal white count, but it is in the differential. Patient states that she does not want aggressive treatment and, "if I I ." Patient's sister states that she has said several times in the past and most recently as 3 months ago that she does not want her life prolonged if she develops a serious illness. I confirmed this with her son Norm. I did try to get a hold of her oldest daughter, which she is estranged from, Jayla Florence and was unable to do so at the number given. ([phone]) phone rang and there was no voicemail. At this time I am going to treat the patient with comfort care based on her wishes. At this time without a white count and only a low-grade fever it is unlikely that this chest x-ray finding is a pneumonia. Also, if it were a pneumonia treatment would only prolong her suffering if she continues to bleed. I will give her a low dose of Lasix to help decrease some fluid overload that could cause dyspnea. Continue to monitor today for recurrent bleeding and fever. Dementia No acute issues PLAN - Let me sleep protocol PROPHYLAXIS DVT- TANISHA GI- pantoprazole CODE STATUS: DNR DNI DISPOSITION: Patient was admitted to the ICU and subsequently transferred to the floor once she became more stable. Family is reportedly working on getting patient placed in [facility] to be closer to family. LOS >96 hr due to continued GI bleeding, variable hemoglobin
--- NOTE | 2019-06-25 11:49 | CR ---
Chest: Portable view of the chest was obtained. Comparison: Previous CT abdomen angiogram of the abdomen and pelvis partially showing the chest dated 06/24/19 and chest x-ray of 06/22/19. Parenchymal density within the right lung base is seen compatible with pleural effusion and probable atelectasis. Atelectasis is also noted within the left retrocardiac region. Heart is enlarged. Prior CT study showed a cystic area within the upper right chest not mentioned on previous report measuring 5.7 cm which likely represents fluid coming off the right shoulder joint. Scoliosis is noted within the spine. Chronic rotator cuff tears are noted within both shoulders. Upper mediastinum is prominent in size which is a stable finding. Impression: 1. Bibasilar atelectasis and right-sided pleural effusion. 2. Cardiomegaly. 3. Chronic rotator cuff tears within both shoulders. Large fluid-filled collection is partially visualized on previous CT exam off the inferior right shoulder most likely relating to fluid from the right shoulder joint. Diagnostic code #3 This report was dictated in [place] Standard Time I agree with preliminary report issued by [facility] ([facility] report finalized on 06/25/19, 10:06 AM Central Time.
[2019-06-25] MEDS ORDERED: Furosemide 20 MG/2 ML VIAL IVPUSH ONE (13:04)
[2019-06-25] MEDS ORDERED: Morphine 10 MG/0.5 ML Oral Syringe PO PRN (15:19)
[2019-06-25] MEDS ORDERED: LORazepam 1 MG Tab PO PRN (15:21)
--- NOTE | 2019-06-25 15:24 | PCM.SN ---
- Free Text/Narrative Note: Patient continues to have large amounts of blood per rectum. She has become more lethargic. Patient will be made comfort measures per her wishes. We will add morphine and Ativan for comfort.
[2019-06-26] MEDS: Pantoprazole 40 MG Tab.CR PO SCH ×3 (05:39→20:49)
[2019-06-26] MEDS: Sertraline 50 MG Tab PO SCH (08:31)
[2019-06-26] MEDS: Metoprolol Tartrate 25 MG Tab PO SCH (08:32)
--- NOTE | 2019-06-26 12:02 | PCM.PN ---
- General Info Date of Service: 06/26/19 Admission Dx/Problem (Free Text): Admission Diagnosis/Problem Admission Diagnosis/Problem Gastrointestinal hemorrhage Functional Status: Reports: Pain Controlled, Tolerating Diet, Ambulating, Urinating. Denies: New Symptoms - Review of Systems General: Reports: Weakness, Fatigue. Denies: Fever, Malaise, Chills HEENT: Denies: Headaches, Sore Throat Pulmonary: Reports: Shortness of Breath, Cough. Denies: Pleuritic Chest Pain, Sputum, Wheezing Cardiovascular: Reports: Dyspnea on Exertion. Denies: Chest Pain, Palpitations Gastrointestinal: Reports: Decreased Appetite, Hematochezia. Denies: Abdominal Pain, Constipation, Melena, Nausea, Vomiting Genitourinary: Reports: Frequency, Urgency. Denies: Pain Musculoskeletal: Reports: No Symptoms Skin: Reports: No Symptoms. Denies: Cyanosis Neurological: Reports: Confusion (baseline ), Pre-Existing Deficit, Difficulty Walking, Weakness, Gait Disturbance Psychiatric: Reports: No Symptoms. Denies: Mood Lability, Anxiety, Agitation - Patient Data Vitals - Most Recent: Last Vital Signs Temp 99.9 F 06/26/19 08:29 Pulse 99 06/26/19 08:32 Resp 17 06/26/19 08:29 BP 137/89 06/26/19 08:32 Pulse Ox 92 L 06/26/19 08:29 Weight - Most Recent: 177 lb I&O - Last 24 Hours: Intake & Output 06/25/19 06/26/19 06/26/19 22:59 06:59 14:59 Intake Total 340 600 240 Output Total 1350 350 Balance -1010 250 240 Lab Results Last 24 Hours: Laboratory Results - last 24 hr 06/25/19 Range/Units 05:45 Crossmatch See Detail Med Orders - Current: Current Medications Acetaminophen (Tylenol) 650 mg PO Q6H PRN PRN Reason: Pain Last Admin: 06/25/19 04:44 Dose: 650 mg Hydrocodone Bitart/Acetaminophen ([place] 325-5 Mg) 1 tab PO Q8H PRN PRN Reason: PAIN Last Admin: 06/24/19 17:31 Dose: 1 tab Bisacodyl (Dulcolax) 5 mg PO DAILY PRN PRN Reason: Constipation Calcium Carbonate/Glycine (Tums) 1,000 mg PO Q2HR PRN PRN Reason: Indigestion Last Admin: 06/22/19 11:23 Dose: 1,000 mg Lactulose (Cephulac) 10 gm PO Q12H PRN PRN Reason: CONSTIPATION Lorazepam (Ativan) 1 mg PO Q4H PRN PRN Reason: Anxiety Metoprolol Tartrate (Lopressor) 12.5 mg PO DAILY [facility] Last Admin: 06/26/19 08:32 Dose: 12.5 mg Mirtazapine (Remeron) 7.5 mg PO BEDTIME [facility] Last Admin: 06/25/19 20:05 Dose: 7.5 mg Morphine Sulfate (Morphine 10 Mg/0.5 Ml Oral Syringe) 5 mg PO Q2H PRN PRN Reason: Shortness of Breath Ondansetron HCl (Zofran) 4 mg IVPUSH Q8H PRN PRN Reason: Nausea/Vomiting Last Admin: 06/24/19 09:12 Dose: 4 mg Pantoprazole Sodium (Protonix) 40 mg PO Q12H [facility] Last Admin: 06/26/19 08:31 Dose: 40 mg Aspercreme Lidocaine (76.5 Gm) 0 each TOP TID PRN PRN Reason: Pain Sertraline HCl (Zoloft) 75 mg PO DAILY [facility] Last Admin: 06/26/19 08:31 Dose: 75 mg Discontinued Medications Bisacodyl (Dulcolax) 10 mg RECTAL ONETIME ONE Stop: 06/24/19 08:55 Last Admin: 06/24/19 09:12 Dose: 10 mg Diphenhydramine HCl (Benadryl) 25 mg IVPUSH ONETIME ONE Stop: 06/24/19 17:39 Last Admin: 06/24/19 17:47 Dose: 25 mg Furosemide (Lasix) 20 mg IVPUSH ONETIME ONE Stop: 06/22/19 14:37 Last Admin: 06/22/19 15:28 Dose: 20 mg Furosemide (Lasix) 20 mg IVPUSH NOW ONE Stop: 06/25/19 13:05 Last Admin: 06/25/19 13:31 Dose: 20 mg Sodium Chloride (Normal Saline) 250 mls @ 50 mls/hr IV ASDIRECTED [facility] Last Admin: 06/22/19 02:25 Dose: 50 mls/hr Lactated Ringer's (Ringers, Lactated) 1,000 mls @ 50 mls/hr IV ASDIRECTED [facility] Last Admin: 06/22/19 00:22 Dose: 50 mls/hr Magnesium Sulfate 2 gm/ Premix 50 mls @ 25 mls/hr IV ONETIME ONE Stop: 06/22/19 11:08 Last Admin: 06/22/19 09:57 Dose: 25 mls/hr Sodium Chloride (Normal Saline) 100 mls @ 4 mls/sec IV ONETIME ONE Stop: 06/24/19 12:55 Last Admin: 06/24/19 13:52 Dose: 4 mls/sec Sodium Chloride (Normal Saline) 250 mls @ 25 mls/hr IV ASDIRECTED [facility] Last Admin: 06/25/19 10:30 Dose: 25 mls/hr Iopamidol (Isovue-370 (76%)) 100 ml IVPUSH ONETIME ONE Stop: 06/24/19 12:55 Last Admin: 06/24/19 13:34 Dose: 100 ml Iopamidol (Isovue-370 (76%)) 40 ml IVPUSH ONETIME ONE Stop: 06/24/19 12:55 Last Admin: 06/24/19 13:34 Dose: 40 ml Pantoprazole Sodium (Protonix Iv) 40 mg IVPUSH Q12H [facility] Last Admin: 06/25/19 18:38 Dose: 40 mg Senna/Docusate Sodium (Senna Plus) 1 tab PO BID [facility] Last Admin: 06/25/19 08:51 Dose: 1 tab Sodium Chloride (Saline Flush) 10 ml FLUSH ASDIRECTED PRN PRN Reason: Keep Vein Open Last Admin: 06/21/19 19:44 Dose: 10 ml - Exam Quality Assessment: DVT Prophylaxis General: Alert, Oriented (at times ), Cooperative, No Acute Distress HEENT: Pupils Equal, Mucous Membr. Moist/[place] Neck: Supple, Trachea Midline Lungs: Normal Respiratory Effort, Decreased Breath Sounds, Rhonchi (bilateral). No: Wheezing Cardiovascular: Irregular Rhythm GI/Abdominal Exam: Normal Bowel Sounds, Soft, Non-Tender, No Distention, No Abnormal Bruit (Female) Exam: Deferred Back Exam: Normal Inspection, Decreased Range of Motion Extremities: Non-Tender, No Pedal Edema, Normal Capillary Refill, Leg Pain, Limited Range of Motion Skin: Warm, Dry, Other ([place] ) Neurological: No New Focal Deficit Psy/Mental Status: Alert Sepsis Event Note - Evaluation Sepsis Screening Result: No Definite Risk - Focused Exam Vital Signs: Vital Signs Temp Pulse Resp BP Pulse Ox Pulse Ox 06/26/19 08:32 99 137/89 06/26/19 08:29 99.9 F 99 17 137/89 92 L 06/26/19 05:23 91 L Date Exam was Performed: 06/26/19 Time Exam was Performed: 11:54 - Problem List & Annotations (1) Status post fracture of femur SNOMED Code(s): 579758044 Code(s): Z87.81 - PERSONAL HISTORY OF (HEALED) TRAUMATIC FRACTURE Status: Acute Priority: High Current Visit: Yes (2) Anemia SNOMED Code(s): 977393475 Code(s): D64.9 - ANEMIA, UNSPECIFIED Status: Acute Priority: High Current Visit: Yes Qualifiers: Anemia type: unspecified type Qualified Code(s): D64.9 - Anemia, unspecified (3) Atrial fibrillation SNOMED Code(s): 25094790 Code(s): I48.91 - UNSPECIFIED ATRIAL FIBRILLATION Status: Chronic Priority: Medium Current Visit: Yes Qualifiers: Atrial fibrillation type: unspecified Qualified Code(s): I48.91 - Unspecified atrial fibrillation (4) Chronic anticoagulation SNOMED Code(s): 357347558 Code(s): Z79.01 - RN CARDIAC CATH (CURRENT) USE OF ANTICOAGULANTS Status: Chronic Priority: Medium Current Visit: No (5) Dementia SNOMED Code(s): 47110563 Code(s): F03.90 - UNSPECIFIED DEMENTIA WITHOUT BEHAVIORAL DISTURBANCE Status: Chronic Priority: Medium Current Visit: Yes Qualifiers: Dementia type: unspecified type Dementia behavioral disturbance: without behavioral disturbance Qualified Code(s): F03.90 - Unspecified dementia without behavioral disturbance (6) Rectal bleeding SNOMED Code(s): 59616695 Code(s): K62.5 - HEMORRHAGE OF ANUS AND RECTUM Status: Acute Priority: High Current Visit: Yes (7) Vitamin D deficiency SNOMED Code(s): 73322455 Code(s): E55.9 - VITAMIN D DEFICIENCY, UNSPECIFIED Status: Chronic Priority: Medium Current Visit: No (8) Hiatal hernia 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 esophagitis SNOMED Code(s): 140369177 Code(s): K44.9 - DIAPHRAGMATIC HERNIA WITHOUT OBSTRUCTION OR GANGRENE; K21.9 - GASTRO-ESOPHAGEAL REFLUX DISEASE WITHOUT ESOPHAGITIS Status: Chronic Priority: Medium Current Visit: No (9) Need for comfort care SNOMED Code(s): 087753634, 418449164 Code(s): OFV6823 - Status: Acute Priority: High Current Visit: Yes (10) End of life care SNOMED Code(s): 183211640, 551328026 Code(s): Z51.5 - ENCOUNTER FOR PALLIATIVE CARE Status: Acute Priority: High Current Visit: Yes - Problem List Review Problem List Initiated/Reviewed/Updated: Yes - Plan Plan:: Comfort care 2/2 significant GI bleeding and multiple co-morbidities Apparent UTI with foul smelling urine, increased frequency Multiple discussions had with patient and family PLAN - Discontinue some home medications, continue comfort care/psych meds - PO PRN ativan and morphine - Discharge pending placement - O2 as needed - Spiritual care consult Rectal bleeding Anemia Abdominal pain Previously on Eliquis prior to past surgery Discontinued on previous admission and discharged on aspirin alone Recently prescribed Eliquis, however did not start taking Found to be hypotensive with BRBPR in [facility] Positive LYNETTE in the ED Multiple significantly bloody stools over past few days PLAN - Scheduled pantoprazole BID - Hold ASA - Given 1 unit then developed fever as below - Discontinue tele, comfort care protocol, stop lab draws. Fever post transfusion likely febrile nonhemolytic transfusion reaction Possible fluid overload versus pneumonia Hypotension Atrial fibrillation Rate controlled Continue home medications PLAN - Monitor VS It appears that it was a febrile nonhemolytic transfusion reaction versus new infection. Chest x-ray done this morning showed bibasilar atelectasis with a confluence in the right base possibly pneumonia versus pleural effusion. White count is normal today. I spoke with her, her sister Jayla, and her son Norm and explained to them that with the finding of the CT exam showing air in the intrahepatic biliary system and no explanation for her blood loss that it would make surgical intervention difficult. Patient would have extremely difficult time being extubated and if this is a developing pneumonia would make it even more difficult. Nursing also reports that her blood pressure has started to decrease which could be secondary to hypovolemia versus possibly sepsis if this is a pneumonia. Pneumonia is unlikely with the normal white count, but it is in the differential. Patient states that she does not want aggressive treatment and, "if I I ." Patient's sister states that she has said several times in the past and most recently as 3 months ago that she does not want her life prolonged if she develops a serious illness. I confirmed this with her son Norm. I did try to get a hold of her oldest daughter, which she is estranged from, Jayla Florence and was unable to do so at the number given. ([phone]) phone rang and there was no voicemail. At this time I am going to treat the patient with comfort care based on her wishes. At this time without a white count and only a low-grade fever it is unlikely that this chest x-ray finding is a pneumonia. Also, if it were a pneumonia treatment would only prolong her suffering if she continues to bleed. I will give her a low dose of Lasix to help decrease some fluid overload that could cause dyspnea. Continue to monitor today for recurrent bleeding and fever. Dementia No acute issues PLAN - Let me sleep protocol PROPHYLAXIS DVT- TANISHA GI- pantoprazole CODE STATUS: DNR/DNI/Comfort care DISPOSITION: Patient was admitted to the ICU and subsequently transferred to the floor once she became more stable. Patient has been placed in [facility] to be closer to family. Dr. Tyler Montero accepting care. LOS >96 hr due to continued GI bleeding, variable hemoglobin. Pending placement. Would discharge today however SNF unable to accept due to staffing issues.
[2019-06-26] MEDS: Acetaminophen 325 MG Tab PO PRN (20:49)
[2019-06-26] MEDS: Mirtazapine 15 MG Tab PO SCH (20:49)
--- NOTE | 2019-06-27 07:27 | PCM.DCSUM1 ---
Discharge Summary - Hospital Course HPI Initial Comments: This is an 88-year-old female who comes to the ED via EMS for hematochezia. Information is very limited but she zamora sbeen javing multiple episode of hematochezia and hypotension for which she was sent here. OF note she was recently discharged from this facility after a fall with subsequent femur fracture and ORIF. Discharged on baby aspirin. Diagnosis: Stroke: No - Discharge Data Discharge Date: 06/27/19 (Admit date: 06/21/19) Discharge Disposition: DC/Tfer to SNF 03 Condition: Poor - Referral to Home Health Primary Care Physician: Anthony Dean MD - Discharge Diagnosis/Problem(s) (1) Status post fracture of femur SNOMED Code(s): 000275767 ICD Code: Z87.81 - PERSONAL HISTORY OF (HEALED) TRAUMATIC FRACTURE Status: Acute Priority: High (2) Anemia SNOMED Code(s): 639461274 ICD Code: D64.9 - ANEMIA, UNSPECIFIED Status: Acute Priority: High Qualifiers: Anemia type: unspecified type Qualified Code(s): D64.9 - Anemia, unspecified (3) Atrial fibrillation SNOMED Code(s): 68787476 ICD Code: I48.91 - UNSPECIFIED ATRIAL FIBRILLATION Status: Chronic Priority: Medium Qualifiers: Atrial fibrillation type: unspecified Qualified Code(s): I48.91 - Unspecified atrial fibrillation (4) Chronic anticoagulation SNOMED Code(s): 009770802 ICD Code: Z79.01 - APPLIANCE REPAIR TECHNICIAN (CURRENT) USE OF ANTICOAGULANTS Status: Chronic Priority: Medium (5) Dementia SNOMED Code(s): 48273965 ICD Code: F03.90 - UNSPECIFIED DEMENTIA WITHOUT BEHAVIORAL DISTURBANCE Status: Chronic Priority: Medium Qualifiers: Dementia type: unspecified type Dementia behavioral disturbance: without behavioral disturbance Qualified Code(s): F03.90 - Unspecified dementia without behavioral disturbance (6) Rectal bleeding SNOMED Code(s): 80750874 ICD Code: K62.5 - HEMORRHAGE OF ANUS AND RECTUM Status: Acute Priority: High (7) Vitamin D deficiency SNOMED Code(s): 18119332 ICD Code: E55.9 - VITAMIN D DEFICIENCY, UNSPECIFIED Status: Chronic Priority: Medium (8) Hiatal hernia 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 esophagitis SNOMED Code(s): 704908019 ICD Code: K44.9 - DIAPHRAGMATIC HERNIA WITHOUT OBSTRUCTION OR GANGRENE; K21.9 - GASTRO-ESOPHAGEAL REFLUX DISEASE WITHOUT ESOPHAGITIS Status: Chronic Priority: Medium (9) Need for comfort care SNOMED Code(s): 979416974, 599549083 ICD Code: VWO0961 - Status: Acute Priority: High (10) End of life care SNOMED Code(s): 403603983, 970973292 ICD Code: Z51.5 - ENCOUNTER FOR PALLIATIVE CARE Status: Acute Priority: High - Patient Summary/Data Consults: Consultations 06/23/19 11:37 Consult to Spiritual Care [CONS] Routine 06/24/19 07:49 Consult to Physician [CONS] Routine Labs Pending at D/C: None Recommended Follow-up Testing/Procedures: Follow-up with PCP as needed for comfort care Hospital Course: Flaca was admitted to the floor with a GI bleed. Her hemoglobin did appear to stabilize and then suddenly she began to complain of left lower quadrant abdominal pain and was noted to have not had a bowel movement in several days. She was given a suppository which resulted in a bowel movement followed by significant zaida red blood per rectum. Her hemoglobin at that time did continue to drop as well. She was started on a transfusion and was noted to have a fever, which was concerning for a transfusion reaction. Dr. Lazar, general surgeon, was brought on board and noted that the patient is a very poor surgical candidate. CTA of the abdomen and pelvis was obtained but was unable to show a definitive location for the bleed. Discussion ensued with the family and patient regarding her medical status, comorbidities, and lack of response to treatment. Ultimately all were in agreement to make the patient comfort care. She also began to have a significant cough and rales, along with frequent urination and foul-smelling urine. She did not want this worked up further. Some home medications were discontinued however her psychiatric med and pain control meds were continued. Vital signs were changed to once daily. PT/OT was canceled, along with all lab draws. Patient was then started on oral morphine and p.o. Ativan, neither which she required while here. Initially when the patient was hospitalized the family had been working on getting her placed in [place] at a intermediate up there. Patient was ultimately accepted and report given to their physician who accepted the patient for care. She was discharged to their facility. Prescriptions were sent for liquid morphine 5 mg p.o. every hour as needed for pain and liquid Ativan 0.5 mg every 6 hours as needed for anxiety. Her medications were otherwise continued or discontinued as noted on this document. She was discharged today under comfort care. Protonix Q12hr 40mg was also prescribed at discharge. - Patient Instructions Diet: Mechanical Soft Activity: As Tolerated Activity, Other: Toe touch left leg. Driving: Do Not Drive Other/Special Instructions: Follow-up with primary care provider as needed for comfort care. Home medications as ordered. PO ativan and morphine for pain/ restlessness/anxiety. Oxygen as needed for comfort care to keep saturations above 90. Toe touch left leg 2/2 femur fracture repair. - Discharge Plan *PRESCRIPTION DRUG MONITORING PROGRAM REVIEWED*: No *COPY OF PRESCRIPTION DRUG MONITORING REPORT IN PATIENT MURIEL: No Prescriptions/Med Rec: LORazepam [Ativan] 0.5 mg PO Q6H PRN #10 ml PRN Reason: Anxiety - comfort care Morphine [Morphine 20 MG/ML Soln] 5 mg PO Q2H PRN #30 ml PRN Reason: Pain - Comfort Care Pantoprazole [ProTONIX] 40 mg PO Q12H #40 tab.cr Home Medications: Home Meds Mirtazapine 7.5 mg PO BEDTIME 06/11/19 [History] Sertraline [Zoloft] 75 mg PO DAILY 06/11/19 [History] bisacodyL [Dulcolax] 5 mg PO DAILY PRN 06/11/19 [History] Hydrocodone/Acetaminophen [[place] 5-325 Tablet] 1 each PO Q8H PRN #15 tablet [Rx] Lactulose 10 gm PO Q12HR PRN #10 packet 06/16/19 [Rx] Metoprolol Tartrate 12.5 mg PO DAILY #15 tablet 06/16/19 [Rx] Lidocaine HCl [Aspercreme Lidocaine] 76.5 gm TP TID PRN 06/21/19 [History] LORazepam [Ativan] 0.5 mg PO Q6H PRN #10 ml 06/27/19 [Rx] Morphine [Morphine 20 MG/ML Soln] 5 mg PO Q2H PRN #30 ml 06/27/19 [Rx] Pantoprazole [ProTONIX] 40 mg PO Q12H #40 tab.cr 06/27/19 [Rx] Oxygen Therapy Mode: Nasal Cannula Oxygen Flow Rate (L/min): 2 (O2 for comfort ) Maintain SpO2% greater than: 90 Patient Handouts: End-of-Life Care, Rectal Bleeding, [id number] Forms: ED Department Discharge Referrals: Anthony Dean MD [Primary Care Provider] - - Discharge Summary/Plan Comment DC Time >30 min.: Yes (45 mins ) - General Info Date of Service: 06/27/19 Admission Dx/Problem (Free Text: Admission Diagnosis/Problem Admission Diagnosis/Problem Gastrointestinal hemorrhage Functional Status: Reports: Pain Controlled, Tolerating Diet, Ambulating, Urinating. Denies: New Symptoms, Incentive Spirometry - Review of Systems General: Reports: Fever, Weakness, Fatigue, Malaise. Denies: Chills HEENT: Reports: No Symptoms. Denies: Headaches, Sore Throat Pulmonary: Reports: No Symptoms. Denies: Shortness of Breath, Cough, Sputum, Wheezing Cardiovascular: Reports: No Symptoms. Denies: Chest Pain, Palpitations, Dyspnea on Exertion Gastrointestinal: Reports: Hematochezia. Denies: Abdominal Pain, Constipation, Diarrhea, Nausea, Vomiting Genitourinary: Reports: Frequency. Denies: Pain Musculoskeletal: Reports: Leg Pain Skin: Reports: Pallor Neurological: Reports: Confusion, Pre-Existing Deficit, Difficulty Walking, Weakness, Gait Disturbance Psychiatric: Reports: No Symptoms - Patient Data Vitals - Most Recent: Last Vital Signs Temp 99.9 F 06/26/19 21:40 Pulse 111 H 06/26/19 20:45 Resp 18 06/26/19 20:45 BP 127/86 06/26/19 20:45 Pulse Ox 94 L 06/26/19 20:45 Weight - Most Recent: 177 lb I&O - Last 24 hours: Intake & Output 06/26/19 06/27/19 06/27/19 22:59 06:59 14:59 Intake Total 360 100 Balance 360 100 Med Orders - Current: Current Medications Acetaminophen (Tylenol) 650 mg PO Q6H PRN PRN Reason: Pain Last Admin: 06/26/19 20:49 Dose: 650 mg Hydrocodone Bitart/Acetaminophen ([place] 325-5 Mg) 1 tab PO Q8H PRN PRN Reason: PAIN Last Admin: 06/24/19 17:31 Dose: 1 tab Bisacodyl (Dulcolax) 5 mg PO DAILY PRN PRN Reason: Constipation Calcium Carbonate/Glycine (Tums) 1,000 mg PO Q2HR PRN PRN Reason: Indigestion Last Admin: 06/22/19 11:23 Dose: 1,000 mg Lactulose (Cephulac) 10 gm PO Q12H PRN PRN Reason: CONSTIPATION Lorazepam (Ativan) 1 mg PO Q4H PRN PRN Reason: Anxiety Metoprolol Tartrate (Lopressor) 12.5 mg PO DAILY [facility] Last Admin: 06/26/19 08:32 Dose: 12.5 mg Mirtazapine (Remeron) 7.5 mg PO BEDTIME [facility] Last Admin: 06/26/19 20:49 Dose: 7.5 mg Morphine Sulfate (Morphine 10 Mg/0.5 Ml Oral Syringe) 5 mg PO Q2H PRN PRN Reason: Shortness of Breath Ondansetron HCl (Zofran) 4 mg IVPUSH Q8H PRN PRN Reason: Nausea/Vomiting Last Admin: 06/24/19 09:12 Dose: 4 mg Pantoprazole Sodium (Protonix) 40 mg PO Q12H [facility] Last Admin: 06/26/19 20:49 Dose: 40 mg Aspercreme Lidocaine (76.5 Gm) 0 each TOP TID PRN PRN Reason: Pain Sertraline HCl (Zoloft) 75 mg PO DAILY [facility] Last Admin: 06/26/19 08:31 Dose: 75 mg Discontinued Medications Bisacodyl (Dulcolax) 10 mg RECTAL ONETIME ONE Stop: 06/24/19 08:55 Last Admin: 06/24/19 09:12 Dose: 10 mg Diphenhydramine HCl (Benadryl) 25 mg IVPUSH ONETIME ONE Stop: 06/24/19 17:39 Last Admin: 06/24/19 17:47 Dose: 25 mg Furosemide (Lasix) 20 mg IVPUSH ONETIME ONE Stop: 06/22/19 14:37 Last Admin: 06/22/19 15:28 Dose: 20 mg Furosemide (Lasix) 20 mg IVPUSH NOW ONE Stop: 06/25/19 13:05 Last Admin: 06/25/19 13:31 Dose: 20 mg Sodium Chloride (Normal Saline) 250 mls @ 50 mls/hr IV ASDIRECTED [facility] Last Admin: 06/22/19 02:25 Dose: 50 mls/hr Lactated Ringer's (Ringers, Lactated) 1,000 mls @ 50 mls/hr IV ASDIRECTED [facility] Last Admin: 06/22/19 00:22 Dose: 50 mls/hr Magnesium Sulfate 2 gm/ Premix 50 mls @ 25 mls/hr IV ONETIME ONE Stop: 06/22/19 11:08 Last Admin: 06/22/19 09:57 Dose: 25 mls/hr Sodium Chloride (Normal Saline) 100 mls @ 4 mls/sec IV ONETIME ONE Stop: 06/24/19 12:55 Last Admin: 06/24/19 13:52 Dose: 4 mls/sec Sodium Chloride (Normal Saline) 250 mls @ 25 mls/hr IV ASDIRECTED [facility] Last Admin: 06/25/19 10:30 Dose: 25 mls/hr Iopamidol (Isovue-370 (76%)) 100 ml IVPUSH ONETIME ONE Stop: 06/24/19 12:55 Last Admin: 06/24/19 13:34 Dose: 100 ml Iopamidol (Isovue-370 (76%)) 40 ml IVPUSH ONETIME ONE Stop: 06/24/19 12:55 Last Admin: 06/24/19 13:34 Dose: 40 ml Pantoprazole Sodium (Protonix Iv) 40 mg IVPUSH Q12H [facility] Last Admin: 06/25/19 18:38 Dose: 40 mg Senna/Docusate Sodium (Senna Plus) 1 tab PO BID [facility] Last Admin: 06/25/19 08:51 Dose: 1 tab Sodium Chloride (Saline Flush) 10 ml FLUSH ASDIRECTED PRN PRN Reason: Keep Vein Open Last Admin: 06/21/19 19:44 Dose: 10 ml - Exam Quality Assessment: Reports: DVT Prophylaxis General: Reports: Alert, Cooperative, No Acute Distress. Denies: Oriented HEENT: Reports: Pupils Equal, EOMI, Mucous Membr. Moist/[place] Neck: Reports: Supple, Trachea Midline Lungs: Reports: Normal Respiratory Effort, Decreased Breath Sounds, Rhonchi Cardiovascular: Reports: Irregular Rhythm GI/Abdominal Exam: Normal Bowel Sounds, Soft, Non-Tender, No Distention, No Abnormal Bruit (Female) Exam: Deferred Rectal (Female) Exam: Deferred Extremities: Normal Range of Motion, No Pedal Edema, Normal Capillary Refill, Other (Leg brace on left leg. Bandage in palce. Nursing is changing meplex ) Skin: Reports: Warm, Dry, Intact, Other (Very pale ) Wound/Incisions: Reports: Dressing Dry and Intact Neurological: Reports: No New Focal Deficit Psy/Mental Status: Reports: Alert, Normal Affect, Normal Mood
[2019-06-27] MEDS: Acetaminophen/HYDROcodone 325-5 MG Tab PO PRN (07:55)
[2019-06-27] MEDS: Sertraline 50 MG Tab PO SCH (08:05)
[2019-06-27] MEDS: Pantoprazole 40 MG Tab.CR PO SCH (08:06)
[2019-06-27] MEDS: Metoprolol Tartrate 25 MG Tab PO SCH (08:20)
== END 2019-06-27 08:27 | DRG 378 ==
LOC: JD.ED 18:23 → JD.ICU 19:34 → JD.MS 06-22 08:58
PROVIDERS: ADMIT Internal Medicine; ATTEND Internal Medicine
PROC: 30233N1 Transfusion of Nonautologous Red Blood Cells into Peripheral Vein, Percutaneous Approach (ICD-10-PCS; principal; 2019-06-25)
DX: K92.1 Melena (principal); N39.0 Urinary tract infection, site not specified; J98.11 Atelectasis; D64.9 Anemia, unspecified; I48.91 Unspecified atrial fibrillation; M16.11 Unilateral primary osteoarthritis, right hip; Z66 Do not resuscitate; F03.90 Unspecified dementia, unspecified severity, without behavioral disturbance, psychotic disturbance, mood disturbance, and anxiety; Z51.5 Encounter for palliative care; Z91.048 Other nonmedicinal substance allergy status; E55.9 Vitamin D deficiency, unspecified; K21.9 Gastro-esophageal reflux disease without esophagitis; M19.90 Unspecified osteoarthritis, unspecified site; I50.9 Heart failure, unspecified; I95.9 Hypotension, unspecified; K44.9 Diaphragmatic hernia without obstruction or gangrene; R50.9 Fever, unspecified; T80.89XA Other complications following infusion, transfusion and therapeutic injection, initial encounter; Z91.09 Other allergy status, other than to drugs and biological substances; Z79.01 Long term (current) use of anticoagulants; Z79.82 Long term (current) use of aspirin; Z79.899 Other long term (current) drug therapy; Z90.49 Acquired absence of other specified parts of digestive tract; Z87.81 Personal history of (healed) traumatic fracture
CPT/HCPCS: 36415; 36430; 71045; 71045-26; 72191; 72191-26; 74175; 74175-26; 80048; 80053; 81001; 83735; 83880; 84100; 85014; 85018; 85025; 85610; 85730; 86850; 86900; 86901; 86922; 87641; 93005; 94760; 94761; 97110-GO; 97110-GP; 97161-GP; 97165-GO; 97530-GO; 97530-GP; 99283; 99285-25; A9270-GY; C9113; J1200; J2405; J3475; J7050; J7120; P9016; Q9967